=== PATIENT | female | born 1995 | race Caucasian/White ===

== ENCOUNTER → 2018-05-08 09:56 | Outpatient (CLI) | payer BC, SELFPAY ==
[2018-05-07 22:11] LABS: Chlamydia Trachomatis by PCR Negative (Negative); Neisserai gonorrhoeae by PCR Negative (Negative); Probe Check PASS; Sample Adequacy Control PASS; Specimen Processing Control PASS
[2018-05-08 11:18] LABS: Basophil# 0.01 X10^3/uL; Basophil% 0.1 % (0-1); Eosinophil# 0.06 X10^3/uL; Eosinophils% 0.6 % (0-5); Hematocrit 40.2 % (37-47); Hemoglobin 13.3 g/dl (12.0-15.0); Lymphocyte % 18.3 % (19-41); Mean Corp Hgb Conc 33.1 g/gl (32-36); Mean Corpuscular Hgb 31.1 pg (27.0-32.0); Mean Corpuscular Volume 93.9 fL (81-99); Mean Platelet Vol. 8.6 fl (6.2-12.0); Monocyte% 5.4 % (0-10); Neutrophil % 75.5 % (47-70); POSITIVE COUNT NO; POSITIVE DIFFERENTIAL NO; POSITIVE MORPHOLOGY NO; Platelet Count 303 K/mm3 (150-450); RBC Distribution Width CV 12.7 % (11.6-14.6); RBC Distribution Width SD 43.5 fl (35.1-43.9); Red Blood Count 4.28 M/mm3 (4.2-5.4); White Blood Count 9.3 K/mm3 (4.4-11.0)
[2018-05-08 12:07] LABS: Glucose Challenge Gest 1H 50g 128 mg/dL (70-140)
[2018-05-09 10:27] LABS: HIV - WCH Non-Reactive (Nonreactive); Rubella IgG 43.3 IU/mL
[2018-05-10 17:20] LABS: HEPATITIS B SURFACE AG Negative (Negative)
[2018-05-11 05:01] LABS: Rapid Plasmin Reagin (RPR) NONREACTIVE (NONREACTIVE)
== END ==
PROVIDERS: Family Provider Student in an Organized Health Care Education/Training Program; PCP Student in an Organized Health Care Education/Training Program; Visit Provider Obstetrics & Gynecology
DX: O09.90 Supervision of high risk pregnancy, unspecified, unspecified trimester (principal)
CPT/HCPCS: 36415; 82950; 85025; 86592; 86703; 86762; 86850; 86900; 87086; 87088; 87340; 87491; 87591

== ENCOUNTER → 2018-07-17 12:48 | Outpatient (CLI) | payer BC, SELFPAY ==
--- NOTE | 2018-07-17 12:49 | US_ITS ---
STUDY: SECOND AND THIRD TRIMESTER OBSTETRICAL ULTRASOUND REASON FOR EXAM: Female, 23 years old. Routine survey. LMP: March 05, 2018. TECHNIQUE: Transabdominal PRIOR ULTRASOUND: None. FINDINGS: There is a single intrauterine fetus. The fetus is in a variable presentation. There is demonstrated cardiac activity with a heart rate of 146 bpm. There is a normal amniotic fluid volume. The largest amniotic fluid pocket measures 6.0 cm x 4.5 cm. The amniotic fluid index (ALTAF) is normal. The placenta is anterior with a complete previa. A short segment of the placenta covers the os There are Grade 0 placental changes. The cervix measures 3.4 cm in length. The bilateral adnexal regions are normal. BIOMETRY: BPD: 4.48 cm: 19 weeks, 4 days HC: 16.52 cm: 19 weeks, 2 days AC: 14.28 cm: 19 weeks, 5 days FL: 3.18 cm: 20 weeks, 0 days CI: 80% FL/BPD: 71% FL/HC: FL/AC: 22% HC/AC: 1.16 age by current US: 19 weeks, 5 days. SAI by current US: December 06, 2018. Estimated weight: 308 grams, +/- 45 grams, 78 %. Age by LMP: 19 weeks, 1 days. SAI by LMP: December 10, 2018. ANATOMY: Gender: Male Cranium: Normal lateral ventricles. Normal choroid plexus. Normal cerebellum. Normal cisterna magna. Normal face, nose and lips. Chest: Normal 4-chamber heart. Abdomen/Pelvis: Normal diaphragm. Normal stomach. Normal abdominal wall. Normal cord insertion. Normal 3 vessel cord. Normal kidneys. Normal bladder. Spine: Normal cervical spine. Normal thoracic spine. Normal lumbar spine. Normal sacrum. Extremities: Normal bilateral upper extremities. Normal bilateral lower extremities. US/OB Anatomy Scan IMPRESSION: Single live intrauterine gestation with a mean gestational age of 19 weeks and 5 days. Anterior complete placenta previa. A short segment of the placenta covers the cervical os. A follow-up sonogram is recommended. Electronically Signed: Karthikeyan Kruse MD at 8:29 EDT Tel [phone], Service support ,
== END ==
LOC: OPUS 12:49
PROVIDERS: Family Provider Student in an Organized Health Care Education/Training Program; PCP Student in an Organized Health Care Education/Training Program; Visit Provider Nurse Practitioner Women's Health
DX: Z34.92 Encounter for supervision of normal pregnancy, unspecified, second trimester (principal)
CPT/HCPCS: 76805

== ENCOUNTER 2018-08-20 17:15 | Outpatient (CLI) | payer BC, SELFPAY ==
[2018-08-20 18:03] VITALS: BMI 33.1
[2018-08-20 18:37] LABS: Mucous, Urine 0 SEEN /hpf (<or=2+); Red Blood Cells-Urine 0 SEEN /hpf (0-5)
[2018-08-20 18:40] LABS: Color, Urine Yellow (Yellow); Glucose, Dipstick Normal (Normal); Ketone-Dipstick Negative (Negative); Leukocyte Esterase-Dipstick 25 /ul (Negative); Nitrite-Dipstick Negative (Negative); Occult Blood-Urine Negative /ul (Negative); Protein-Dipstick 15 mg/dl (Negative); Specific Gravity, Urine 1.025 (1.002-1.030); Urine Bilirubin Dipstick Negative (Negative); Urine Clarity Clear (Clear); Urine Urobilinogen 1 mg/dl (Normal)
[2018-08-20 18:49] LABS: Bacteria 1+ /hpf (None Seen); Squamous Epithelial Cells - UA 0-5 SEEN /hpf (5-10); White Blood Cells 0-5 SEEN /hpf (0-5)
--- NOTE | 2018-08-20 21:02 | OB.TRI.HP_ITS ---
- Problem List (1) Pelvic pressure in female Status: Acute History of Present Illness Date of Service: 08/20/18 Was patient seen by the physician?: Yes Reason For Visit: R/O LABOR Date of Service: 08/20/18 Final SAI: 12/10/18 Gestational age: 24 Weeks and 0 Days History of Present Illness: 23-year-old at 24 weeks presents with pelvic pressure. She denied any vaginal bleeding or loss of fluid she has a history of cervical shortening and a placenta previa. Patient denies any vaginal bleeding. She has a history of a previous term delivery via . Recent ultrasound showed a placenta previa that was anterior without any signs of accreta. She denies any dysuria or urinary urgency or frequency Allergies No Known Allergies Allergy (Verified 08/20/18 18:05) - Pertinent Past Medical History Medical History: Past Medical History (Last Reviewed 08/06/18 @ 16:04 by Lorelei Grant) Acid reflux Anxiety Going to counseling Bicornate uterus Surgical History: Past Surgical History (Last Reviewed 08/06/18 @ 16:04 by Lorelei Grant) H/O section Onset Date: ~2009 Laboratory Studies: Laboratory Tests 08/20/18 Range/Units 18:25 Urine Color Yellow (Yellow) Urine Clarity Clear (Clear) Urine pH 6.0 (5.0 - 8.0) Ur Specific [place] 1.025 (1.002-1.030) Urine Protein 15 H (Negative) mg/dl Urine Glucose (UA) Normal (Normal) mg/dl Urine Ketones Negative (Negative) mg/dl Urine Occult Blood Negative (Negative) /ul Urine Nitrite Negative (Negative) Urine Bilirubin Negative (Negative) mg/dL Urine Urobilinogen 1 H (Normal) mg/dl Ur Leukocyte Esterase 25 H (Negative) /ul Urine RBC 0 SEEN (0-5) /hpf Urine WBC 0-5 SEEN (0-5) /hpf Ur Squamous Epith Cells 0-5 SEEN (5-10) /hpf Urine Bacteria 1+ (None Seen) /hpf Urine Mucus 0 SEEN (<or=2+) /hpf Review of Systems Constitutional: Denies: Fever, Malaise Eyes: Denies: Blurred vision, Vision Change HEENT: Denies: Head Aches, Visual Changes Cardiovascular: Denies: Chest Pain, Palpitations Respiratory: Denies: Cough, Shortness of Breath, Wheezing Gastrointestinal: Denies: Abdominal Pain, Diarrhea, Nausea, Vomiting Genitourinary: Denies: Dysuria, Hematuria Musculoskeletal: Denies: Joint Pain, Muscle pain Skin: Denies: Lesions, Rash Neurological: Denies: Blurred vision, Focal weakness, Headaches Psychiatric: Denies: Anxiety, Depression Endocrine: Denies: Heat/ Cold Intolerance Hematologic/ Lymphatic: Denies: Easy Bruising, Easy Bleeding Physical Exam General: Alert, Cooperative, No apparent distress HEENT: Atraumatic, Normocephalic. Negative for: Thyromegaly, Lymphadenopathy Cardiovascular: Regular rate Lungs: Normal air movement Abdomen: Soft, Non Tender, Gravid Neurological: Deep Tendon Reflexes 2+/4 and Symmetrical, Neuro grossly intact. 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 Negative for: Vulvar lesions Estimated gestational size: Appropriate for gestational size Presentation: Cephalic Cervix Dilation (cm): 0 - Cervix checked visually with a speculum NST - FHR Rate Baby A Baseline: 140 Uterine Activity:: No contractions present Impression/Plan 23-year-old at 24 weeks presents with pelvic pressure History of cervical shortening on vaginal progesterone. On visual inspection cervix is closed and does not appear to be visually effaced. No contractions on the monitor. Plan discharged home
== END 2018-08-20 19:36 | disposition home or self-care (01) ==
LOC: WPOUT 17:34 → WP 17:35
PROVIDERS: Family Provider Student in an Organized Health Care Education/Training Program; PCP Student in an Organized Health Care Education/Training Program; Referring Provider Obstetrics & Gynecology; Visit Provider Obstetrics & Gynecology
DX: O26.892 Other specified pregnancy related conditions, second trimester (principal); R10.2 Pelvic and perineal pain; Z3A.24 24 weeks gestation of pregnancy
CPT/HCPCS: 59025; 59050; 76815; 81001; 87086; 87088; 99218; G0378

== ENCOUNTER → 2018-09-03 16:18 | Outpatient (CLI) | payer BC, SELFPAY ==
[2018-09-03 17:11] LABS: Absolute Lymphocyte Count 1.78 X10^3/ul (0.83-4.51); Absolute Neutrophil Count 10.6 X10^3/uL (2.0-7.7); Basophil# 0.01 X10^3/uL; Basophil% 0.1 % (0-1); Eosinophils% 0.7 % (0-5); Hematocrit 34.7 % (37-47); Hemoglobin 11.3 g/dl (12.0-15.0); Lymphocyte # 1.78 X10^3/ul (4.0); Lymphocyte % 13.3 % (19-41); Mean Corp Hgb Conc 32.6 g/gl (32-36); Mean Corpuscular Hgb 31.8 pg (27.0-32.0); Mean Corpuscular Volume 97.7 fL (81-99); Mean Platelet Vol. 8.5 fl (6.2-12.0); Monocyte# 0.83 X10^3/uL; Monocyte% 6.2 % (0-10); Neutrophil # 10.58 X10^3/uL (2.7-7.7); Neutrophil % 79.4 % (47-70); Platelet Count 325 K/mm3 (150-450); RBC Distribution Width CV 12.8 % (11.6-14.6); RBC Distribution Width SD 43.9 fl (35.1-43.9); Red Blood Count 3.55 M/mm3 (4.2-5.4); White Blood Count 13.3 K/mm3 (4.4-11.0)
[2018-09-03 17:14] LABS: Glucose Challenge Gest 1H 50g 133 mg/dL (70-140)
[2018-09-03 17:16] LABS: POSITIVE COUNT NO; POSITIVE DIFFERENTIAL NO; POSITIVE MORPHOLOGY NO
[2018-09-03 17:17] LABS: Protein, Urine (Random) 21.1 mg/dL (<11.9); Protein:Creat Ratio 142 mg/g CRE (0-200)
== END ==
LOC: LAB 16:20
PROVIDERS: Family Provider Student in an Organized Health Care Education/Training Program; PCP Student in an Organized Health Care Education/Training Program; Referring Provider Obstetrics & Gynecology; Visit Provider Obstetrics & Gynecology
DX: O12.10 Gestational proteinuria, unspecified trimester (principal); Z3A.00 Weeks of gestation of pregnancy not specified
CPT/HCPCS: 36415; 82570; 82950; 84156; 85025

== ENCOUNTER → 2018-09-03 19:49 | Outpatient (CLI) | payer BC, SELFPAY ==
[2018-09-03 20:27] LABS: Protein, Urine (Random) 16.7 mg/dL (<11.9); Protein:Creat Ratio 218 mg/g CRE (0-200)
== END ==
PROVIDERS: Family Provider Student in an Organized Health Care Education/Training Program; PCP Student in an Organized Health Care Education/Training Program; Referring Provider Obstetrics & Gynecology; Visit Provider Obstetrics & Gynecology
DX: O12.10 Gestational proteinuria, unspecified trimester (principal); Z3A.00 Weeks of gestation of pregnancy not specified
CPT/HCPCS: 82570; 84156

== ENCOUNTER 2018-09-08 20:45 | Outpatient (CLI) | payer BC, MEDICAID, SELFPAY ==
[2018-09-08 20:59] VITALS: BMI 33.5
[2018-09-08 21:23] LABS: Hematocrit 34.4 % (37-47); Hemoglobin 11.4 g/dl (12.0-15.0); Mean Corp Hgb Conc 33.1 g/gl (32-36); Mean Corpuscular Hgb 31.8 pg (27.0-32.0); Mean Corpuscular Volume 96.1 fL (81-99); Mean Platelet Vol. 8.2 fl (6.2-12.0); Platelet Count 258 K/mm3 (150-450); RBC Distribution Width CV 12.7 % (11.6-14.6); RBC Distribution Width SD 44.5 fl (35.1-43.9); Red Blood Count 3.58 M/mm3 (4.2-5.4); White Blood Count 11.1 K/mm3 (4.4-11.0)
[2018-09-08 21:28] LABS: Scan Indicated on CBC? Y/N NO
[2018-09-08 21:43] LABS: Fibrinogen 410 mg/dl (203-444)
--- NOTE | 2018-09-17 21:13 | OB.TRI.NOTE ---
- Problem List (1) Vaginal bleeding during Status: Acute (2) Antepartum cervical shortening Status: Acute Comment: given vaginal progesterone (3) Marginal insertion of umbilical cord Status: Acute Comment: growth US every 4 weeks (4) Placenta previa antepartum Status: Acute Comment: Resolved/Anterior previa, no accreata, previous C/S. MFM Consult US History of Present Illness Date of Service: 09/08/18 Was patient seen by the physician?: Yes Reason For Visit: BLEEDING History of Present Illness: patient presented with a small amount of vaginal bleeding- no clots, denied any regular ctx. cervix closed visibly. good fm Allergies No Known Allergies Allergy (Verified 09/17/18 15:05) - Pertinent Past Medical History Medical History: Past Medical History (Last Reviewed 09/17/18 @ 15:05 by Joyce Castro) Acid reflux Anxiety Going to counseling Bicornate uterus Surgical History: Past Surgical History (Last Reviewed 09/17/18 @ 15:05 by Joyce Castro) H/O section Onset Date: ~2009 Laboratory Studies: Laboratory Tests 09/08/18 09/08/18 Range/Units 21:10 21:10 WBC 11.1 H (4.4-11.0) K/mm3 RBC 3.58 L (4.2-5.4) M/mm3 Hgb 11.4 L (12.0-15.0) g/dl Hct 34.4 L (37-47) % MCV 96.1 (81-99) fL MCH 31.8 (27.0-32.0) pg MCHC 33.1 (32-36) g/gl RDW 12.7 (11.6-14.6) % RDW Differential 44.5 H (35.1-43.9) fl Plt Count 258 (150-450) K/mm3 MPV 8.2 (6.2-12.0) fl Fibrinogen 410 (203-444) mg/dl NST - FHR Rate Baby A Baseline: 145 Variability:: Moderate Accelerations:: 15 x 15 Decelerations:: None NST Reactive:: Yes FHR Category:: Category I Uterine Activity:: no regular Impression/Plan vaginal bleeding in . patient monitored and stable, dc home bleeding precautions reviewed
== END 2018-09-08 22:00 | disposition home or self-care (01) ==
LOC: WPOUT 20:50 → WP 20:51
PROVIDERS: Family Provider Student in an Organized Health Care Education/Training Program; PCP Student in an Organized Health Care Education/Training Program; Visit Provider Obstetrics & Gynecology
DX: O46.90 Antepartum hemorrhage, unspecified, unspecified trimester (principal); Z3A.00 Weeks of gestation of pregnancy not specified
CPT/HCPCS: 36415; 59025; 59050; 85027; 85384; 99218; G0378

== ENCOUNTER 2018-09-11 09:00 | Outpatient (CLI) | payer BC, MEDICAID, SELFPAY ==
[2018-09-11 09:08] VITALS: BMI 33.5
--- NOTE | 2018-09-11 09:08 | US_ITS ---
STUDY: SECOND AND THIRD TRIMESTER OBSTETRICAL ULTRASOUND - LIMITED REASON FOR EXAM: Female, 23 years old. Bleeding. History of placenta previa. LMP: March 05, 2018. PRIOR ULTRASOUND: Comparison is made with prior examination dated July 17, 2018. TECHNIQUE: Transabdominal and Transvaginal TECHNICAL QUALITY: Adequate. FINDINGS: There is a single intrauterine fetus. The fetus is in a cephalic presentation. There is demonstrated cardiac activity with a heart rate of 149 bpm. There is a normal amniotic fluid volume. The largest amniotic fluid pocket measures 5.8 cm. The amniotic fluid index (ALTAF) is 18.0 cm. The placenta is anterior with a complete previa. There are Grade 1 placental changes. There is a 2.9 cm x 2.6 cm x 0.9 cm hypoechoic finding deep to the placenta adjacent to the fundus. A similar appearing finding measuring 5.3 cm x 4.7 cm x 1.1 cm along the lower uterine segment near the cervix. These may represent focal areas of a retroplacental hematomas. The cervix measures 4.0 cm in length. US/OB Limited (No Biometrics) IMPRESSION: Anterior complete previa. Findings suggestive of a 2 retroplacental hematomas and possible separation as described. Electronically Signed: Karthikeyan Kruse MD at 11:10 EST Tel [phone], Service support ,
[2018-09-11 09:52] LABS: Hematocrit 34.9 % (37-47); Hemoglobin 11.4 g/dl (12.0-15.0); Mean Corp Hgb Conc 32.7 g/gl (32-36); Mean Corpuscular Hgb 31.5 pg (27.0-32.0); Mean Corpuscular Volume 96.4 fL (81-99); Mean Platelet Vol. 8.3 fl (6.2-12.0); Platelet Count 251 K/mm3 (150-450); RBC Distribution Width CV 12.8 % (11.6-14.6); RBC Distribution Width SD 44.9 fl (35.1-43.9); Red Blood Count 3.62 M/mm3 (4.2-5.4); Scan Indicated on CBC? Y/N NO
[2018-09-11 10:05] LABS: Fibrinogen 385 mg/dl (203-444)
[2018-09-11] MEDS: Betamethasone/Betamethasone 30 MG/5 ML Vial 12 MG IM (11:05)
--- NOTE | 2018-09-17 21:26 | OB.TRI.HP_ITS ---
- Problem List (1) Vaginal bleeding during Status: Acute (2) Antepartum cervical shortening Status: Acute Comment: given vaginal progesterone (3) Marginal insertion of umbilical cord Status: Acute Comment: growth US every 4 weeks (4) Placenta previa antepartum Status: Acute Comment: Resolved/Anterior previa, no accreata, previous C/S. MFM Consult US (5) History of delivery, antepartum Status: Acute Comment: considering , education given History of Present Illness Date of Service: 09/11/18 Was patient seen by the physician?: Yes Reason For Visit: BLEEDING History of Present Illness: patient evaluated and given steroid dose secondary to bleeding in for the second time in several days. ordered ultrasound and showed abruption in lower uterine segment over the previa, but fibrinogens and Hg are stable. Allergies No Known Allergies Allergy (Verified 09/17/18 15:05) - Pertinent Past Medical History Medical History: Past Medical History (Last Reviewed 09/17/18 @ 15:05 by Joyce Castro) Acid reflux Anxiety Going to counseling Bicornate uterus Surgical History: Past Surgical History (Last Reviewed 09/17/18 @ 15:05 by Joyce Castro) H/O section Onset Date: ~2009 Laboratory Studies: Laboratory Tests 09/11/18 09/11/18 Range/Units 09:40 09:40 WBC 11.0 (4.4-11.0) K/mm3 RBC 3.62 L (4.2-5.4) M/mm3 Hgb 11.4 L (12.0-15.0) g/dl Hct 34.9 L (37-47) % MCV 96.4 (81-99) fL MCH 31.5 (27.0-32.0) pg MCHC 32.7 (32-36) g/gl RDW 12.8 (11.6-14.6) % RDW Differential 44.9 H (35.1-43.9) fl Plt Count 251 (150-450) K/mm3 MPV 8.3 (6.2-12.0) fl Fibrinogen 385 (203-444) mg/dl Review of Systems Constitutional: Denies: Fever, Malaise Eyes: Denies: Blurred vision, Vision Change HEENT: Denies: Head Aches, Visual Changes Cardiovascular: Denies: Chest Pain, Palpitations Respiratory: Denies: Cough, Shortness of Breath, Wheezing Gastrointestinal: Denies: Abdominal Pain, Diarrhea, Nausea, Vomiting Genitourinary: Denies: Dysuria, Hematuria Gynecological: Reports: Vaginal bleeding Musculoskeletal: Denies: Joint Pain, Muscle pain Skin: Denies: Lesions, Rash Neurological: Denies: Blurred vision, Focal weakness, Headaches Psychiatric: Denies: Anxiety, Depression Endocrine: Denies: Heat/ Cold Intolerance Hematologic/ Lymphatic: Denies: Easy Bruising, Easy Bleeding Physical Exam General: Alert, Cooperative, No apparent distress HEENT: Atraumatic, Normocephalic. Negative for: Thyromegaly, Lymphadenopathy Cardiovascular: Regular rate Lungs: Normal air movement Abdomen: Soft, Non Tender, Gravid Neurological: Deep Tendon Reflexes 2+/4 and Symmetrical, Neuro grossly intact. 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 Negative for: Vulvar lesions Estimated gestational size: Appropriate for gestational size Presentation: Cephalic NST - FHR Rate Baby A Baseline: 140 Variability:: Moderate Accelerations:: 15 x 15 Decelerations:: None NST Reactive:: Yes FHR Category:: Category I Uterine Activity:: no regular Impression/Plan 23 yo 28 week with abruption, vaginal bleeding and previa prematurity- celestone given and discussed with mfm- recommend transport for extended stay and observation.
== END 2018-09-11 15:20 | disposition short-term general hospital (02) ==
LOC: WPOUT 09:07 → WP 09:07
PROVIDERS: Family Provider Student in an Organized Health Care Education/Training Program; PCP Student in an Organized Health Care Education/Training Program; Referring Provider Obstetrics & Gynecology; Visit Provider Obstetrics & Gynecology
DX: O45.92 Premature separation of placenta, unspecified, second trimester (principal); O44.12 Complete placenta previa with hemorrhage, second trimester; Z3A.28 28 weeks gestation of pregnancy
CPT/HCPCS: 36415; 59025; 59050; 76815; 85027; 85384; 96372; 99218; A4216; G0378; J0702

== ENCOUNTER → 2018-10-01 17:14 | Outpatient (CLI) | payer BC, SELFPAY ==
[2018-10-01 15:56] VITALS: BMI 33.5
--- OUTSIDE RECORDS SUMMARY | 2018-11-13 16:27 | XMS RPT_ITS ---
:1995 Author Organization [place] Support Name Relationship Address Phone RENZO TRIMBLE Unavailable [address] + [place] [address] JUAN R MOURA Unavailable [address] + [place] [address] WAYSA Unavailable [address] + [place] [address] RENZO TRIMBLE Unavailable [address] + [place] [address] SANDRA MOURAI Unavailable [address] + [place] [address] WAYSA Unavailable [address] + [place] [address] RENZO TRIMBLE Unavailable [address] + [place] [address] JUAN R MOURA Unavailable [address] + [place] [address] WAYSA Unavailable [address] + [place] [address] RENZO TRIMBLE Unavailable [address] + [place] [address] JUAN R MOURA Unavailable [address] + [place] [address] WAYSA Unavailable [address] + [place] [address] RENZO TRIMBLE Unavailable [address] + [place] [address] SANDRA MOURAI Unavailable [address] + [place] [address] WAYSA Unavailable [address] + [place] [address] RENZO TRIMBLE Unavailable [address] + [place] [address] ZENY, JUAN R Unavailable [address] + [place] [address] WAYSA Unavailable [address] + [place] [address] RENZO TRIMBLE Unavailable [address] + [place] [address] MOURA, JUAN R Unavailable [address] + [place] [address] WAYSA Unavailable [address] + [place] [address] RENZO TRIMBLE Unavailable [address] + [place] [address] MOURA, JUAN R Unavailable [address] + [place] [address] WAYSA Unavailable [address] + [place] [address] RENZO TRIMBLE Unavailable [address] + [place] [address] MOURA, JUAN R Unavailable [address] + [place] [address] WAYSA Unavailable [address] + [place] [address] MOURA, JUAN R Unavailable Unavailable + MOURA, JUAN R Unavailable Unavailable + MOURA, JUAN R Unavailable Unavailable + MOURA, JUAN R Unavailable Unavailable + MOURA, JUAN R Unavailable Unavailable + RENZO TRIMBLE Unavailable [address] + [place] [address] MOURA, JUAN R Unavailable [address] + [place] [address] WAYSA Unavailable [address] + [place] [address] RENZO TRIMBLE Unavailable [address] + [place] [address] MOURA, JUAN R Unavailable [address] + [place] [address] WAYSA Unavailable [address] + [place] [address] RENZO TRIMBLE Unavailable [address] + [place] [address] SANDRA MOURAI Unavailable [address] + [place] [address] WAYSA Unavailable [address] + [place] [address] RENZO TRIMBLE Unavailable [address] + [place] [address] ZENY JUAN R Unavailable [address] + [place] [address] WAYSA Unavailable [address] + [place] [address] ZENY, JUAN R Unavailable Unavailable + RENZO TRIMBLE Unavailable [address] + [place] [address] SANDRA MOURAI Unavailable [address] + [place] [address] WAYSA Unavailable [address] + [place] [address] RENZO TRIMBLE Unavailable [address] + [place] [address] JUAN R MOURA Unavailable [address] + [place] [address] WAYSA Unavailable [address] + [place] [address] RENZO TRIMBLE Unavailable [address] + [place] [address] JUAN R MOURA Unavailable [address] + [place] [address] WAYSA Unavailable [address] + [place] [address] RENZO TRIMBLE Unavailable [address] + [place] [address] ZENY JUAN R Unavailable [address] + [place] [address] WAYSA Unavailable [address] + [place] [address] RENZO TRIMBLE Unavailable [address] + [place] [address] ZENY JUAN R Unavailable [address] + [place] [address] WAYSA Unavailable [address] + [place] [address] ZENY JUAN R Unavailable Unavailable + RENZO TRIMBLE Unavailable [address] + [place] [address] WAYSA Unavailable [address] + [place] [address] RENZO TRIMBLE Unavailable [address] + [place] [address] ZENY JUAN R Unavailable Unavailable + [place] [address] WAYSA Unavailable [address] + [place] [address] RENZO TRIMBLE Unavailable [address] + [place] [address] WAYSA Unavailable [address] + [place] [address] RENZO TRIMLBE Unavailable [address] + [place] [address] WAYSA Unavailable [address] + [place] [address] RENZO TRIMBLE Unavailable [address] + [place] [address] WAYSA Unavailable [address] + [place] [address] RENZO TRIMBLE Unavailable [address] + [place] [address] WAYSA Unavailable [address] + [place] [address] RENZO TRIMBLE Unavailable [address] + [place] [address] WAYSA Unavailable [address] + [place] [address] RENZO TRIMBLE Unavailable [address] + [place] [address] WAYSA Unavailable [address] + [place] [address] RENZO TRIMBLE Unavailable [address] + [place] [address] WAYSA Unavailable [address] + [place] [address] Care Team Providers Name Role Phone Savana Solis Admitting Unavailable Marcanthony, Savana Attending Unavailable Marcanthony, Savana Referring Unavailable Healy, Meño Primary Care Unavailable Marcanthony, Savana Consulting Unavailable Marcanthony, Savana Admitting Unavailable Marcanthony, Savana Attending Unavailable Marcanthony, Savana Referring Unavailable Healy, Meño Primary Care Unavailable Marcanthony, Savana Consulting Unavailable Marcanthony, Savana Admitting Unavailable Marcanthony, Savana Attending Unavailable Marcanthony, Savana Referring Unavailable Healy, Meño Primary Care Unavailable Marcanthony, Savana Consulting Unavailable Marcanthony, Savana Attending Unavailable Healy, Meño Referring Unavailable Healy, Meño Primary Care Unavailable Marcanthony, Savana Attending Unavailable Marcanthony, Savana Referring Unavailable Healy, Meño Primary Care Unavailable Nita, Farrah Attending Unavailable Healy, Meño Referring Unavailable Healy, Meño Primary Care Unavailable Healy, Meño Attending Unavailable Marcanthony, Savana Attending Unavailable Healy, Meño Referring Unavailable Healy, Meño Primary Care Unavailable Nita, Farrah Attending Unavailable Healy, Meño Primary Care Unavailable Marcanthony, Savana Attending Unavailable Healy, Meño Referring Unavailable Marcanthony, Savana Attending Unavailable Marcanthony, Savana Referring Unavailable Healy, Meño Primary Care Unavailable Marcanthony, Savana Attending Unavailable Marcanthony, Savana Referring Unavailable Healy, Meño Primary Care Unavailable Marcanthony, Savana Consulting Unavailable Marcanthony, Savana Attending Unavailable Healy, Meño Referring Unavailable Marcanthony, Savana Attending Unavailable Marcanthony, Savana Referring Unavailable Healy, Meño Primary Care Unavailable Marcanthony, Savana Attending Unavailable Healy, Meño Primary Care Unavailable Marcanthony, Savana Referring Unavailable Marcanthony, Savana Admitting Unavailable Marcanthony, Savana Attending Unavailable Marcanthony, Savana Referring Unavailable Healy, Meño Primary Care Unavailable Marcanthony, Savana Consulting Unavailable Marcanthony, Savana Admitting Unavailable Nita, Farrah Attending Unavailable Marcanthony, Savana Referring Unavailable Healy, Meño Primary Care Unavailable Marcanthony, Savana Consulting Unavailable Marcanthony, Savana Admitting Unavailable Baker, Farrah Attending Unavailable Marcanthony, Savana Referring Unavailable Healy, Meño Primary Care Unavailable Marcanthony, Savana Consulting Unavailable Marcanthony, Savana Admitting Unavailable Marcanthony, Savana Attending Unavailable Marcanthony, Savana Referring Unavailable Healy, Meño Primary Care Unavailable Marcanthony, Savana Consulting Unavailable Marcanthony, Savana Attending Unavailable Healy, Meño Primary Care Unavailable Marcanthony, Savana Attending Unavailable Marcanthony, Savana Referring Unavailable Healy, Meño Primary Care Unavailable Nita, Farrah Attending Unavailable Healy, Meño Referring Unavailable Marcanthony, Savana Attending Unavailable Healy, Meño Primary Care Unavailable Marcanthony, Savana Consulting Unavailable Baker, Farrah Attending Unavailable Healy, Meño Referring Unavailable Nita, Farrah Attending Unavailable Nita, Farrah Referring Unavailable Healy, Meño Primary Care Unavailable Marcanthony, Savana Admitting Unavailable Marcanthony, Savana Attending Unavailable Marcanthony, Savana Referring Unavailable Healy, Meño Primary Care Unavailable Joyce Castro Attending Unavailable HEALY, MEÑO L Attending Unavailable JAYA NELSON, EDUARDO Admitting Unavailable BACSTANISLAW BENTON Attending Unavailable JAYA BUCHFARZANA, EDUARDO Admitting Unavailable BACCHETAN STANISLAW Attending Unavailable EDUARDO RICCI Attending Unavailable MALCOLMANTHONY, SAVANA E Referring Unavailable NO PRIMARY CARE, Primary Care Unavailable EDUARDO RICCI Attending Unavailable MALCOLMANTHONY, SAVANA E Referring Unavailable NO PRIMARY CARE, Primary Care Unavailable ANA GILMAN Attending Unavailable MALCOLMANTHONY, SAVANA E Referring Unavailable NO PRIMARY CARE, Primary Care Unavailable EDUARDO RICCI Attending Unavailable EDUARDO RICCI Referring Unavailable NO PRIMARY CARE, Primary Care Unavailable THERESA CHAVARRIA Attending Unavailable MARCANTHONY, SAVANA E Referring Unavailable NO PRIMARY CARE, Primary Care Unavailable THERESA CHAVARRIA Attending Unavailable MARCANTHONY, SAVANA E Referring Unavailable NO PRIMARY CARE, Primary Care Unavailable THERESA CHAVARRIA Attending Unavailable MARCANTHONY, SAVANA E Referring Unavailable NO PRIMARY CARE, Primary Care Unavailable EDUARDO RICCI Attending Unavailable MARCANTHONY, SAVANA E Referring Unavailable NO PRIMARY CARE, Primary Care Unavailable EDUARDO RICCI Attending Unavailable MARCANTHONY, SAVANA E Referring Unavailable NO PRIMARY CARE, MD Primary Care Unavailable EDUARDO MENJIVAR Admitting Unavailable HEALY, MEÑO L Primary Care Unavailable ZULEYKA D.ODario PRUETT Attending Unavailable EDUARDO MENJIVAR Referring Unavailable MEÑO HEALY Primary Care Unavailable EDUARDO MENJIVAR Admitting Unavailable ZULEYKA, D.ODario PRUETT Attending Unavailable MEÑO HEALY Primary Care Unavailable PROBLEMS PROBLEMS DATE TYPE CONDITION / CODE ATTENDING STATUS SOURCE 10/08/2018 Active Unknown / STANISLAW GARDINER Active [facility]K(Unknown[facility] Other [place] Repository 10/01/2018 Unknown N39.0 - Urinary Nita, Molly Active [place] tract infection, Community site not specified Hospital / N39.0(ICD-10) Repository 09/17/2018 Unknown Z23 - Encounter BakerFarrah Active [facility] for immunization / Community Z23(ICD-10) Hospital Repository 09/11/2018 Active Other malformation STANISLAW GARDINER Active [facility] of placenta, Clinic Other unspecified [place] trimester / Repository O43.199(ICD-10) 09/11/2018 Active Complete placenta STANISLAW GARDINER Active [facility] previa nos or Clinic Other without [place] hemorrhage, second Repository trimester / O44.02(ICD-10) 09/11/2018 Admitting Unknown / BACAK, D.O. Active [facility] diagnosis UNK(Unknown) [facility] Repository 09/04/2018 Unknown O12.10 - Marcanthony, Active [facility] Gestational [facility] proteinuria, Hospital unspecified Repository trimester / O12.10(ICD-10) 09/03/2018 Unknown Z68.30 - Body mass Marcanthony, Active [facility] index (BMI) [facility] 30.0-30.9, adult / Hospital Z68.30(ICD-10) Repository 09/03/2018 Unknown O34.219 - Maternal Marcanthony, Active [facility] care for [facility] unspecified type Hospital scar from previous Repository delivery / O34.219(ICD-10) 09/03/2018 Unknown Z34.82 - Encounter Marcanthony, Active [place] for supervision of [facility] other normal Hospital , second Repository trimester / Z34.82(ICD-10) 09/03/2018 Unknown O44.00 - Complete Marcanthony, Active [facility] placenta previa [facility] NOS or without Hospital hemorrhage, Repository unspecified trimester / O44.00(ICD-10) 09/03/2018 Unknown Z34.90 - Encounter Will, Active [facility] for supervision of [facility] normal , Hospital unspecified, Repository unspecified trimester / Z34.90(ICD-10) 09/03/2018 Unknown Z3A.26 - 26 weeks Marcanthony, Active [facility] gestation of [facility] / Hospital Z3A.26(ICD-10) Repository 09/03/2018 Unknown O26.879 - Cervical Marcanthony, Active [facility] shortening, [facility] unspecified Hospital trimester / Repository O26.879(ICD-10) 08/06/2018 Unknown Z3A.22 - 22 weeks Malcolmanthony, Active [place] gestation of [facility] / Hospital Z3A.22(ICD-10) Repository 07/02/2018 Unknown Z3A.17 - 17 weeks Marcanthony, Active [facility] gestation of [facility] / Hospital Z3A.17(ICD-10) Repository 06/04/2018 Unknown Z34.81 - Encounter Farrah Moya Active [place] for supervision of [facility] other normal Hospital , first Repository trimester / Z34.81(ICD-10) 06/04/2018 Unknown Z3A.13 - 13 weeks Farrah Moya Active [place] gestation of [facility] / Hospital Z3A.13(ICD-10) Repository 05/08/2018 Unknown O09.90 - Will, Active [facility] Supervision of [facility] high risk Hospital , Repository unspecified, unspecified trimester / O09.90(ICD-10) PROCEDURES PROCEDURES No Procedure Records FoundRESULTS RESULTS BIOPHYSICAL PROFILE Observed: 10/22/2018 Status: F Source: [place] 8:53 AM [facility] RE[facility]IT[facility] Imaging Services [address] [place] [address] Biophysical Profile MR#: [id number] Acct: [id number] Name: DIANA RIVAS Kirk Rep #: [id number] : 1995 F 23 From: Karthikeyan Kruse MD PCP: Meño Davis DO Status: ADM IN Study: Biophysical Profile Date of Exam: 10/22/18 Exam# [id number] Ordering Dr: Savana Solis MD STUDY: OBSTETRICAL ULTRASOUND - BIOPHYSICAL PROFILE REASON FOR EXAM: Female, 23 years old. well-being. LMP: March 05, 2018. PRIOR ULTRASOUND: Comparison is made with prior study dated October 18, 2018. TECHNIQUE: Transabdominal TECHNICAL QUALITY: Adequate. FINDINGS: There is a single intrauterine fetus. The fetus is in a cephalic presentation. There is demonstrated cardiac activity with a heart rate of 158 bpm. There is a normal amniotic fluid volume. The largest amniotic fluid pocket measures 6.4 cm x 10.3 cm. The amniotic fluid index (ALTAF) is 17.4 cm. The placenta is There are Grade 0 placental changes. Age by LMP: 33 weeks, 0 days. SAI by LMP: December 10, 2017. Gender: Male BIOPHYSICAL PROFILE: Breathing Movements (FBM): 2 Gross Body Movements (GBM): 2 Tone (FT): 2 Amniotic Fluid Volume (AFV): 2 TOTAL SCORE: 8 / 8 US/Biophysical Profile IMPRESSION: Normal biophysical profile of 06/13. Electronically Signed: Karthikeyan Kruse MD at 14:30 EST Tel [phone], Service support , CC: Meño Davis DO; Savana Solis MD Field Crop Grower: Signed CBC W/DIFF, AUTOMATED Collected: 10/21/2018 Status: F Source: [place] 9:40 AM [facility]POS[facility] TYPE CODE TESTS RESULT OUT OF RANGE REFERENCE UNITS LAB L100.1000 4.4-11.0 K/mm3 High WBC 14.3 LAB L100.1200 4.2-5.4 M/mm3 Low RBC 4.02 LAB L100.1300 12.0-15.0 g/dl Normal HGB 12.6 LAB L100.1400 37-47 % Normal HCT 37.8 LAB L100.1500 81-99 fL Normal MCV 94.0 LAB L100.1600 27.0-32.0 pg Normal MCH 31.3 LAB L100.1700 32-36 g/gl Normal MCHC 33.3 LAB L100.1810 11.6-14.6 % Normal RDW CV 13.1 LAB L100.1820 35.1-43.9 fl High RDW SD 44.9 LAB L100.1900 150-450 K/mm3 Normal PLT 312 LAB L100.2000 6.2-12.0 fl Normal MPV 8.3 LAB L100.2100 47-70 % High NEUT% 78.1 LAB L100.2200 19-41 % Low LY% 15.6 LAB L100.2300 0-10 % Normal MONO% 5.5 LAB L100.2400 0-5 % Normal EO% 0.4 LAB L100.2500 0-1 % Normal BASO% 0.1 LAB L100.2550 0.0-0.9 % Normal IM GRAN % 0.300 Result Comment: IG% - Immature Granulocytes (promyelocytes, myelocytes and metamyelocytes) > 1% indicates that a LEFT SHIFT is Present. LAB L100.2620 2.0-7.7 X10 3/uL High Absolute Neut 11.2 LAB L100.2720 0.83-4.51 X10 3/ul Normal Absolute Lymph 2.23 Performed By: #### L100.0100 #### [facility] [address] [place], [place], [address] TYPE AND SCREEN Collected: 10/21/2018 Status: F Source: [place] 9:40 AM [facility] RE[facility] Order Comment: Reason for Type AND Screen/Red Cells: ROUTINE TYPE CODE TESTS RESULT OUT OF RANGE REFERENCE UNITS LAB B10.0800 A Normal BLOOD TYPE GEL POSITIVE LAB B100.4000 Normal Antibody NEGATIVE Screen Performed By: #### B101.7450 #### [facility] [address] [place], [address] TYPE AND SCREEN Collected: 10/18/2018 Status: F Source: [place] 9:00 AM [facility] Order Comment: Reason for Type AND Screen/Red Cells: ROUTINE TYPE CODE TESTS RESULT OUT OF RANGE REFERENCE UNITS LAB B10.0800 A Normal BLOOD TYPE GEL POSITIVE LAB B100.4000 Normal Antibody NEGATIVE Screen Performed By: #### B101.7450 #### [facility] [address] [place], [address] BIOPHYSICAL PROFILE Observed: 10/18/2018 Status: F Source: [place] 7:26 AM [facility] Imaging Services [address] [place] [address] Biophysical Profile MR#: [id number] Acct: [id number] Name: DIANA RIVAS Rep #: [id number] : 1995 F 23 From: Karthikeyan Kruse MD PCP: Meño Davis DO Status: ADM IN Study: Biophysical Profile Date of Exam: 10/18/18 Exam# [id number] Ordering Dr: Savana Solis MD STUDY: OBSTETRICAL ULTRASOUND - BIOPHYSICAL PROFILE REASON FOR EXAM: Female, 23 years old. well-being. LMP: March 05, 2018. PRIOR ULTRASOUND: Comparison is made with prior study dated October 15, 2018. TECHNIQUE: Transabdominal TECHNICAL QUALITY: Adequate. FINDINGS: There is a single intrauterine fetus. The fetus is in a cephalic presentation. There is demonstrated cardiac activity with a heart rate of 156 bpm. There is a normal amniotic fluid volume. The largest amniotic fluid pocket measures 8 cm x 10 cm. The amniotic fluid index (ALTAF) is 29.9 cm. The placenta is anterior in location and is not low lying. There are Grade 0 placental changes. Gender: Male BIOPHYSICAL PROFILE: Breathing Movements (FBM): 2 Gross Body Movements (GBM): 2 Tone (FT): 2 Amniotic Fluid Volume (AFV): 2 TOTAL SCORE: US/Biophysical Profile IMPRESSION: Normal biophysical profile of 06/13. Electronically Signed: Karthikeyan Kruse MD at 13:35 EST Tel [phone], Service support , CC: Meño Davis DO; Savana Solis MD Field Crop Grower: Signed HISTORY AND PHYSICAL Observed: 10/16/2018 Status: F Source: [place] EXAM 9:31 PM [facility] Medical Records Department [address] [place] [address] History and Physical 10/15/18 1608 MR#: [id number] Acct: [id number] Name: DIANA RIVAS Rep #: [id number] : 1995 23 From: Savana Solis MD PCP: Meño Davis DO Status: ADM IN Y Location: [id number] ADDENDUM by Savana Solis MD on 10/16/18 at 2131 Code Visit correction- SAI is 12/10/18 and patient is 32 weeks 10/16/182130 <Electronically signed by Savana Solis MD> Date Savana Solis MD cc: Meño Davis DO; Savana Solis MD * Signed - Problem List (1) Vasa previa Status: Acute (2) Contraception management Status: Acute Qualifiers: Comment: Nexplanon at 6 wk pp visit-do insurance auth after 11/06/18 (3) Vaginal bleeding during Status: Acute (4) Antepartum cervical shortening Status: Acute Comment: given vaginal progesterone (5) Marginal insertion of umbilical cord Status: Acute Comment: growth US every 4 weeks (6) Placenta previa antepartum Status: Acute Comment: Resolved/Anterior previa, no accreata, previous C/S. MFM Consult US (7) Status: Acute Qualifiers: Comment: declines genetic and NTD screening. anatomy scan reviewed (8) History of delivery, antepartum Status: Acute Comment: considering , education given (9) BMI 30.0-30.9,adult Status: Acute Comment: ordered 1 tm glucola (10) Supervision of normal Status: Acute Qualifiers: Comment: PRR SAI 12/10/18 boy Adolfo PC Steph Renzo History Date of Admission: 10/15/18 Final SAI: 11/26/18 Gestational age: 34 Weeks and 0 Days History of this : This is a 23 year-old, at 32 weeks gestational age presents for admission secondary to vasa previa. she has had a complicated by shortened cervical length and intially a placenta previa, and now she has a vasa previa. she denies any bleeding, contractions, or discharge. 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.3 Surgical History: Surgical History (Last Reviewed 10/01/18 @ 15:57 by Lorelei Grant) H/O section Onset Date: 2009 Z98.891 Allergies No Known Allergies Allergy (Verified 10/15/18 08:23) Home Medications: Home Medications vit 123-iron 28 mg-folic acid 800 ylb-capsj-8a 235 mg capsule 1 cap PO QDAY 05/07/18 Famotidine 40 mg PO DAILY 09/08/18 Progesterone, Micronized [Prometrium] 200 mg VAGINAL DAILY 09/11/18 Sertraline HCl [Zoloft] 50 mg PO QDAY 10/15/18 Smoking Status: Never smoker Alcohol: None Number of Fetus(es): 1 History Past Pregnancies: Past Pregnancies Delivery Name GA/Weeks Outcome Route WeiInfant GeLabor LenAnesthesiDelivery Provider FOB Date [facility]ht [facility] Location Labs: Medications Generic Name Dose Route Start Last Admin Labor AND Delivery Reason for Admission Other (Please document other reason below) Other Reason for Admission: Vasa previa Mom's Microbiology 10/15/18 Unknown Genital vaginal Group B Streptococcus Culture - Pending Mom's Labs AND Results WBC RBC Hgb Hct MCV MCH MCHC RDW WBC 10.5 RBC 3.64 L Hgb 11.3 L Course Did the patient receive Yes care? Labs Blood Type: A RH: POSITIVE RPR/VDRL/Syphilis Nonreactive Rubella status Immune HbSAg Negative Current Obstetrical History Gestational Diabetes No Incompetent Cervix No Infertility No IUGR No Macrosomia No Hypertension/Pre-eclampsia No Placenta Previa/Abruption Yes: placenta previa at 28 wks. Resolved. PTL/PROM No Uterine anomaly Yes: bicornate uterus Oligohydramnios No Polyhydramnios No Multiple gestation No Past Medical History Asthma No Diabetes No Hypertension No Heart disease No Mitral valve prolapse No Neurologic/Seizure disorder/ No Migraines Kidney disease No Liver disease No Varicosities No Clotting disorders/Hx of DVT No Thyroid Dysfunction No Other medical diseases No Psychiatric disorders No Major trauma No Abnormal PAP smear No Sleep apnea No Mammogram in the last 2 years No Social History Marital Status: SINGLE Alleged father Renzo Gomes Hx Smoking No Smoking Status Never smoker Expected Delivery Method: Scheduled Section Review of Systems Constitutional: Denies: Fever, Malaise Eyes: Denies: Blurred vision, Vision Change HEENT: Denies: Head Aches, Visual Changes Cardiovascular: Denies: Chest Pain, Palpitations Respiratory: Denies: Cough, Shortness of Breath, Wheezing Gastrointestinal: Denies: Abdominal Pain, Diarrhea, Nausea, Vomiting Genitourinary: Denies: Dysuria, Hematuria Musculoskeletal: Denies: Joint Pain, Muscle pain Skin: Denies: Lesions, Rash Neurological: Denies: Blurred vision, Focal weakness, Headaches Psychiatric: Denies: Anxiety, Depression Endocrine: Denies: Heat/ Cold Intolerance Hematologic/ Lymphatic: Denies: Easy Bruising, Easy Bleeding Physical Exam General: Alert, Cooperative, No apparent distress HEENT: Atraumatic, Normocephalic. Negative for: Thyromegaly, Lymphadenopathy Cardiovascular: Regular rate Lungs: Normal air movement Abdomen: Soft, Non Tender, Gravid Neurological: Deep Tendon Reflexes 2+/4 and Symmetrical, Neuro grossly intact. Negative for: Clonus CLAIM REP: Normal external genitalia. Negative for: Vulvar lesions Estimated gestational size: Appropriate for gestational size Presentation: Cephalic Assessment/Plan All Active Problems (Last Reviewed 10/01/18 @ 15:57 by Lorelei Grant) Vasa previa (Acute) Contraception management (Acute) Vaginal bleeding during (Acute) Antepartum cervical shortening (Acute) Marginal insertion of umbilical cord (Acute) Placenta previa antepartum (Acute) (Acute) History of delivery, antepartum (Acute) BMI 30.0-30.9,adult (Acute) Supervision of normal (Acute) This is a 23 year-old, at 32 weeks gestational age with vasa previa discussed with MFM- recommend RLTCS at 34-35 weeks due to vasa previa, recommend delivery earlier if develops bleeding or labor or SROM. will admit for monitoring for 1 hour twice daily, twice weekly BPP, and plan RLTCS at 34 weeks. give celestone now. 10/15/18 1612 <Electronically signed by Savana Solis MD> Date Savana Solis MD Cosigner Signature: Date (if applicable) CC: Meño Davis DO; Savana Solis MD Signed CBC-COMPLETE BLOOD CNT Collected: 10/15/2018 Status: F Source: [place] NO DIFF 1:45 PM [facility] REPOSITORY TYPE CODE TESTS RESULT OUT OF RANGE REFERENCE UNITS LAB L100.1000 4.4-11.0 K/mm3 Normal WBC 10.5 LAB L100.1200 4.2-5.4 M/mm3 Low RBC 3.64 LAB L100.1300 12.0-15.0 g/dl Low HGB 11.3 LAB L100.1400 37-47 % Low HCT 34.4 LAB L100.1500 81-99 fL Normal MCV 94.5 LAB L100.1600 27.0-32.0 pg Normal MCH 31.0 LAB L100.1700 32-36 g/gl Normal MCHC 32.8 LAB L100.1810 11.6-14.6 % Normal RDW CV 12.8 LAB L100.1820 35.1-43.9 fl High RDW SD 44.3 LAB L100.1900 150-450 K/mm3 Normal PLT 281 LAB L100.2000 6.2-12.0 fl Normal MPV 8.4 Performed By: #### L100.0500 #### [facility] [address] [place], [address] GROUP B STREP DNA Collected: 10/15/2018 Status: F Source: [place] BY PCR 9:55 AM [facility] REPOSITORY Order Comment: Source: Vaginal-Rectal TYPE CODE TESTS RESULT OUT OF RANGE REFERENCE UNITS LAB L8200.0100 Negative Normal GBS TEST Negative RESULT Performed By: #### L8200.0000 #### [facility] [address] [place], [address] TYPE AND SCREEN Collected: 10/15/2018 Status: F Source: [place] 9:40 AM [facility] REPOSITORY Order Comment: Reason for Type AND Screen/Red Cells: TYPE CODE TESTS RESULT OUT OF RANGE REFERENCE UNITS LAB B10.0800 A Normal BLOOD TYPE GEL POSITIVE LAB B100.4000 Normal Antibody NEGATIVE Screen Performed By: #### B101.7450 #### [facility] [address] [place], [address] BIOPHYSICAL PROFILE Observed: 10/15/2018 Status: F Source: [place] 8:53 AM [facility] REPOSITORY [facility] Imaging Services [address] [place] [address] Biophysical Profile MR#: [id number] Acct: [id number] Name: DIANA RIVAS Kirk Rep #: [id number] : 1995 F 23 From: Karthikeyan Kruse MD PCP: Meño Davis DO Status: ADM IN Study: Biophysical Profile Date of Exam: 10/15/18 Exam# [id number] Ordering Dr: Savana Solis MD STUDY: OBSTETRICAL ULTRASOUND - BIOPHYSICAL PROFILE REASON FOR EXAM: Female, 23 years old. well-being. LMP: March 05, 2018. PRIOR ULTRASOUND: Comparison is made with prior study dated September 11, 2018. TECHNIQUE: Transabdominal TECHNICAL QUALITY: Adequate. FINDINGS: There is a single intrauterine fetus. The fetus is in a cephalic presentation. There is demonstrated cardiac activity with a heart rate of 147 bpm. There is a normal amniotic fluid volume. The largest amniotic fluid pocket measures 7.2 cm x 9.7 cm. The amniotic fluid index (ALTAF) is 14 cm. The placenta is anterior in location and is not low lying. There are Grade 2 placental changes. Gender: Male BIOPHYSICAL PROFILE: Breathing Movements (FBM): 2 Gross Body Movements (GBM): 2 Tone (FT): 2 Amniotic Fluid Volume (AFV): 2 TOTAL SCORE: US/Biophysical Profile IMPRESSION: Normal biophysical profile of 06/13. Electronically Signed: Karthikeyan Kruse MD at 11:22 EST Tel [phone], Service support , CC: Meño Davis DO; Savana Solis MD Field Crop Grower: Signed Observed: 10/15/2018 Status: F Source: [place] CULTURE, GROUP B 12:00 AM [facility] STREPTOCOCCUS REPOSITORY MAHENDRA Culture Group B Beta Streptococcus is not isolated. Performed By: #### M100.1800 #### [facility] [address] [place], [address] PROGRESS NOTE Observed: 10/12/2018 Status: COMPLETED Source: [facility] 11:15 AM [facility] DOS: 10/12/2018 COMANAGEMENT PROGRESS NOTE CHIEF COMPLAINT: vasa previa HISTORY OF PRESENT ILLNESS: Diana is a 23 y.o. female at 31w4d who [facility]. She has a vasa previa and short cervix. She has been compliant with her vaginal prometrium. On ultrasound today, her cervical length is 3.5 cm without evidence of funneling or dynamic changes. She had cramping over the weekend and was ruled out for labor. No issues since that time. Denies vaginal bleeding or leaking fluid. She reports regular movement. She declined admission to the hospital in [place], but agrees to hospitalization in [place]. Dr. Solis is aware and is comfortable. REVIEW OF SYSTEMS: Review of Systems Constitutional: Negative for chills and fever. Eyes: Negative for blurred vision. Respiratory: Negative for shortness of breath. Cardiovascular: Negative for chest pain. Gastrointestinal: Negative for abdominal pain, constipation, diarrhea, nausea and vomiting. Genitourinary: Negative for dysuria. Neurological: Negative for dizziness, tingling, weakness and headaches. Psychiatric/Behavioral: Negative for depression. PHYSICAL EXAM: VITAL SIGNS: BP 122/68 Ht 175.3 cm Wt (!) 103.7 kg (228 lb 9.6 oz) LMP 03/05/2018 BMI 33.74 kg/m Physical Exam Constitutional: She is oriented to person, place, and time and well-developed, well-nourished, and in no distress. No distress. Pulmonary/Chest: Effort normal. No respiratory distress. Abdominal: Soft. She exhibits no distension. There is no tenderness. There is no rebound and no guarding. Musculoskeletal: She exhibits no edema or tenderness. Neurological: She is alert and oriented to person, place, and time. Skin: Skin is warm and dry. She is not diaphoretic. Psychiatric: Mood, memory, affect and judgment normal. Nursing note and vitals reviewed. IMAGING: LABS: Office Visit on 10/12/2018 Component Date Value Ref Range Status POCT Protein, Urine 10/12/2018 Negative Negative - Trace mg/dl Final POCT Blood, Urine 10/12/2018 Negative Negative Final POCT Ketones, Urine 10/12/2018 Negative Negative mg/dl Final POCT Glucose, Urine 10/12/2018 Negative Negative mg/dl Final IMPRESSION/PLAN: 23 y.o. at 31w4d with Active Non-Hospital Problems Diagnosis Date Noted Vasa previa, not applicable or unspecified fetus 10/03/2018 Patient elects for admission at 32 weeks with NICU consult (had consult with prior admission 09/11/18). Recommend rescue BMZ course on admission. Planned delivery between 34 - 37 weeks (likely closer to 34 weeks given short cervix, history of bleeding). While hospitalized, recommend twice weekly BPPs and one hour of external monitoring twice a day and with symptoms to evaluate for decelerations. If recurrent decelerations exists, recommend delivery at that time. Bicornuate uterus affecting , antepartum 08/27/2018 Discussed increased risk for delivery, PPROM, delivery due to malpresentation. Short cervix affecting 08/27/2018 On vaginal progesterone 200mcg qHS. H/O section complicating 08/27/2018 Repeat delivery recommended due to concern for vasa previa. Placenta previa without hemorrhage, antepartum 08/27/2018 Placenta previa resolved. Concern for vasa previa. No evidence of an accreta at this time. Supervision of other high risk , antepartum 08/27/2018 Co-management PLAN OF CARE MD/OB APPOINTMENTS Genetic screening: How often should patient be evaluated? weekly until delivery Work restrictions: pelvic rest, no exercise, no heavy lifting EVALUATION surveillance: twice weekly testing Ultrasound: EFW and placenta evaluation every 4 weeks DELIVERY PLAN Hospital: [place] C/S at 34 weeks GBS culture: Contraception: : Follow up as clinically indicated as she will be hospitalized starting in three days. Eduardo Menjivar MD PROCEDURE Observed: 10/08/2018 Status: COMPLETED Source: [place] 1:54 PM CLINIC OTHER CAMPUS REPOSITORY HNO ID: [id number] Author: Dulce Mcmanus Service: Nursing Author Type: Physician Type: Procedures Filed: 10/08/2018 3:13 PM Note Text: OBSTETRICS NST SUMMARY SERVICE DATE: October 08, 2018 The patient is a 23 year old female, , who is at 31w0d with an SAI of 12/10/2018, by Patient Reported dating method. NST OBJECTIVE FINDINGS PER NURSE: Start Time: 1315 (10/08/18 1345 : Mary Foster RN) Complete Time: Indications: (ordered) (10/08/18 1345 : Mary Foster RN) Patient Reason For: NST Explanation: Acoustic Stimulator: Interventions: MONITORING/ASSESSMENT: Baseline: 140 bpm (10/08/18 1345 : Mary Foster RN) Variability: Moderate (6-25 bpm) (10/08/18 1345 : Mary Foster RN) Accelerations: Present (10/08/18 1345 : Mary Foster RN) Decelerations: Decelerations: None (10/08/18 1345 : Mary Foster RN) Contractions: Not present (10/08/18 1345 : Mary Foster RN) Frequency: Above information forwarded to dr. mcmanus (10/08/18 1345 : Mary Foster RN) for final review and interpretation. SIGNATURE: Mary Foster RN PATIENT NAME: Diana Rivas DATE: October 08, 2018 TIME: 1:54 PM OBSTETRICS MONITORING ASSESSMENT NST Interpretation: reactive FHR Category: 1 (10/08/18 1345 : Mary (Rn) DIPTI Foster) Disposition: home PROVIDER INTERPRETATION: Reactive by criteria SIGNATURE: Dulce Mcmanus MD PATIENT NAME: Diana Rivas DATE: October 08, 2018 TIME: 3:13 PM PROGRESS Observed: 10/08/2018 Status: COMPLETED Source: [place] 1:44 PM [facility]IN[facility] OTHER CAMPUS REPOSITORY HNO ID: [id number] Author: Rina Schmidt DO Service: Obstetrics Author Type: Resident Type: Progress Notes Filed: 10/08/2018 2:45 PM Note Text: Attestation signed by Dulce Mcmanus at 10/08/2018 3:33 PM Attending Note I evaluated the patient and personally participated in the mckeon components. I agree with the resident's findings and plan as documented and have discussed the case and management of the patient's care with the resident. Signature: Dulce Mcmanus MD Date: 10/08/2018 Time: 3:33 PM OBSTETRICS OB ED PROGRESS NOTE SERVICE DATE: October 08, 2018 SERVICE TIME: 1:44 PM Subjective Patient's stated reason for arrival: leaking fluid CHIEF COMPLAINT: Leakage of fluid HISTORY OF THE PRESENT ILLNESS: The patient is a 23 year old female, , who is at 31w0d with an SAI of 12/10/2018, by Patient Reported dating method. Patient reports leakage of fluids. She reports scant amount of fluid in her underwear. She reports fluid was clear. She denies vaginal bleeding. Reports rare contractions. Reports contractions were more like cramping. Endorses movement. PAST MEDICAL HISTORY Diagnosis Date - Bicornate uterus - Depression anxiety - GERD (gastroesophageal reflux disease) - Menarche age 9 - PMH - PAST MEDICAL HISTORY OF 09/07/2010 Normal Color Vision - Vitamin D deficiency PAST SURGICAL HISTORY Procedure Laterality Date - DELIVERY ONLY 01/14/2010 , low transverse, daughter Steph - TOOTH EXTRACTION FAMILY HISTORY Problem Relation Age of Onset - Hypertension Maternal Grandmother - Diabetes Maternal Grandmother diet controlled - Cancer Maternal Grandmother Pancreatic/Liver/Uterine - Thyroid Maternal Grandmother - Heart Other Acute GA at age 35 - Thyroid Maternal Aunt Obstetric History T1 L1 SAB0 TAB0 Ectopic0 Multiple0 Live Births0 REVIEW OF SYSTEMS: The remainder of the review of systems is negative. Objective LAST VITALS: Pulse BP Resp O2 Sat Temp 101 128/76 18 36.8 ?C (98.2 ?F) Pain Score Trend (last 4 values) 10/08/18 1245 10/08/18 1345 Pain Score: 0/10 0/10 HT/WT/BMI: Height Weight BMI 175.3 cm (5' 9) 103 kg (227 lb) 33.52 PHYSICAL EXAM: General: WD, WN, comfortable Abdomen: soft, nontender, no masses Uterus: soft, NT Extremities: no edema SSE: copious, white homogenous discharge, no leakage with valsalva, no ferning, nitrizine negative CERVICAL EXAM: Dilation: Closed (10/08/18 1251 : Rina (Nancy Schmidt DO) cm Station: Effacement: % Presentation: MONITORING/ASSESSMENT: testing reassuring - see additional documentation FHR 140/mod/+accels/-decels [place] quiet Category I FHR- reactive LABS Diagnostic tests reviewed for today's visit: Most recent labs Assessment/Plan 23 year old EGA:31w0d. With leakage of fluid Active Hospital Problems Diagnosis Date Noted - Vasa previa, not applicable or unspecified fetus 10/08/2018 Overview: ? Patient elects for admission at 32 weeks with NICU consult (had consult with prior admission 09/11/18). ? Recommend rescue BMZ course on admission. ? Planned delivery between 34 - 37 weeks (likely closer to 34 weeks given short cervix, history of bleeding). - Vaginal discharge during 10/08/2018 -Rule out for PROM at [facility] OB ED on 10/08/18 -BV/Trich negative -SSE negative for pooling, nitrizine, ferning -Udip negative - Uterine contractions during 10/08/2018 -Rare contraction -Visually closed -[place] quiet Category I FHR- reactive Patient given labor precautions and CK reminders Patient will follow up with [facility] for an Ultrasound and consult on or Monday MILTON Mcmanus SIGNATURE: Rina Schmidt DO PATIENT NAME: Diana Rivas DATE: October 08, 2018 TIME: 1:45 PM PAGER/CONTACT #: [id number] RAPID TRICHOMONAS AG Collected: 10/08/2018 Status: F Source: [facility] 12:45 PM [facility] REPOSITORY TYPE CODE TESTS RESULT OUT OF REFERENCE UNITS RANGE LAB RAPTR(LOIN C) Rapid Trichomonas Ag see below Result Comment: No Trichomonas antigen present or the antigen level is below detection limit of the assay (2500 organisms/mL). Performed By: #### RAPTR #### [place] [id number] RAPID BACT.VAGINOSIS Collected: 10/08/2018 Status: F Source: [facility] 12:45 [facility] REPOSITORY TYPE CODE TESTS RESULT OUT OF RANGE REFERENCE UNITS LAB RAPBV(LOINC ) Rapid see below Bact.Vaginos is Result Comment: Negative for the presence of bacterial vaginosis. Performed By: #### RAPBV #### [place] [id number] PROGRESS NOTE Observed: 10/03/2018 Status: COMPLETED Source: [place] 11:00 AM [facility] REPOSITORY DOS: 10/03/2018 [facility]- MEDICINE FOLLOW-UP CONSULT following recent admission 09/11/18. Referring/Requesting Provider: Savana Solis MD PCP: [facility], MD Queenie CHIEF COMPLAINT: placenta previa, history of bleeding, now resolved. HISTORY OF PRESENT ILLNESS: Diana is a 23 y.o. female at 30w2d who reports no bleeding since discharge from [facility] on 09/14/18. During that admission she had an MRI to evaluate for placenta accreta. MRI was not suggestive of an accreta. Placenta previa was present. She was previously diagnosed with a short cervix and was started on vaginal progesterone. She does report 1-2 CTXs per hour since gi. She notices them more with increased activity. 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 She had a eight year-old daughter at home. OB History Para Term AB Living 2 1 1 1 SAB TAB Ectopic Multiple Live Births 1 # Outcome Date GA Lbr Noé/2nd Weight Sex Delivery Anes PTL Lv 2 Current 1 Term 01/14/10 39w0d 3.544 kg F CS-Unspec Spinal N MICHELLE Comments: Breech Past Medical History: Diagnosis Date Acid reflux Anxiety Depression Gastrointestinal complaints, nonspecific IBS Past Surgical History: Procedure Laterality Date SECTION WISDOM TOOTH EXTRACTION PERTINENT FAMILY HISTORY: Family History Problem Relation Age of Onset No known problems Mother No known problems Father No known problems Brother Cancer Maternal Grandmother Liver Diabetes Mellitus II Maternal Grandmother Cirrhosis Maternal Grandmother High Blood Pressure Paternal Grandfather High Blood Pressure Maternal Aunt Thyroid Disease Maternal Aunt MEDS: Outpatient Medications Marked as Taking for the 10/03/18 encounter (Office Visit) with Theresa Chavarria, Medication Sig Dispense Refill sertraline (ZOLOFT) 50 MG tablet Take by mouth daily Famotidine (PEPCID) 40 MG tablet Take 40 mg by mouth daily Vit w/Om-Aejvueyee-UD (PNV PO) Take 1 Tab by mouth daily progesterone (PROMETRIUM) 200 MG 200mg per vagina qHS 30 Each 5 ALLERGY: No Known Allergies REVIEW OF SYSTEMS: Pertinent items are noted in HPI. PHYSICAL EXAM: VITAL SIGNS: BP 122/74 Ht 175.3 cm Wt (!) 102.4 kg (225 lb 11.2 oz) LMP 03/05/2018 BMI 33.31 kg/m General Appearance: Alert, appropriate appearance for age. No acute distress and HEENT Exam: Grossly normal. IMAGING: Vasa previa - see report. SUMMARY OF CONSULT:Vasa previa occurs when unprotected umbilical vessels cover the cervix. Pregnancies with resolved placenta previa are at increased risk of developing vasa previa. This occurs in about 11/2499 deliveries and the mortality rate is estimated to be < 10%. The most significant complication includes hemorrhage and . Goals of management include prolonging to reduce the risk of prematurity while avoiding labor or rupture of membranes that can cause . Recommended management per The Society of Maternal Medicine includes considering corticosteroids 28-32 weeks; consider prophylactic hospitalization based on presence or absence of symptoms ( contractions, vaginal bleeding), history of spontaneous , logistics (distance from hospital), balancing of the risks that are associated with bedrest and activity restriction; delivery should occur at a center capable of immediate transfusion. delivery is recommended between 34-37 weeks. She declines inpatient admission at this time. IMPRESSION: Diana is a 23 y.o. at 30w2d with Active Non-Hospital Problems Diagnosis Date Noted Vasa previa, not applicable or unspecified fetus 10/03/2018 Patient elects for admission at 32 weeks with NICU consult (had consult with prior admission 09/11/18). Recommend rescue BMZ course on admission. Planned delivery between 34 - 37 weeks (likely closer to 34 weeks given short cervix, history of bleeding). Bicornuate uterus affecting , antepartum 08/27/2018 Discussed increased risk for delivery, PPROM, delivery due to malpresentation. Short cervix affecting 08/27/2018 On vaginal progesterone 200mcg qHS. H/O section complicating 08/27/2018 Repeat delivery recommended due to concern for vasa previa. Placenta previa without hemorrhage, antepartum 08/27/2018 Placenta previa resolved. Concern for vasa previa. No evidence of an accreta at this time. Supervision of other high risk , antepartum 08/27/2018 Co-management PLAN OF CARE MD/OB APPOINTMENTS Genetic screening: How often should patient be evaluated? weekly until delivery Work restrictions: pelvic rest, no exercise, no heavy lifting EVALUATION surveillance: twice weekly testing Ultrasound: EFW and placenta evaluation every 4 weeks DELIVERY PLAN Hospital: [facility] C/S at 34 weeks GBS culture: Contraception: : Follow up Monday to evaluate cervical length and suspected vasa previa. If she has any contractions or vaginal bleeding, she needs to present to the closest hospital immediately. The total patient time of the visit was 25 minutes, of which was greater than 50% of the time was spent counseling and coordinating care. BIOINFORMATICS COMPUTER SCIENTIST OFFICE VISIT Observed: 10/01/2018 Status: F Source: [place] RE[place] 4:24 PM [facility] REPOSITORY [facility] [place] [address] [place] [address] OFFICE VISIT Date of Service: 10/01/18 MR#: [id number] Acct: [id number] Name: DIANA RIVAS Rep #: [id number] : 1995 Provider: LILLIE Moya Age/Sex: 23/F [place] [facility] [place]: Signed Intake Vital Signs10/01/18 Height 5 ft 9 in 10/01/18 Weight: 227 lb 2 oz 10/01/18 Body Mass Index (BMI) 33.5 10/01/18 Blood Pressure 122/78 H Intake Visit Reasons: est ob 30 weeks River Expedition Guide Required: No Is patient in pain?: No Allergies No Known Allergies Allergy (Verified 10/01/18 15:57) Medications vit 123-iron 28 mg-folic acid 800 zot-ooczy-3t 235 mg capsule 1 cap PO QDAY 05/07/18 [History Confirmed 10/01/18] sertraline 50 mg tablet 50 mg PO QDAY #30 tab 05/25/18 [Rx Confirmed 10/01/18] Famotidine 40 mg PO DAILY 09/08/18 [History Confirmed 10/01/18] Progesterone,Micronized [Prometrium] 200 mg VAGINAL DAILY 09/11/18 [History Confirmed 10/01/18] Last Menstral Period: 03/05/18 Zika: Zika virus screening: Negative : No PFSH PFSH Medical History Acid reflux (Acute) Anxiety (Acute) Bicornate uterus (Acute) Surgical History H/O section (Acute 2009) Social History adopted: No household members: children housing: apartment number of children: 1 current occupational status: employed current occupation: [employer] pets and animals: Yes pets and animals: cat(s) Smoking Status: Never smoker second hand exposure: No alcohol intake: current alcohol intake frequency: other substance use type: does not use what type of physical activity do you participate in: none seatbelt use: always do you feel safe at home: Yes additional social history: Boyfriend- [facility] Pregancy History 2 Elective abortions Hx Para 1 Spontaneous abortions Past Pregnancies Del. DateName GA/Weeks Outcome Route Bth WeighInfant GeLabor LgtAnesthesiDel LocatProvider FOB t n h a n Delivery Date: 03/16/10 On 05/07/18 @ 14:55 Rina cShuster Bi-cornate uterus HPI est ob 30 weeks: Details: DIANA RIVAS is a 23 year old who presents for routine OB visit. OB Visit SAI Calculator Estimated Delivery Date 12/10/18 Based on LMP (certain) 03/05/18 Current WG 30w 0d Number 1 Expected Delivery Route/Plan considering , depends on previa Specific Issue/Plans flu vaccine: given minichart given: given tdap vaccine: given rhogam: NA LARC form signed: declines labor support person: Renzo pain management: epidural cut cord/dad catch: cord : yes PP control planned: nexplanon special requests: Initial Weight: 227 lb Date Weight BP Urine PFHR FuHt Pres MCTX DilatioFetal SVisit NProvideComment rot ov n t ote r s EGA Ef Gluco faced se 05/07/1227 lb 126/81 8 (+0 oz) 9w 0d Visit Notes Visit Date: 10/01/18 No VB. Some dysuria. Good FM Farrah Moya NP-C on 10/01/18 Visit Date: 09/17/18 No VB since at [place] last week. No longer previa or acreta. Good FM Farrah Moya NP-C on 09/17/18 Visit Date: 09/03/18 no vb occasional cramping. repeat us ordered. good fm cbc gct. flu and tdap next visit Savana Solis MD on 09/03/18 Visit Date: 08/06/18 saw MFM. shortened cervical length and still a previa, no acreata. started on progesterone cream Savana Solis MD on 08/06/18 Visit Date: 07/02/18 no vb cramping scheduled anatomy scan, declines afp screening. Savana Solis MD on 07/02/18 Visit Date: 06/04/18 Nausea better with phenergan. Seldom vomits. Doesn't feel like eating much. No VB, LOF. Confirm FHT with brief US NAOMY Bhatia on 06/04/18 Visit Date: 05/07/18 No visit notes to display ACOG First Trimester First Trimester: Desire for , Alcohol, Tobacco Cessation, Illicit/Recreational Drug/Substance Use, Intimate Partner Violence, Barriers to care, Unstable Housing, Communication Barriers, Environmental/Work Hazards, Anticipated Course of Care, Toxoplasmosis Precations, Use of Any medications, Sexual activity, Exercise, Dental Care, Sauna/Hot tub use, Seat Belt use, Childbirth classes/Hospital facilities, , Travel, Indications for US and Screening for Aneuploidy Diagnostics Diagnostics Labs Blood Type A POSITIVE 05/08/18 Antibody Screen NEGATIVE 05/08/18 Hct 34.9 % (37-47) L 09/11/18 Hgb 11.4 g/dl (12.0-15.0) L 09/11/18 Obstetrics Ultrasound 09/11/18 Rubella IgG Antibody 43.3 IU/mL 05/08/18 RPR NONREACTIVE (NONREACTIVE) 05/08/18 Hep Bs Antigen Negative (Negative) 05/08/18 Chlam trachomat DNA PCR Negative (Negative) 05/07/18 N.gonorrhoeae DNA (PCR) Negative (Negative) 05/07/18 Glucose 1 Hr 50 gm 133 mg/dL (70-140) 09/03/18 Rhogam given: No 09/08/18 Details: HIV: Urine Culture: Sequential Screen: NIPT Screen: Results [id number] Office Urine Glucose Negative Last Edit by Lorelei Grant on 10/01/18 15:56 Office Urine Protein Negative Last Edit by Lorelei Grant on 10/01/18 15:56 BMSUA Office Urine Color STRAW Last Edit by Lorelei Grant on 10/01/18 16:20 Office Urine Clarity Clear Last Edit by Lorelei Grant on 10/01/18 16:20 Assessment AND Plan Problems 1. Encounter for supervision of other normal in second trimester Z34.82 PRR SAI 12/10/18 boy Adolfoaubree Choi Renzo 2. BMI 30.0-30.9,adult Z68.30 ordered 1 tm glucola 3. History of delivery, antepartum O34.219 considering , education given 4. 30 weeks gestation of Z3A.30 declines genetic and NTD screening. anatomy scan reviewed 5. Placenta previa antepartum O44.00 Resolved/Anterior previa, no accreata, previous C/S. MFM Consult US 6. Marginal insertion of umbilical cord growth US every 4 weeks 7. Antepartum cervical shortening O26.879 given vaginal progesterone 8. Vaginal bleeding during O46.90 9. Encounter for other contraceptive management Z30.8 Nexplanon at 6 wk pp visit-do insurance auth after 11/06/18 Plan Orders placed: UA dip X 10 neg. Will send culture Plans nexplanon at 6 week visit Sees MFM q4 wk and has appt in 3 days Reviewed of labor precautions, movement/kick counts ACOG trimester education reviewed and updated See problem list details for updated plan of care Gestational age appropriate handout given RTO: 2 weeks Orders Orders: Coding Level of Care Code OB Routine Diagnoses Encounter for supervision of other normal in second trimester Z34.82 Normal : other normal Trimester: second trimester BMI 30.0-30.9,adult Z68.30 History of delivery, antepartum O34.219 30 weeks gestation of Z3A.30 Weeks of gestation: 30 weeks Placenta previa antepartum O44.00 Marginal insertion of umbilical cord Antepartum cervical shortening O26.879 Vaginal bleeding during O46.90 Encounter for other contraceptive management Z30.8 Contraceptive encounter type: other encounter for contraceptive management 10/01/18 1624 <Electronically signed by Farrah MORALEZ> Date Farrah MORALEZ Cosigner Signature: Date (if applicable) CC: Observed: 10/01/2018 Status: F Source: [place] CULTURE, URINE 12:00 AM [facility] REPOSIT[facility] Urine Culture Below infection level. ORGANISM 1: Mixed Gram Positive Organisms [place] Count 1000-10,000 Performed By: #### M100.0650 #### [place] [facility] [address] [place], [address] BIOINFORMATICS COMPUTER SCIENTIST OFFICE VISIT Observed: 09/17/2018 Status: F Source: [place] REPORT 4:38 PM [facility]IT[facility] [address] [place] [place] [address] OFFICE VISIT Date of Service: 09/17/18 MR#: [id number] Acct: [id number] Name: DIANA RIVAS Rep #: [id number] : 1995 Provider: LILLIE Moya Age/Sex: 23/F [place] [facility] [place]: Signed Intake Vital Signs09/17/18 Height 5 ft 9 in 09/17/18 Weight: 225 lb 6 oz 09/17/18 Body Mass Index (BMI) 33.3 09/17/18 Blood Pressure 132/80 H Intake Visit Reasons: est ob 28 weeks Chief Complaint: est ob [place] Expedition Guide Required: No Is patient in pain?: No Allergies No Known Allergies Allergy (Verified 09/17/18 15:05) Medications vit 123-iron 28 mg-folic acid 800 [id number] 235 mg capsule 1 cap PO QDAY 05/07/18 [History Confirmed 09/11/18] sertraline 50 mg tablet 50 mg PO QDAY #30 tab 05/25/18 [Rx Confirmed 09/17/18] Famotidine 40 mg PO DAILY 09/08/18 [History Confirmed 09/17/18] Progesterone,Micronized [Prometrium] 200 mg VAGINAL DAILY 09/11/18 [History Confirmed 09/17/18] Last Menstral Period: 03/05/18 Zika: Zika virus screening: Negative : No PFSH PFSH Medical History Acid reflux (Acute) Anxiety (Acute) Bicornate uterus (Acute) Surgical History H/O section (Acute 2009) Social History adopted: No household members: children housing: apartment number of children: 1 current occupational status: employed current occupation: [employer] pets and animals: Yes pets and animals: cat(s) Smoking Status: Never smoker second hand exposure: No alcohol intake: current alcohol intake frequency: other substance use type: does not use what type of physical activity do you participate in: none seatbelt use: always do you feel safe at home: Yes additional social history: Boyfriend- Renzo- Functional Tester [facility] Pregancy History 2 Elective abortions Hx Para 1 Spontaneous abortions Past Pregnancies Del. DateName GA/Weeks Outcome Route Bth WeighInfant GeLabor LgtAnesthesiDel LocatProvider FOB t n h a n Delivery Date: 03/16/10 On 05/07/18 @ 14:55 Rina Schuster Bi-cornate uterus HPI est ob 28 weeks: Details: DIANA RIVAS is a 23 year old who presents for routine OB visit. OB Visit SAI Calculator Estimated Delivery Date 12/10/18 Based on LMP (certain) 03/05/18 Current WG 28w 0d Number 1 Expected Delivery Route/Plan considering , depends on previa Specific Issue/Plans flu vaccine: given minichart given: given tdap vaccine: given rhogam: NA LARC form signed: labor support person: Renzo pain management: cut cord/dad catch: : PP control planned: special requests: Initial Weight: 227 lb Date Weight BP Urine PrFHR FuHt Pres MoCTX DilationFetal StVisit NoProviderComments E ot v te GA G Effac lucose ed Visit Notes Visit Date: 09/17/18 No VB since at [facility] last week. No longer previa or acreta. Good FM NAOMY Bhatia on 09/17/18 Visit Date: 09/03/18 no vb occasional cramping. repeat us ordered. good fm cbc gct. flu and tdap next visit Savana Solis MD on 09/03/18 Visit Date: 08/06/18 saw MFM. shortened cervical length and still a previa, no acreata. started on progesterone cream Savana Solis MD on 08/06/18 Visit Date: 07/02/18 no vb cramping scheduled anatomy scan, declines afp screening. Savana Solis MD on 07/02/18 Visit Date: 06/04/18 Nausea better with phenergan. Seldom vomits. Doesn't feel like eating much. No VB, LOF. Confirm FHT with brief US NAOMY Bhatia on 06/04/18 Visit Date: 05/07/18 No visit notes to display ACOG First Trimester First Trimester: Desire for , Alcohol, Tobacco Cessation, Illicit/Recreational Drug/Substance Use, Intimate Partner Violence, Barriers to care, Unstable Housing, Communication Barriers, Environmental/Work Hazards, Anticipated Course of Care, Toxoplasmosis Precations, Use of Any medications, Sexual activity, Exercise, Dental Care, Sauna/Hot tub use, Seat Belt use, Childbirth classes/Hospital facilities, , Travel, Indications for US and Screening for Aneuploidy Diagnostics Diagnostics Labs Blood Type A POSITIVE 05/08/18 Antibody Screen NEGATIVE 05/08/18 Hct 34.9 % (37-47) L 09/11/18 Hgb 11.4 g/dl (12.0-15.0) L 09/11/18 Pap Smear Negative 02/07/18 Obstetrics Ultrasound 09/11/18 Rubella IgG Antibody 43.3 IU/mL 05/08/18 RPR NONREACTIVE (NONREACTIVE) 05/08/18 Hep Bs Antigen Negative (Negative) 05/08/18 Chlam trachomat DNA PCR Negative (Negative) 05/07/18 N.gonorrhoeae DNA (PCR) Negative (Negative) 05/07/18 Glucose 1 Hr 50 gm 133 mg/dL (70-140) 09/03/18 Rhogam given: No 09/08/18 Details: HIV: Urine Culture: Sequential Screen: NIPT Screen: Results [id number] Office Urine Glucose Negative Last Edit by Joyce Castro on 09/17/18 15:29 Office Urine Protein Negative Last Edit by Joyce Castro on 09/17/18 15:29 Immunizations Boostrix Tdap Performing Provider: NAOMY Bhatia Administered by: Joyce Castro on 09/17/18 15:11 Dose Route Admin Location Lot Number Expiration Date [facility] Instructor Industrial Design 0.5 mL IM Left Arm (SQ) [id number] 09/24/24 00693-098-75 [employer] VIS Given Date VIS Publication Date 09/17/18 12/30/14 Eligibility Eligibility Date Assessment AND Plan Problems 1. Encounter for supervision of other normal in second trimester Z34.82 PRR SAI 2/4/19 boy Adolfo Choi Renzo 2. BMI 30.0-30.9,adult Z68.30 ordered 1 tm glucola 3. History of delivery, antepartum O34.219 considering , education given 4. 28 weeks gestation of Z3A.28 declines genetic and NTD screening. anatomy scan reviewed 5. Marginal insertion of umbilical cord growth US every 4 weeks 6. Antepartum cervical shortening O26.879 given vaginal progesterone Plan Orders placed: tdap Reviewed of labor precautions, movement/kick counts ACOG trimester education reviewed and updated See problem list details for updated plan of care Gestational age appropriate handout given RTO: 2 weeks Orders Orders: Medications Discontinued: Boostrix Tdap (diphth,pertus(acell),tetanus) Discontinue0.5 mL IM ONCE 1 mL 0RF NS Z23 d Reason: Office Medication has been Documented as given Coding Level of Care Code OB Routine Diagnoses Encounter for supervision of other normal in second trimester Z34.82 Normal : other normal Trimester: second trimester BMI 30.0-30.9,adult Z68.30 History of delivery, antepartum O34.219 28 weeks gestation of Z3A.28 Weeks of gestation: 28 weeks Marginal insertion of umbilical cord Antepartum cervical shortening O26.879 09/17/18 1638 <Electronically signed by Farrah MORALEZ> Date Farrah MORALEZ Cosigner Signature: Date (if applicable) CC: ANNELIESE Observed: 09/14/2018 Status: COMPLETED Source: [place] 2:14 PM [facility] OTHER [facility] REPOSITORY HNO ID: [id number] Author: Ana Still Service: Obstetrics Author Type: Resident Type: Discharge Summaries Filed: 09/14/2018 5:19 PM Note Text: Attestation signed by Stanislaw Gardiner at 09/16/2018 1:49 PM MFM Attending Note I saw and evaluated the patient. I agree with the resident's findings and plan of care as documented below. Stanislaw Gardiner DO, MPH, FACOG 09/16/2018 1:49 PM DISCHARGE SUMMARY OBSTETRICS PATIENT NAME: Diana Rivas ADMISSION DATE: 09/11/2018 DISCHARGE DATE: 09/14/2018 Attending Physician: No att. providers found Code Status: Not on file Reason for Hospitalization: Intrauterine . Active Problems: Anxiety Marginal insertion of umbilical cord affecting management of mother Vaginal bleeding during Resolved Problems: Placenta previa COMPLICATIONS: None PROCEDURES/SURGERY DURING HOSPITALIZATION: None Hospital Course: 23 year old presented at 27 weeks 1 day with vaginal bleeding in the setting of placenta previa. This was complicated by an anterior previa, prior section, shortened cervical length on vaginal progesterone, and anxiety. She was given betamethasone on 09/11 and 09/12. An ultrasound was repeated which showed that the placenta previa had resolved, but there was a thin blurred area of the uterus next to the bladder that was concerning for a potential accreta. She went for an MRI to better characterize this interface and those results are pending at the time of discharge. She had no bleeding at discharge. Transitions of Care Critical Issues: IMAGING FOLLOW-UP: MRI LABS AND PROCEDURES PENDING AT DISCHARGE: No pending results. Consulting Teams During Hospitalization: None Patient Condition @ Discharge: Stable Discharge Disposition: Home/Self Care PERTINENT FINDINGS: Final hemoglobin: Recent Labs 09/11/181914 HB 12.2 Final hematocrit: Recent Labs 11/06/18 1915 HCT 36.1 DIET: Resume pre-hospital diet ACTIVITY: Resume pre-hospital activity WOUND/SURGICAL SITE CARE: None Discharge Medications: Discharge Medication List as of 09/14/2018 2:26 PM CONTINUE these medications which have NOT CHANGED vit/iron fum/folic ac ( 1 + 1 ORAL) Take by mouth. Historical Med, Long-term famotidine (PEPCID) 40 mg tablet Take 40 mg by mouth once daily. Historical Med progesterone micronized (PROMETRIUM) 200 mg capsule 200 mg daily at bedtime. Historical Med, Long-term sertraline (ZOLOFT) 50 mg tablet Take 50 mg by mouth once daily. Historical Med STOP taking these medications buPROPion XL (WELLBUTRIN XL) 150 mg 24 hr tablet Comments: Reason for Stopping: Levonorgestrel-Ethinyl Estrad (AVIANE) 0.1mg - 20mcg per tablet Comments: Reason for Stopping: ALLERGIES No Known Allergies Future Appointments: Follow Up Appointments Follow-Up Appointment With: Provider When: In 3 days Patient/Parents to call for appointment?: Scheduled SIGNATURE: Ana Still MD PAGER: [phone] DATE: September 14, 2018 TIME: 5:14 PM MRI PELVIS WITHOUT Observed: 09/14/2018 Status: F Source: [place] CONTRAST 7:47 AM [facility] REPOSITORY Clinical history: Concern for placenta accreta. TECHNIQUE: Multiplanar, multisequence images of the maternal pelvis are obtained without gadolinium enhancement. Results: Uterus: The placenta is anterior and inferior in location. The tip of the placenta is 1.4 cm from the internal cervical os on sagittal images. No significant dark placental bands are seen within the placenta. There is no area of significant disorganized vascularity within the placenta. There is no focal bulging of the uterine contour adjacent to the placenta. There is no tenting of the bladder adjacent to the uterus. Fetus: A single intrauterine fetus is present in vertex presentation. There is no nuchal cord. imaging is limited as the study was performed for placenta accreta. The lungs demonstrate no evidence of mass or cyst. The cardiac aex is left-sided. The liver is right-sided. The gallbladder is present. The stomach is left-sided. The kidneys demonstrate no hydronephrosis. The urinary bladder was distended. The brain ventricles are normal in size. There is a cavum septum pellucidum. The cerebellar vermis is not uplifted are rotated. mecnium outlines the course of the colon. Maternal: Limited spine: There is a mild L5-S1 broadbase disc bulge that does not extend into the inferior recesses of the neural foramina. There is no significant loss of disc space height. There is loss of the L5-S1 high T2 signal nucleus pulposus consistent with disc desiccation. Limited abdomen: The limited views of the maternal kidneys demonstrate no hydronephrosis. IMPRESSION: 1. Placenta previa. 2. No MRI findings concerning for placenta accreta. This does not exclude the diagnosis. 3. The limited images of the fetus demonstrate no abnormalities. 4. Maternal L5-S1 mild broad-based disc bulge. This report has been created using voice recognition software Signed by: Dr. Bishnu Burks at 09/14/2018 13:20 PROGRESS Observed: 09/14/2018 Status: COMPLETED Source: [place] 5:33 AM [facility] REPOSITORY O ID: [id number] Author: Libby Hodge Service: Obstetrics Author Type: Resident Type: Progress Notes Filed: 09/14/2018 6:49 AM Note Text: Attestation signed by Stanislaw Gardiner at 09/14/2018 11:51 AM [facility] Attending Note I saw and evaluated the patient. I agree with the resident's findings and plan of care as documented below. No acute events overnight. Denies VB since . [facility] report pending. Bleeding and activity precautions reviewed. Ok for discharge today. F/U with Dr. Solis Monday and with [facility] as scheduled. All patient questions answered. Stanislaw Gardiner DO, MPH, FACOG 09/14/2018 11:48 AM OBSTETRICS ANTEPARTUM PROGRESS NOTE SERVICE DATE: 09/14/2018 SERVICE TIME: 5:33 AM ASSESSMENT AND PLAN: 23 year old EGA:27w4d admitted for Vaginal bleeding. 1. Vaginal bleeding and resolved placenta previa -Rh positive -First episode of bleeding was 09/11 and her last red bleeding was 2 nights ago -On ultrasound 09/12, the previa was no longer present but there was a subchorionic hemorrhage -Marginal cord insertion and funic presentation also noted -Monitor with pad counts -Discharge with 24-48 hours without red bleeding ? 2. Concern for placenta accreta -U/s 09/12 showed a thin, blurred area next to the bladder -Plan for MRI this AM at 0700 ? 3. Shortened CL -Continue vaginal progesterone ? 4. History of LTCS -Previa was anterior but has resolved ? 5. Anxiety -Continue Zoloft ? 6. Prematurity -S/p BMZ 09/11 and 09/12 -PMG consult -Magnesium if moving towards delivery when <32 weeks ? 7. Monitoring -30 minutes of monitoring daily ? 8. Diet -Regular ? 9. Position -Cephalic ? 10. DVT ppx -SCDs ? Disposition: First episode of bleeding has ceased. Will discharge after 24-48 hours without any red bleeding, likely today. Plan for outpatient MRI to characterize uterus/bladder interface. SUBJECTIVE: No current vaginal bleeding, No current leaking of fluid, No contractions, Good movement, No shortness of breath or chest pain and No calf tenderness OBJECTIVE: LAST VITALS: Pulse BP Resp O2 Sat Temp Pain 87 115/63 18 98 % 36.4 ?C (97.5 ?F) 0/10 PHYSICAL EXAM: General: WD, WN, NAD, comfortable Heart: RR, S1, S2 Lungs: clear to auscultation Abdomen: soft, nontender, gravid Extremities: no edema MONITORING/ASSESSMENT: 150/mod/+accels/neg decels [place]: not haven Cat I FHT, reactive LABS Diagnostic tests reviewed for today's visit: No new labs SIGNATURE: Libby Hodge DO PATIENT NAME: Diana Rivas DATE: September 14, 2018 TIME: 5:33 AM CASE MANAGEM Observed: 09/13/2018 Status: COMPLETED Source: [place] 3:24 PM [facility] REPOSITORY HNO ID: [id number] Author: Melissa Pompa) DIPTI [place] Service: Care Management Author Type: Registered Nurse Type: Care Mgt Progress Note Filed: 09/13/2018 3:26 PM Note Text: CARE MANAGEMENT PROGRESS NOTE SERVICE DATE: 09/13/2018 SERVICE TIME: 3:24 PM LOS: 2 days Transportation: Arranged wheelchair, 09/14/18 6:30 am 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 [facility] Received phone call from RN stating pt is scheduled for MRI placenta at [facility] 09/14/18 7:00 am. No equipment, able to travel by wheelchair. SIGNATURE: Melissa Washington RN PATIENT NAME: Diana Rivas DATE: September 13, 2018 TIME: 3:24 PM PAGER/CONTACT #: [phone] PROGRESS Observed: 09/13/2018 Status: COMPLETED Source: [place] 6:00 AM [facility] REPOSITORY HNO ID: [id number] Author: Ana Still Service: Obstetrics Author Type: Resident Type: Progress Notes Filed: 09/13/2018 6:37 AM Note Text: Attestation signed by Eduardo Nelson at 09/13/2018 9:37 AM Patient seen and examined by me and I agree with the residents assessment and plan with the following additions: If patient stable throughout the day today, likely discharge to home tomorrow. Patient is scheduled for a MRI tomorrow morning at 7 AM at [facility]. Eduardo Menjivar MD OBSTETRICS ANTEPARTUM PROGRESS NOTE SERVICE DATE: 09/13/2018 SERVICE TIME: 0600 ASSESSMENT AND PLAN: 23 year old EGA:27w3d admitted for vaginal bleeding. 1. Vaginal bleeding and resolved placenta previa -Rh positive -First episode of bleeding was 09/11 and her last red bleeding was 2 nights ago -On ultrasound 09/12, the previa was no longer present but there was a subchorionic hemorrhage -Marginal cord insertion and funic presentation also noted -Monitor with pad counts -Discharge with 24-48 hours without red bleeding ? 2. Concern for placenta accreta -U/s 09/12 showed a thin, blurred area next to the bladder -Plan for outpatient MRI 3. Shortened CL -Continue vaginal progesterone ? 4. History of LTCS -Previa was anterior but has resolved ? 5. Anxiety -Continue Zoloft ? 6. Prematurity -S/p BMZ 09/11 and 09/12 -PMG consult -Magnesium if moving towards delivery when <32 weeks ? 7. Monitoring -30 minutes of monitoring daily ? 8. Diet -Regular ? 9. Position -Cephalic ? 10. DVT ppx -SCDs ? Disposition: First episode of bleeding has ceased. Will discharge after 24-48 hours without any red bleeding, likely today. Plan for outpatient MRI to characterize uterus/bladder interface. SUBJECTIVE: No current vaginal bleeding, No current leaking of fluid, No contractions, Good movement, No shortness of breath or chest pain and No calf tenderness Glad that her previa has resolved. She had some brown spotting around noon yesterday but has had nothing since then. Her last red bleeding was 2 nights ago. OBJECTIVE: LAST VITALS: BP 126/67 Pulse (P) 88 Temp (P) 36.4 ?C (97.5 ?F) Resp (P) 18 Ht 175.3 cm (5' 9) Wt 102.5 kg (226 lb) LMP 01/14/2018 SpO2 96% BMI 33.37 kg/m? PHYSICAL EXAM: General: WD, WN, NAD, comfortable Abdomen: soft, nontender, no masses Uterus: soft, NT Extremities: tr edema MONITORING/ASSESSMENT: FHT 135/moderate/+accels/no decels [place] no contractions Cat 1 LABS Diagnostic tests reviewed for today's visit: Most recent labs and imaging results. SIGNATURE: Ana Still MD PATIENT NAME: Diana Rivas DATE: September 13, 2018 PROCEDURE Observed: 09/12/2018 Status: COMPLETED Source: [place] 9:48 PM [facility] OTHER CAMPUS REPOSITORY O ID: [id number] Author: Patrica Pompa) DIPTI Martin Service: Maternal Medicine Author Type: Registered Nurse Type: Procedures Filed: 09/12/2018 9:51 PM Note Text: Attestation signed by Eduardo Nelson at 09/13/2018 8:17 AM heart rate tracing reviewed by me and I agree with the above assessment, Eduardo Menjivar MD OBSTETRICS NST SUMMARY SERVICE DATE: September 12, 2018 The patient is a 23 year old female, , who is at 27w2d with an SAI of 12/10/2018, by Patient Reported dating method. NST OBJECTIVE FINDINGS PER NURSE: Start Time: 2041 (09/12/181999 : Patrica Martin RN) Complete Time: 2128 (09/12/182128 : Patrica Martin RN) Indications: Other: Comment (vaginal bleeding at 27 weeks) (09/12/181999 : Patrica Martin RN) Patient Reason For: NST Explanation: Procedure Explained;Monitor Explained;Verbalizes Understanding (09/12/181999 : Patrica Martin RN) Acoustic Stimulator: Interventions: MONITORING/ASSESSMENT: Baseline: 130 bpm (09/12/182128 : Patrica Martin RN) Variability: Moderate (6-25 bpm) (09/12/182128 : Patrica Martin RN) Accelerations: Present (09/12/182128 : Patrica Martin RN) Decelerations: Decelerations: None (09/12/182128 : Patrica Martin RN) Contractions: Not present (09/12/182128 : Patrica Martin RN) Frequency: Above information forwarded to for final review and interpretation. SIGNATURE: Patrica Martin RN PATIENT NAME: Diana Rivas DATE: September 12, 2018 TIME: 9:49 PM CONSULT Observed: 09/12/2018 Status: COMPLETED Source: [place] 2:30 PM [facility] OTHER [facility] REPOSITORY O ID: [id number] Author: Amber Smith Service: Neonatology Author Type: Physician Type: Consults Filed: 09/13/2018 1:11 PM Note Text: NEONATOLOGY CONSULT SERVICE DATE: 09/12/2018 Admission Date: 09/11/2018 SERVICE TIME: 1399 Date of : 1995 Age: [age] year old Sex: female Primary Care Physician: Meño Healy DO Consulting Posting Specialist: Andreea Rivero APRN.BUTTON TUFTING MACHINE OPERATOR Subjective Consultation for this evaluation was requested by Dr. Menjivar. Reason for consultation: Maternal history of placenta previa--no longer present, vaginal bleeding, shortened cervical length, and marginal cord insertion at 27 weeks gestation. is a male to be named Luis. Recommendations will be communicated back to the requesting physician by way of shared medical record or letter. Objective MATERNAL HISTORY: Mother is a 25 year old female, , who is at 27w2d with an SAI of 12/10/2018, by Patient Reported dating method. LMP: Patient's last menstrual period was 01/14/2018. Maternal Hospital Problems: ACTIVE PROBLEM LIST Depression Fatigue Weight Gain Obesity (Bmi 30.0-34.9) Vitamin D Deficiency Low Hdl (Under 40) Chronic Tension-Type Headache, Not Intractable Placenta Previa Anxiety Marginal Insertion of Umbilical Cord Affecting Management of Mother Maternal Meds: No current facility-administered medications on file prior to encounter. Current Outpatient Prescriptions on File Prior to Encounter: buPROPion XL (WELLBUTRIN XL) 150 mg 24 hr tablet Take 1 tablet by mouth once daily. (Patient not taking: Reported on 09/11/2018 ) Levonorgestrel-Ethinyl Estrad (AVIANE) 0.1mg - 20mcg per tablet Take 1 tablet by mouth once daily. (Patient not taking: Reported on 09/11/2018 ) Current hospital medications: famotidine 20 mg tab(s) (PEPCID) 20 mg ORAL DAILY sertraline 50 mg tab(s) (ZOLOFT) 50 mg ORAL DAILY vitamin with folic acid 1 mg 1 tablet 1 tablet ORAL DAILY progesterone micronized 200 mg cap(s) (PROMETRIUM) 200 mg OTHER AT BEDTIME complications: placenta previa--no longer present, vaginal bleeding, shortened cervical length, and marginal cord insertion at 27 weeks gestation. The following was discussed with mother and boyfriend's father GENERAL: Neonatology presence and role at delivery: Yes Possible need for resuscitation: Yes DNR status: N/A Need for admission to NICU: Yes Offered tour of NICU: No Discharge criteria: Yes Survival odds/morbidity AND mortality: No RESPIRATORY Risk of RDS/breathing problems: Yes Possible need for respiratory support: Yes CARDIOVASCULAR Discussed Hypotension, potential medical treatment: No Other (e.g. congenital heart disease): No NEUROLOGIC Risk of IVH/Neuro developmental delays: Yes Discussed need for evaluation by Desk Reporter for ROP: Yes Discussed risk for hearing deficit: No FEN Mother?s Preference: Breast: Yes. Benefits of breast milk: Yes Bottle: No Need for supplemental nutrition and/or IVFs: Yes INFECTION Risk factors for infection- congenital and nosocomial: Yes Need to start antibiotics: Yes [place] Possible need for blood transfusion: Yes. Verbal consent obtained: No ACCESS Possible need for UAC/UVC/PICC: Yes. Verbal consent obtained: No MISC. Name if Compliance Attorney, if known: Unknown Possible need for transfer to outside hospital: Yes Possible need for subspecialty evaluation: No Additional discussion: N/A Impression/Recommendations Assessment: placenta previa--no longer present, vaginal bleeding, shortened cervical length, and marginal cord insertion at 27 weeks gestation. Plan: Neonatology to be present at delivery Physician [id number] total time, including discussion: 60 minutes, more than 50 % of time devoted to coordination of care and/or counseling. SIGNATURE: Andreea Rivero APRN.CNP PATIENT NAME: Diana Rivas DATE: September 12, 2018 TIME: 2:30 PM PAGER/CONTACT #: [phone] I spoke to Diana this am. She has no further questions. We talked about the benefits of steroids. We also discussed fewer problems as gestation increases. Time of consult 30 mins with >50% face to face. Amber Smith MD PROGRESS NOTE Observed: 09/12/2018 Status: COMPLETED Source: [employer] 2:23 PM [facility] REPOSITORY This encounter was created in error - please disregard. This encounter was created in error - please disregard. URINALYSIS ROUTINE Collected: 09/12/2018 Status: F Source: Network Game Interaction [facility] 12:48 PM HEALTH SYSTEM REPOSITORY TYPE CODE TESTS RESULT OUT OF REFERENCE UNITS RANGE LAB COLOR(LOIN C) Urine Color YELLOW LAB APPUR(LOIN C) Urine Appearance CLEAR LAB GLUUR(LOIN Negative mg/dL C) Glucose Urine NEGATIVE LAB KETON(LOIN Negative mg/dL C) Ketone Urine NEGATIVE LAB HGBUR(LOIN Negative C) Hemoglobin,Urine NEGATIVE LAB PROTU(LOIN Negative mg/dL C) Protein Urine NEGATIVE LAB NITRI(LOIN Negative C) Nitrites Urine NEGATIVE LAB BILIU(LOIN Negative C) Bilirubin Urine NEGATIVE LAB SPG(LOINC) 1.005-1.030 Specific [place], Ur 1.009 LAB PHUR(LOINC 5.0-8.0 ) pH,Urine 7.0 LAB UROBI(LOIN 0.0-1.0 EU/dL C) Urobilinogen,Ur 0.2 LAB LEUKO(LOIN Negative C) Leukocytes NEGATIVE Esterase LAB RBCU1(LOIN 0.0-5.0 /hpf C) RBC,Urine 3.7 LAB WBCU1(LOIN 0.0-5.0 /hpf C) WBC, Urine 2.2 LAB EPIT1(LOIN 0.0-5.0 /hpf C) Ep Cells Urine 1.4 LAB BACT1(LOIN None C) Bacteria Urine NONE LAB HYCA1(LOIN 0.0-1.0 /lpf C) Hyaline High Cast 1.2 Performed By: #### URIN2 #### [facility] [address] [place] [address] PROGRESS Observed: 09/12/2018 Status: COMPLETED Source: [place] 10:06 AM [facility] REPOSITORY HNO ID: [id number] Author: Allison Harrell (Rt) Service: (none) Author Type: Automation/Controls Manager Type: Progress Notes Filed: 09/12/2018 10:11 AM Note Text: Growth and TV ultrasound completed. Gestational age 27w2d with ultrasound measuring 28w0d EFW 2lb 11oz 75%. DVP 4.90cm Placenta previa no longer present measured 3.07cm away from internal os. Placental cord insert is marginal with funic presentation. Thin appearing area of the uterine wall near bladder. Dr. Menjivar present for TV ultrasound and discussed findings with patient. Ira Hawthorne RDMS, RVT PROGRESS Observed: 09/12/2018 Status: COMPLETED Source: [place] 6:00 AM [facility] REPOSITORY HNO ID: [id number] Author: Ana Still Service: Obstetrics Author Type: Resident Type: Progress Notes Filed: 09/12/2018 6:56 AM Note Text: Attestation signed by Eduardo Nelson at 09/12/2018 1:19 PM Patient seen and examined by me and I agree with the residents assessment and plan with the following additions: I was present for her ultrasound today. Transvaginal ultrasound done. The anterior placenta is now greater than Cm from the internal os. Therefore, she no longer has a placenta previa. The cord insertion is marginal and at the inferior edge of the placenta. A funic presentation is noted. Normal amniotic fluid. While the placental interface appears normal over the prior uterine incision, there is an area next to the bladder that appears blurred and thin. We discussed that this could be a sign of an accreta. We will get a MRI to further evaluate this area. There is a subchorionic hemorrhage noted. The patient denies cramping. Her vaginal bleeding is now minimal spotting. She denies leaking of fluid and reports good movement. We discussed with the patient that she will remain hospitalized until 24-48 hours without any bright red bleeding. The patient has completed her first course of betamethasone and the neonatology team will see her today. She will need magnesium for neuroprotection if delivery is imminent. She understands that we would recommend delivery if there is non- reassuring status, significant vaginal bleeding, or labor. Otherwise, we will recommend delivery at 34-35 weeks if bleeding continues intermittently throughout the or at 37 weeks if she remains stable. Eduardo Menjivar MD OBSTETRICS ANTEPARTUM PROGRESS NOTE SERVICE DATE: 09/12/2018 SERVICE TIME: 0600 ASSESSMENT AND PLAN: 23 year old EGA:27w2d admitted for Placenta Previa. 1. Placenta Previa and rule out abruption -Rh positive -First episode of bleeding yesterday morning and she has had some spotting overnight -Monitor with pad counts -OSH ultrasound showed concern for placental abruption -CBC, coags and fibrinogen wnl -Placental eval ordered for this morning ? 2. Shortened CL -Continue vaginal progesterone ? 3. History of LTCS -Previa is anterior but there have been no ultrasound findings of accreta ? 4. Anxiety -Continue Zoloft ? 5. Prematurity -S/p BMZ at 1100 yesterday, repeat scheduled for today -PMG consult in AM -Magnesium if moving towards delivery when <32 weeks ? 6. Monitoring -cEFM, consider decreasing today ? 7. Diet -Regular ? 8. Position -Cephalic ? 9. DVT ppx -SCDs ? Disposition: First episode of bleeding has ceased. Low suspicion for abruption at this time, but formal placental evaluation ordered for this morning. SUBJECTIVE: No current vaginal bleeding, No current leaking of fluid, No contractions, Good movement, No shortness of breath or chest pain and No calf tenderness Overnight, she had some spotting with wiping. Nothing has been collected on the pads. OBJECTIVE: LAST VITALS: BP 126/72 Pulse 76 Temp 36.8 ?C (98.2 ?F) (Oral) Resp 18 Ht 175.3 cm (5' 9) Wt 102.5 kg (226 lb) LMP 01/14/2018 SpO2 99% BMI 33.37 kg/m? PHYSICAL EXAM: General: WD, WN, NAD, comfortable Abdomen: soft, nontender, no masses Uterus: soft, NT Extremities: tr edema MONITORING/ASSESSMENT: FHT 135/moderate/+accels/no decels [place] no contractions Cat 1 LABS Diagnostic tests reviewed for today's visit: Most recent labs SIGNATURE: Ana Still MD PATIENT NAME: Diana Rivas DATE: September 12, 2018 NURSING PROG Observed: 09/11/2018 Status: COMPLETED Source: [place] 7:21 PM [facility] REPOSITORY HNO ID: [id number] Author: Lauren (Rn) DIPTI Irizarry Service: Nursing Author Type: Registered Nurse Type: Nursing Progress Note Filed: 09/11/2018 7:21 PM Note Text: {called and left mess in eval for u/s in am pt verbunderstanding HEMOGRAM Collected: 09/11/2018 Status: F Source: [facility] 7:15 PM HEALTH SYSTEM REPOSITORY TYPE CODE TESTS RESULT OUT OF REFERENCE UNITS RANGE LAB WBC(LOINC) 3.98-10.04 thou/cmm High WBC 14.97 LAB RBC(LOINC) 3.93-5.22 mil/cmm Low RBC 3.77 LAB HGB(LOINC) 11.2-15.7 g/dL Hgb 12.2 LAB HCT(LOINC) 34.1-44.9 % Hct 36.1 LAB MCV(LOINC) 79.4-94.8 fl High MCV 95.8 LAB MCH(LOINC) 25.6-32.2 pg High MCH 32.4 LAB MCHC(LOINC) 31.6-34.8 % MCHC 33.8 LAB RDW(LOINC) 11.7-14.4 % RDW 12.5 LAB RDWSD(LOINC 36.4-46.3 fl ) RDW SD 43.3 LAB PLT(LOINC) 182-369 thou/cmm Platelet 318 LAB MPV(LOINC) 9.4-12.3 fl Low MPV 8.4 Performed By: #### CBC1 #### [facility] [address] [place], [place] [address] FIBRINOGEN Collected: 09/11/2018 Status: F Source: [facility] 7:[facility] REPOSITORY TYPE CODE TESTS RESULT OUT OF REFERENCE UNITS RANGE LAB FIB(LOINC) 200-400 mg/dL High Fibrinogen 439 Performed By: #### FIB #### [facility] [address] [place] [id number] PROTIME Collected: 09/11/2018 Status: F Source: [facility] 7:[facility] REPOSITORY TYPE CODE TESTS RESULT OUT OF REFERENCE UNITS RANGE LAB PTI(LOINC) 9.7-13.0 sec Prothrombin Time 9.8 LAB INR(LOINC) 0.90-1.30 INR 0.94 Result Comment: Note: Reference Range Change Vitamin K Antagonist (VKA) Therapeutic Range: INR 2 to 3 (Target INR of 2.5) Note: For patients treated with VKA drugs, such as warfarin, the [place] [employer] 2012 Guideline recommends a therapeutic INR range of 2 to 3 (target INR of 2.5). This recommendation includes high-risk patients with antiphospholipid syndrome with previous arterial or venous thromboembolism, current-generation mechanical or bioprosthetic aortic heart valve replacement. VKA Therapeutic Range for some Mechanical Valve Replacement: INR 2.5 to 3.5 (Target INR of 3) Note: Patients with mechanical aortic valve replacement and additional risk factors for thromboembolic events (atrial fibrillation, previous thromboembolism, LV dysfunction, hypercoagulable conditions) or an older generation mechanical AVR (i.e., ball in-Cage) or any mechanical MVR should have a INR therapeutic range of 2.5 to 3.5 target INR of 3). Sonia GH, et al. Chest 2012; 141:7S-47S Cass RA et al. [facility] 2017; 70: 252-289 Performed By: #### PT #### [facility] [address] [place] [id number] ACTIVATED PTT Collected: 09/11/2018 Status: F Source: [facility] 7:15 PM HEALTH SYSTEM REPOSITORY TYPE CODE TESTS RESULT OUT OF REFERENCE UNITS RANGE LAB APTT(LOINC 23.0-32.4 sec ) Activated PTT 23.4 Result Comment: Note: New Reference Range Unfractionated Heparin Therapeutic Ranges: Standard Heparin Nomogram: 53 to 78 seconds (anti-Xa level of 0.3 to 0.7 U/mL) Low Dose/ACS Nomogram: 49 to 67 seconds (anti-Xa level of 0.2 to 0.5 U/mL) Stroke Treatment Nomogram: 49 to 67 seconds (anti-Xa level of 0.2 to 0.5 U/mL) Note: The APTT therapeutic range has been determined for the current lot of laboratory APTT reagent in use throughout the [facility]. Performed By: #### APTT #### [place] [address] TYPE AND SCREEN Collected: 09/11/2018 Status: F Source: [facility] 7:15 [facility] REPOSITORY TYPE CODE TESTS RESULT OUT OF REFERENCE UNITS RANGE LAB ABO(LOINC) A ABO Group LAB TERRITORY MANAGER(LOINC ) RH Type Positive LAB ABSCR(LOIN C) Antibody NEGATIVE Screen LAB BBCMT(LOIN C) Comment See Below Result Comment: Screen &/or Xmatch expires in 3 days at 12 midnight. Redraw patient at that time. Performed By: #### T&S #### [place] [address] HISTORY PHYSICAL Observed: 09/11/2018 Status: COMPLETED Source: [place] 6:41 PM [facility] REPOSITORY HNO ID: [id number] Author: Ana Still Service: Obstetrics Author Type: Resident Type: HANDP Filed: 09/11/2018 7:01 PM Note Text: Attestation signed by Eduardo Nelson at 09/12/2018 1:19 PM Patient seen and examined by me and I agree with the residents assessment and plan. Eduardo Menjivar MD OBSTETRICS HISTORY AND PHYSICAL SERVICE DATE: September 11, 2018 SERVICE TIME: 183 Subjective Patient's stated reason for arrival: previa CHIEF COMPLAINT: vaginal bleeding HISTORY OF THE PRESENT ILLNESS: The patient is a 23 year old female, , who is at 27w1d with an SAI of 12/10/2018, by Patient Reported dating method. Patient is here complaining of vaginal bleeding. She has had spotting since Monday but had a dark clot this morning. She has a known anterior placenta previa without any ultrasound findings of accreta. This is her first episode of bleeding. She presented to [facility] where she was given a dose of steroids at 1100. She had an ultrasound performed and there was apparently concern for an abruption based on the ultrasound findings. She is without contractions or abdominal pain. Her bleeding has since stopped. Active movement. This is otherwise complicated by a marginal cord insertion, shortened cervical length and anxiety. She had 1 hour glucose challenge last week and it was normal per patient. POST DELIVERY CONTRACEPTION: Discussed post-delivery contraception options. Patient received written information about post-delivery contraception options. Patient does not desire post-delivery contraception. HISTORY REVIEW PAST MEDICAL HISTORY Diagnosis Date - Bicornate uterus - Depression anxiety - GERD (gastroesophageal reflux disease) - Menarche age 9 - PMH - PAST MEDICAL HISTORY OF 09/07/2010 Normal Color Vision - Vitamin D deficiency PAST SURGICAL HISTORY Procedure Laterality Date - DELIVERY ONLY 01/14/2010 , low transverse, daughter Steph - TOOTH EXTRACTION FAMILY HISTORY Problem Relation Age of Onset - Hypertension Maternal Grandmother - Diabetes Maternal Grandmother diet controlled - Cancer Maternal Grandmother Pancreatic/Liver/Uterine - Thyroid Maternal Grandmother - Heart Other Acute GA at age 35 - Thyroid Maternal Aunt Social History Marital status: Single Spouse name: Years of education: Number of children: 1 Occupational History Occupation Employer Comment [employer]ICE [employer] Social History Main Topics Smoking status: Never Smoker Smokeless tobacco: Never Used Alcohol use: No Drug use: No Sexual activity: Yes Partners with: Male control/protection: Pill Social History Narrative Daughter Steph ( 01/2010), engaged 10/2013 Obstetric History T1 L1 SAB0 TAB0 Ectopic0 Multiple0 Live Births0 Name of Baby 1: Not recorded Date: Not recorded GA: Not recorded Delivery: Not recorded Apgar1: Not recorded Apgar5: Not recorded Living: Not recorded Name of Baby 2: Not recorded Date: Not recorded GA: Not recorded Delivery: Not recorded Apgar1: Not recorded Apgar5: Not recorded Living: Not recorded Active Non-Hospital Problems Diagnosis Date Noted - Chronic tension-type headache, not intractable 07/24/2015 - Vitamin D deficiency 11/08/2013 - Low HDL (under 40) 11/08/2013 - Depression 10/17/2013 - Fatigue 10/17/2013 - Weight gain 10/17/2013 - Obesity (BMI 30.0-34.9) 10/17/2013 ALLERGIES No Known Allergies Prior to Admission Medications Prescriptions Last Dose Informant Patient Reported? Taking? Levonorgestrel-Ethinyl Estrad (AVIANE) 0.1mg - 20mcg per tablet Not Taking at Unknown time No No Sig: Take 1 tablet by mouth once daily. Patient not taking: Reported on 09/11/2018 buPROPion XL (WELLBUTRIN XL) 150 mg 24 hr tablet Not Taking at Unknown time No No Sig: Take 1 tablet by mouth once daily. Patient not taking: Reported on 09/11/2018 famotidine (PEPCID) 40 mg tablet 09/11/2018 at 0800 Yes Yes Sig: Take 40 mg by mouth once daily. vit/iron fum/folic ac ( 1 + 1 ORAL) 09/11/2018 at 0800 Yes Yes Sig: Take by mouth. progesterone micronized (PROMETRIUM) 200 mg capsule 09/10/2018 at 2130 Yes Yes Si mg daily at bedtime. sertraline (ZOLOFT) 50 mg tablet 09/10/2018 at 2130 Yes Yes Sig: Take 50 mg by mouth once daily. Facility-Administered Medications: None REVIEW OF SYSTEMS: The remainder of the review of systems is negative. Objective LAST VITALS: Pulse BP Resp O2 Sat Temp Pain 93 137/77 16 99 % 36.8 ?C (98.2 ?F) 0/10 HT/WT/BMI: Height Weight BMI 175.3 cm (5' 9) 102.5 kg (226 lb) 33.37 PHYSICAL EXAM: General: WD, WN, NAD, comfortable HEENT: NC/AT, sclera white, pupils equal Lungs: clear Heart: RR, S1, S2 Abdomen: soft, nontender, no masses Uterus: soft, NT Extremities: tr edema FHT: 150 bpm (09/11/18 1800 : Lauren Irizarry RN) bpm St Spec Exam: No blood in vaginal vault, moderate amount of light brown discharge likely related to vaginal progesterone use CERVICAL EXAM: Dilation: Closed (09/11/18 1853 : Ana (Kelley) Cheko) cm Station: Effacement: % Position: cephalic, +FHT, DVP 6cm, anterior previa MONITORING/ASSESSMENT: Baseline: 150 bpm (09/11/18 1800 : Lauren Irizarry RN) Variability: Moderate (6-25 bpm) (09/11/18 1800 : Lauren Irizarry RN) Accelerations: Present (09/11/18 1800 : Lauren Irizarry RN) Decelerations: Decelerations: None (09/11/18 1800 : Lauren Irizarry RN) Contractions: Not present (09/11/18 1800 : Lauren Irizarry RN) Frequency: NST Interpretation: Reactive FHR Category: 1 (09/11/18 1800 : Lauren Irizarry RN) NST Comments: LABS Diagnostic tests reviewed for today's visit: Most recent labs Assessment/Plan 23 year old EGA:27w1d with: 1. Placenta Previa and rule out abruption -Rh positive -First episode of bleeding this morning, none on admission exam -Monitor with pad counts -OSH ultrasound showed concern for placental abruption -CBC, coags, type and screen ordered -Placental eval ordered for the AM 2. Shortened CL -Continue vaginal progesterone 3. History of LTCS -Previa is anterior but there have been no ultrasound findings of accreta 4. Anxiety -Continue Zoloft 5. Prematurity -S/p BMZ at 1100 today, repeat scheduled for tomorrow -PMG consult in AM -Magnesium if moving towards delivery when <32 weeks 6. Monitoring -cEFM 7. Diet -Regular 8. Position -Cephalic 9. DVT ppx -SCDs D/w Dr. Gilman SIGNATURE: Ana Still MD PATIENT NAME: Diana Rivas DATE: September 11, 2018 TIME: 6:41 PM PAGER/CONTACT #: [phone] CBC-COMPLETE BLOOD CNT Collected: 09/11/2018 Status: F Source: [place] NO DIFF 9:40 AM [facility] REPOSITORY TYPE CODE TESTS RESULT OUT OF RANGE REFERENCE UNITS LAB L100.1000 4.4-11.0 K/mm3 Normal WBC 11.0 LAB L100.1200 4.2-5.4 M/mm3 Low RBC 3.62 LAB L100.1300 12.0-15.0 g/dl Low HGB 11.4 LAB L100.1400 37-47 % Low HCT 34.9 LAB L100.1500 81-99 fL Normal MCV 96.4 LAB L100.1600 27.0-32.0 pg Normal MCH 31.5 LAB L100.1700 32-36 g/gl Normal MCHC 32.7 LAB L100.1810 11.6-14.6 % Normal RDW CV 12.8 LAB L100.1820 35.1-43.9 fl High RDW SD 44.9 LAB L100.1900 150-450 K/mm3 Normal PLT 251 LAB L100.2000 6.2-12.0 fl Normal MPV 8.3 Performed By: #### L100.0500 #### [facility] [address] [place], [address] FIBRINOGEN Collected: 09/11/2018 Status: F Source: [place] 9:40 AM [facility] REPOSITORY TYPE CODE TESTS RESULT OUT OF RANGE REFERENCE UNITS LAB L300.4700 203-444 mg/dl Normal FIB 385 Performed By: #### L300.4700 #### [facility] [address] [place], [address] OB LIMITED (NO Observed: 09/11/2018 Status: F Source: [facility] [employer]) 9:09 AM [facility] REPOSITORY [facility] Imaging Services [address] [place] [address] OB Limited (No Biometrics) MR#: [id number] Acct: [id number] Name: DIANA RIVAS Rep #: [id number] : 1995 F 23 From: Karthikeyan Kruse MD PCP: Meño Davis DO Status: REG CLI Study: OB Limited (No Biometrics) Date of Exam: 09/11/18 Exam# [id number] Ordering Dr: Savana Solis MD STUDY: SECOND AND THIRD TRIMESTER OBSTETRICAL ULTRASOUND - LIMITED REASON FOR EXAM: Female, 23 years old. Bleeding. History of placenta previa. LMP: March 05, 2018. PRIOR ULTRASOUND: Comparison is made with prior examination dated July 17, 2018. TECHNIQUE: Transabdominal and Transvaginal TECHNICAL QUALITY: Adequate. FINDINGS: There is a single intrauterine fetus. The fetus is in a cephalic presentation. There is demonstrated cardiac activity with a heart rate of 149 bpm. There is a normal amniotic fluid volume. The largest amniotic fluid pocket measures 5.8 cm. The amniotic fluid index (ALTAF) is 18.0 cm. The placenta is anterior with a complete previa. There are Grade 1 placental changes. There is a 2.9 cm x 2.6 cm x 0.9 cm hypoechoic finding deep to the placenta adjacent to the fundus. A similar appearing finding measuring 5.3 cm x 4.7 cm x 1.1 cm along the lower uterine segment near the cervix. These may represent focal areas of a retroplacental hematomas. The cervix measures 4.0 cm in length. /OB Limited (No Biometrics) IMPRESSION: Anterior complete previa. Findings suggestive of a 2 retroplacental hematomas and possible separation as described. Electronically Signed: Karthikeyan Kruse MD at 11:10 EST Tel [phone], Service support , CC: Meño Davis DO; Savana Solis MD Field Crop Grower: Signed CBC-COMPLETE BLOOD CNT Collected: 09/08/2018 Status: F Source: [place] NO DIFF 9:10 PM [facility] REPOSITORY TYPE CODE TESTS RESULT OUT OF RANGE REFERENCE UNITS LAB L100.1000 4.4-11.0 K/mm3 High WBC 11.1 LAB L100.1200 4.2-5.4 M/mm3 Low RBC 3.58 LAB L100.1300 12.0-15.0 g/dl Low HGB 11.4 LAB L100.1400 37-47 % Low HCT 34.4 LAB L100.1500 81-99 fL Normal MCV 96.1 LAB L100.1600 27.0-32.0 pg Normal MCH 31.8 LAB L100.1700 32-36 g/gl Normal MCHC 33.1 LAB L100.1810 11.6-14.6 % Normal RDW CV 12.7 LAB L100.1820 35.1-43.9 fl High RDW SD 44.5 LAB L100.1900 150-450 K/mm3 Normal PLT 258 LAB L100.2000 6.2-12.0 fl Normal MPV 8.2 Performed By: #### L100.0500 #### [facility] [address] [place], [address] FIBRINOGEN Collected: 09/08/2018 Status: F Source: [place] 9:10 PM [facility] REPOSITORY TYPE CODE TESTS RESULT OUT OF RANGE REFERENCE UNITS LAB L300.4700 203-444 mg/dl Normal FIB 410 Performed By: #### L300.4700 #### [facility] [address] [place], [address] PROTEIN+CREATININE Collected: Status: F Source: [place] RATIO,URINE 09/03/2018 7:50 PM [facility] REPOSITORY TYPE CODE TESTS RESULT OUT OF RANGE REFERENCE UNITS LAB L501.1200 NO RANGE EST. mg/dL Normal UR CREAT 76.70 LAB L501.1930 <11.9 mg/dL High 16.7 PROTEIN,UR.R AN. LAB L501.1940 0-200 mg/g CRE High PROT:CRE 218 RATIO Performed By: #### L501.0900 #### [facility] [address] [place], [address] GLUCOSE CHALLENGE GEST Collected: 09/03/2018 Status: F Source: [place] 1H 50G 4:47 PM [facility] REPOSITORY TYPE CODE TESTS RESULT OUT OF RANGE REFERENCE UNITS LAB L501.0250 70-140 mg/dL Normal GLU GEST 133 50g 1H Performed By: #### L501.0250 #### [facility] [address] [place], [address] CBC W/DIFF, AUTOMATED Collected: 09/03/2018 Status: F Source: [place] 4:47 PM [facility] REPOSITORY TYPE CODE TESTS RESULT OUT OF RANGE REFERENCE UNITS LAB L100.1000 4.4-11.0 K/mm3 High WBC 13.3 LAB L100.1200 4.2-5.4 M/mm3 Low RBC 3.55 LAB L100.1300 12.0-15.0 g/dl Low HGB 11.3 LAB L100.1400 37-47 % Low HCT 34.7 LAB L100.1500 81-99 fL Normal MCV 97.7 LAB L100.1600 27.0-32.0 pg Normal MCH 31.8 LAB L100.1700 32-36 g/gl Normal MCHC 32.6 LAB L100.1810 11.6-14.6 % Normal RDW CV 12.8 LAB L100.1820 35.1-43.9 fl Normal RDW SD 43.9 LAB L100.1900 150-450 K/mm3 Normal PLT 325 LAB L100.2000 6.2-12.0 fl Normal MPV 8.5 LAB L100.2100 47-70 % High NEUT% 79.4 LAB L100.2200 19-41 % Low LY% 13.3 LAB L100.2300 0-10 % Normal MONO% 6.2 LAB L100.2400 0-5 % Normal EO% 0.7 LAB L100.2500 0-1 % Normal BASO% 0.1 LAB L100.2550 0.0-0.9 % Normal IM GRAN % 0.300 Result Comment: IG% - Immature Granulocytes (promyelocytes, myelocytes and metamyelocytes) > 1% indicates that a LEFT SHIFT is Present. LAB L100.2620 2.0-7.7 X10 3/uL High Absolute Neut 10.6 LAB L100.2720 0.83-4.51 X10 3/ul Normal Absolute Lymph 1.78 Performed By: #### L100.0100 #### [facility] [address] [place], [address] PROTEIN+CREATININE Collected: Status: F Source: [facility] RATIO,URINE 09/03/2018 4:47 PM [facility] REPOSITORY TYPE CODE TESTS RESULT OUT OF RANGE REFERENCE UNITS LAB L501.1200 NO RANGE EST. mg/dL Normal UR CREAT 149.00 LAB L501.1930 <11.9 mg/dL High 21.1 PROTEIN,UR.R AN. LAB L501.1940 0-200 mg/g CRE Normal PROT:CRE 142 RATIO Performed By: #### L501.0900 #### [facility] [address] [place], [address] BIOINFORMATICS COMPUTER SCIENTIST OFFICE VISIT Observed: 09/03/2018 Status: F Source: [facility] REPORT 4:12 PM [facility] REPOSITORY [facility] [address] [place] [address] OFFICE VISIT Date of Service: 09/03/18 MR#: [id number] Acct: [id number] Name: DIANA RIVAS Kirk Rep #: [id number] : 1995 Provider: Savana Solis MD Age/Sex: 23/F [place] [facility] [place]: Signed Intake Vital Signs09/03/18 Height 5 ft 9 in 09/03/18 Weight: 227 lb 09/03/18 Body Mass Index (BMI) 33.5 09/03/18 Blood Pressure 138/80 H Intake Visit Reasons: est ob 26 weeks Chief Complaint: est ob River Expedition Guide Required: No Is patient in pain?: No Allergies No Known Allergies Allergy (Verified 09/03/18 15:40) Medications doxylamine succinate 25 mg tablet 25 mg PO QHS PRN 05/07/18 [History Confirmed 09/03/18] vit 123-iron 28 mg-folic acid 800 fpz-lrijk-2u 235 mg capsule 1 cap PO QDAY 05/07/18 [History Confirmed 09/03/18] pyridoxine (vitamin B6) 50 mg tablet 50 mg PO ONCE 05/07/18 [History Confirmed 09/03/18] ranitidine 150 mg tablet 150 mg PO QDAY 05/07/18 [History Confirmed 09/03/18] sertraline 50 mg tablet 50 mg PO QDAY #30 tab 05/25/18 [Rx Confirmed 09/03/18] promethazine 12.5 mg tablet 12.5 mg PO Q6H PRN #60 tab 05/30/18 [Rx Confirmed 09/03/18] famotidine 40 mg tablet 40 mg PO DAILY #30 tab 07/20/18 [Rx Confirmed 09/03/18] Last Menstral Period: 03/05/18 Zika: Zika virus screening: Negative : No PFSH PFSH Medical History Acid reflux (Acute) Anxiety (Acute) Bicornate uterus (Acute) Surgical History H/O section (Acute 2009) Social History adopted: No household members: children housing: apartment number of children: 1 current occupational status: employed current occupation: [employer] pets and animals: Yes pets and animals: cat(s) Smoking Status: Never smoker second hand exposure: No alcohol intake: current alcohol intake frequency: other substance use type: does not use what type of physical activity do you participate in: none seatbelt use: always do you feel safe at home: Yes additional social history: [facility]- [facility] Pregancy History 2 Elective abortions Hx Para 1 Spontaneous abortions Past Pregnancies Del. DateName GA/Weeks Outcome Route Bth WeighInfant GeLabor LgtAnesthesiDel LocatProvider FOB t n h a n Delivery Date: 03/16/10 On 05/07/18 @ 14:55 Rina Schuster Bi-cornate uterus HPI est ob 26 weeks: Details: DIANA RIVAS is a 23 year old who presents for routine OB visit. OB Visit SAI Calculator Estimated Delivery Date 12/10/18 Based on LMP (certain) 03/05/18 Current WG 26w 0d Number 1 Expected Delivery Route/Plan considering , depends on previa Specific Issue/Plans flu vaccine: get next time minichart given: given tdap vaccine: rhogam: LARC form signed: labor support person: Renzo pain management: cut cord/dad catch: : PP control planned: special requests: Initial Weight: 227 lb Date Weight BP Urine PrFHR FuHt Pres MoCTX DilationFetal StVisit NoProviderComments E ot v te GA G Effac lucose ed Visit Notes Visit Date: 09/03/18 no vb occasional cramping. repeat us ordered. good fm cbc gct. flu and tdap next visit Savana Solis MD on 09/03/18 Visit Date: 08/06/18 saw MFM. shortened cervical length and still a previa, no acreata. started on progesterone cream Savana Solis MD on 08/06/18 Visit Date: 07/02/18 no vb cramping scheduled anatomy scan, declines afp screening. Savana Solis MD on 07/02/18 Visit Date: 06/04/18 Nausea better with phenergan. Seldom vomits. Doesn't feel like eating much. No VB, LOF. Confirm FHT with brief US NAOMY Bhatia on 06/04/18 Visit Date: 05/07/18 No visit notes to display ACOG First Trimester First Trimester: Desire for , Alcohol, Tobacco Cessation, Illicit/Recreational Drug/Substance Use, Intimate Partner Violence, Barriers to care, Unstable Housing, Communication Barriers, Environmental/Work Hazards, Anticipated Course of Care, Toxoplasmosis Precations, Use of Any medications, Sexual activity, Exercise, Dental Care, Sauna/Hot tub use, Seat Belt use, Childbirth classes/Hospital facilities, , Travel, Indications for US and Screening for Aneuploidy Diagnostics Diagnostics Labs Blood Type A POSITIVE 05/08/18 Antibody Screen NEGATIVE 05/08/18 Hct 40.2 % (37-47) 05/08/18 Hgb 13.3 g/dl (12.0-15.0) 05/08/18 Pap Smear Negative 02/07/18 Obstetrics Ultrasound 07/17/18 Rubella IgG Antibody 43.3 IU/mL 05/08/18 RPR NONREACTIVE (NONREACTIVE) 05/08/18 Hep Bs Antigen Negative (Negative) 05/08/18 Chlam trachomat DNA PCR Negative (Negative) 05/07/18 N.gonorrhoeae DNA (PCR) Negative (Negative) 05/07/18 Glucose 1 Hr 50 gm 128 mg/dL (70-140) 05/08/18 Details: HIV: Urine Culture: Sequential Screen: NIPT Screen: Assessment AND Plan Problems 1. BMI 30.0-30.9,adult Z68.30 ordered 1 tm glucola 2. History of delivery, antepartum O34.219 considering , education given 3. 26 weeks gestation of Z3A.26 declines genetic and NTD screening. anatomy scan reviewed 4. Placenta previa antepartum O44.00 Anterior previa, no accreata, previous C/S. MFM Consult 5. Encounter for supervision of other normal in second trimester Z34.82 PRR SAI 12/10/18 boy Adolfo YUSUF Steph Renzo 6. Marginal insertion of umbilical cord growth US every 4 weeks 7. Antepartum cervical shortening O26.879 given vaginal progesterone Plan ACOG trimester education reviewed and updated. see problem list details for updated plan management information and see below for orders placed at this visit. GA appropriate handout given. Orders Orders: Coding Level of Care Code OB Routine Diagnoses BMI 30.0-30.9,adult Z68.30 History of delivery, antepartum O34.219 26 weeks gestation of Z3A.26 Weeks of gestation: 26 weeks Placenta previa antepartum O44.00 Encounter for supervision of other normal in second trimester Z34.82 Normal : other normal Trimester: second trimester Marginal insertion of umbilical cord Antepartum cervical shortening O26.879 09/03/18 1612 <Electronically signed by Savana Solis MD> Date Savana Solis MD Cosigner Signature: Date (if applicable) CC: URINALYSIS, COMPLETE Collected: 08/20/2018 Status: F Source: JAMEY 6:25 PM [facility] RE[facility] Order Comment: How was Urine Obtained? CLEAN CATCH TYPE CODE TESTS RESULT OUT OF RANGE REFERENCE UNITS LAB L400.3000 Yellow COLOR Normal Yellow LAB L400.3050 Clear Normal CLARITY Clear LAB L400.3200 Normal mg/dl Normal GLUCOSE, UR Normal LAB L400.3300 Negative mg/dL Normal BILIRUBIN URINE Negative LAB L400.3400 Negative mg/dl Normal KETONE UR Negative LAB L400.3465 1.002-1.030 Normal SP.GR. DIPSTX 1.025 LAB L400.3550 5.0 - 8.0 pH UR Normal 6.0 LAB L400.3600 Negative mg/dl High PROT 15 DIPSTX LAB L400.3700 Normal mg/dl High 1 UROBILI LAB L400.3750 Negative Normal NITRITE UR Negative LAB L400.3780 Negative /ul Normal OCCULT BLOOD-UR Negative LAB L400.3800 Negative /ul High LEUK 25 ESTERASE LAB L400.4050 0-5 /hpf WBC Normal 0-5 SEEN LAB L400.4100 0-5 /hpf 0 Normal RBC-UA SEEN LAB L400.4150 5-10 /hpf SQUAM Normal EPI 0-5 SEEN LAB L400.4300 None Seen /hpf 1+ Normal BACTERIA LAB L400.4350 <or=2+ /hpf 0 Normal MUCUS, URINE SEEN Performed By: #### L400.0001 #### [facility] [address] [place], [place], [address] Observed: 08/20/2018 Status: F Source: JAMEY CULTURE, URINE 6:25 PM [facility] Urine Culture ORGANISM 1: Mixed Gram Positive Organisms [place] Count 25,000-50,000 MIX CULTURE Mixed contaminants. Submit a new specimen if indicated. Performed By: #### M100.0650 #### [facility] [address] [place], [address] BIOINFORMATICS COMPUTER SCIENTIST OFFICE VISIT Observed: 08/06/2018 Status: F Source: JAMEY REPORT 4:23 PM [facility] [address] [place] [address] OFFICE VISIT Date of Service: 08/06/18 MR#: [id number] Acct: [id number] Name: DIANA RIVAS Rep #: [id number] : 1995 Provider: Savana Solis MD Age/Sex: 23/F [place] [facility]: Signed Intake Vital Signs08/06/18 Height 5 ft 9 in 08/06/18 Weight: 222 lb 6 oz 08/06/18 Body Mass Index (BMI) 32.8 08/06/18 Blood Pressure 118/78 Intake Visit Reasons: est ob 22 weeks Accompanied by: Is patient in pain?: No Allergies No Known Allergies Allergy (Verified 08/06/18 16:03) Medications doxylamine succinate 25 mg tablet 25 mg PO QHS PRN 05/07/18 [History Confirmed 08/06/18] vit 123-iron 28 mg-folic acid 800 [id number]-btzin-1u 235 mg capsule 1 cap PO QDAY 05/07/18 [History Confirmed 08/06/18] pyridoxine (vitamin B6) 50 mg tablet 50 mg PO ONCE 05/07/18 [History Confirmed 08/06/18] ranitidine 150 mg tablet 150 mg PO QDAY 05/07/18 [History Confirmed 08/06/18] sertraline 50 mg tablet 50 mg PO QDAY #30 tab 05/25/18 [Rx Confirmed 08/06/18] promethazine 12.5 mg tablet 12.5 mg PO Q6H PRN #60 tab 05/30/18 [Rx Confirmed 08/06/18] famotidine 40 mg tablet 40 mg PO DAILY #30 tab 07/20/18 [Rx Confirmed 08/06/18] Last Menstral Period: 03/05/18 Zika: Zika virus screening: Negative : No PFSH PFSH Medical History Acid reflux (Acute) Anxiety (Acute) Bicornate uterus (Acute) Surgical History H/O section (Acute 2009) Social History adopted: No household members: children housing: apartment number of children: 1 current occupational status: employed current occupation: [employer] pets and animals: Yes pets and animals: cat(s) Smoking Status: Never smoker second hand exposure: No alcohol intake: current alcohol intake frequency: other substance use type: does not use what type of physical activity do you participate in: none seatbelt use: always do you feel safe at home: Yes additional social history: [facility] Pregancy History 2 Elective abortions Hx Para 1 Spontaneous abortions Past Pregnancies Del. DateName GA/Weeks Outcome Route Bth WeighInfant GeLabor LgtAnesthesiDel LocatProvider FOB t n h a n Delivery Date: 03/16/10 On 05/07/18 @ 14:55 Rina Schuster Bi-cornate uterus HPI est ob 22 weeks: Details: DIANA RIVAS is a 23 year old who presents for routine OB visit. OB Visit SAI Calculator Estimated Delivery Date 12/10/18 Based on LMP (certain) 03/05/18 Current WG 22w 0d Number 1 Expected Delivery Route/Plan considering , depends on previa Specific Issue/Plans flu vaccine: [] minichart given: given tdap vaccine: [] rhogam: [] LARC form signed: [] labor support person: Renzo pain management: [] cut cord/dad catch: [] : [] PP control planned: [] special requests: [] Initial Weight: 227 lb Date Weight BP Urine PrFHR FuHt Pres MoCTX DilationFetal StVisit NoProviderComments E ot v te GA G Effac lucose ed Visit Notes Visit Date: 08/06/18 saw MFM. shortened cervical length and still a previa, no acreata. started on progesterone cream Savana Solis MD on 08/06/18 Visit Date: 07/02/18 no vb cramping scheduled anatomy scan, declines afp screening. Savana Solis MD on 07/02/18 Visit Date: 06/04/18 Nausea better with phenergan. Seldom vomits. Doesn't feel like eating much. No VB, LOF. Confirm FHT with brief US NAOMY Bhatia on 06/04/18 Visit Date: 05/07/18 No visit notes to display ACOG First Trimester First Trimester: Desire for , Alcohol, Tobacco Cessation, Illicit/Recreational Drug/Substance Use, Intimate Partner Violence, Barriers to care, Unstable Housing, Communication Barriers, Environmental/Work Hazards, Anticipated Course of Care, Toxoplasmosis Precations, Use of Any medications, Sexual activity, Exercise, Dental Care, Sauna/Hot tub use, Seat Belt use, Childbirth classes/Hospital facilities, , Travel, Indications for US and Screening for Aneuploidy Diagnostics Diagnostics Labs Blood Type A POSITIVE 05/08/18 Antibody Screen NEGATIVE 05/08/18 Hct 40.2 % (37-47) 05/08/18 Hgb 13.3 g/dl (12.0-15.0) 05/08/18 Pap Smear Negative 02/07/18 Obstetrics Ultrasound 07/17/18 Rubella IgG Antibody 43.3 IU/mL 05/08/18 RPR NONREACTIVE (NONREACTIVE) 05/08/18 Hep Bs Antigen Negative (Negative) 05/08/18 Chlam trachomat DNA PCR Negative (Negative) 05/07/18 N.gonorrhoeae DNA (PCR) Negative (Negative) 05/07/18 Glucose 1 Hr 50 gm 128 mg/dL (70-140) 05/08/18 Details: HIV: Urine Culture: Sequential Screen: NIPT Screen: Results [id number] Office Urine Glucose Negative Last Edit by Lorelei Grant on 08/06/18 16:00 Office Urine Protein Negative Last Edit by Lorelei Grant on 08/06/18 16:00 Assessment AND Plan Problems 1. BMI 30.0-30.9,adult Z68.30 ordered 1 tm glucola 2. History of delivery, antepartum O34.219 considering , education given 3. 22 weeks gestation of Z3A.22 declines genetic and NTD screening. anatomy scan reviewed 4. Encounter for supervision of other normal in second trimester Z34.82 PRR SAI 12/10/18 PC January Renzo 5. Placenta previa antepartum O44.00 Anterior previa, previous C/S. MFM Consult Plan ACOG trimester education reviewed and updated. see problem list details for updated plan management information and see below for orders placed at this visit. GA appropriate handout given. Orders Orders: Coding Level of Care Code OB Routine Diagnoses BMI 30.0-30.9,adult Z68.30 History of delivery, antepartum O34.219 22 weeks gestation of Z3A.22 Weeks of gestation: 22 weeks Encounter for supervision of other normal in second trimester Z34.82 Normal : other normal Trimester: second trimester Placenta previa antepartum O44.00 08/06/18 1623 <Electronically signed by Savana Solis MD> Date Savana Solis MD Cosigner Signature: Date (if applicable) CC: PROGRESS NOTE Observed: 08/06/2018 Status: COMPLETED Source: LISA 12:30 PM [facility] REPOSITORY Maternal Medicine Consult Date of Service: 08/06/2018 Referring Provider: Savana Solis Primary Care Provider: Naomy [facility], MD Queenie Reason for Consult: Dr. Savana Solis requests that Diana be evaluated due to placenta previa with a prior delivery. Matt is a 23 y.o. at 22 weeks 0 days. She has a known anterior placenta previa with a prior delivery. She denies any bleeding, leaking or cramping. Her is also complicated by a bicornuate uterus. Her last was on her right side and she had labor that she states was stopped with medications. She had a full term delivery due to the bicornuate uterus (per the patient). On ultrasound today, a short cervix was noted at 22 mm. No evidence of funneling or dynamic changes. Obstetric History T1 L1 SAB0 TAB0 Ectopic0 Multiple0 Live Births1 # Outcome Date GA Lbr Noé/2nd Weight Sex Delivery Anes PTL Lv 2 Current 1 Term 01/14/10 39w0d 3.544 kg F CS-Unspec Spinal N MICHELLE Name: January Past Medical History: Diagnosis Date Acid reflux Anxiety bicornate uterus Depression Gastrointestinal complaints, nonspecific IBS Past Surgical History: Procedure Laterality Date SECTION WISDOM TOOTH EXTRACTION No Known Allergies Social History Social History Marital status: Single Spouse name: N/A Number of children: N/A Years of education: N/A Social History Main Topics Smoking status: Never Smoker Smokeless tobacco: Never Used Alcohol use No Drug use: Unknown Sexual activity: Yes Partners: Male Other Topics Concern None Social History Narrative None Infections Live with someone with or exposed to TB No Partner has hx of genital herpes No Rash or viral illness since last menstruation No History of STI's None 2nd STI 3rd STI Is there anything else we should know? No Other infections Genetics Age is > than 35y as of estimated date No Thalassemia No Neural Tube Defect No Congenital Heart Defect No Down Syndrome No Ra-Sachs No Jewels Disease No Sickle Cell Disease or Trait No Hemophilia, Thrombophilia No Muscular Dystrophy No Cystic Fibrosis No Calloway's Chorea No Mental Retardation/Autism No Maternal Metabolic Disorder No Recurrent Loss, or a Stillbirth No Illicit; Rec.drugs; Alcohol since last menses No Family History Problem Relation Age of Onset No known problems Mother No known problems Father No known problems Brother Cancer Maternal Grandmother Liver Diabetes Mellitus II Maternal Grandmother Cirrhosis Maternal Grandmother High Blood Pressure Paternal Grandfather High Blood Pressure Maternal Aunt Thyroid Disease Maternal Aunt Outpatient Encounter Prescriptions as of 08/06/2018 Medication Sig Dispense Refill Famotidine (PEPCID) 40 MG tablet Take 40 mg by mouth daily escitalopram (LEXAPRO) 10 MG tablet Take 10 mg by mouth daily Vit w/Kd-Ifneyucil-UG (PNV PO) Take 1 Tab by mouth daily progesterone (PROMETRIUM) 200 MG 200mg per vagina qHS 30 Each 5 No facility-administered encounter medications on file as of 08/06/2018. Review of Systems Physical Exam FHT: 145 Presentation: Breech Uterine Size: S=D Laboratory Test results: No results found for any previous visit. Ultrasound Results: 1. Single living intrauterine with biometry consistent with clinical dates. 2. Anatomic survey was adequately visualized and appeared normal. The profile was not seen due to position. 3. Amniotic fluid appeared normal. 4. Placenta is anterior and a previa. No evidence of an accreta. A marginal cord insertion is noted. 5. Transvaginal cervical length to evaluate for risk for labor was performed. The cervix is short at 23mm without evidence of funneling or dynamic changes. Cerclage and progesterone are the two interventions that have been evaluated in randomized trials for effectiveness in preventing pretermbirth in women with villalobos gestations without a prior . In a randomized placebo-controlled trial, treatment with vaginal progesterone 200 mg daily was associated with a 44% decrease in spontaneous at less than 34 weeks gestation among asymptomatic women with a cervical length of 15mm or less at 20-25 weeks gestation. Another randomized placebo-controlled trial had similar findings. Therefore, vaginal progesterone is recommended in asymptomaticwomen with a villalobos without a history of with an incidentally identified short cervix (<20 mm) before 24 weeks of gestation. Newer data has emerged from Dr. Flowers that starting vaginal progesterone if the cervical length is <25mm at <24 weeks may also decrease the risk of delivery. As the patient has a bicornuate uterus and a cervical length <25 mm, the decision was made with the patient to start vaginal progesterone. In contrast, cerclage placement in women with a cervical length less than 25 mm detected prior to 24 weeks of gestation without a history of a prior , has not been associated with a significant reduction in at less than 35 weeks gestation. If a cervical length of <25mm is seen incidentally on ultrasound prior to 24 weeks gestation in a patient with a prior who has been on progesterone since 16 weeks, a cerclage should be considered. In 2012, a multicenter trial randomly assigned 385 women with a cervical length <25mm at 20-23 weeks to use of a cervical pessary or expectant management (no pessary). The majority of these women (89%) denied a history of and none were treated with progestogens or cerclage. The pessary group had a significant reduction in spontaneous <28 weeks (4/190 [2%] vs 16/190 [8%]) and <34 weeks (12/190 [6%] vs 51/190 [27%]). No adverse effects were noted other than vaginal discharge and mild discomfort upon insertion. Use of a pessary to prolong in women with a short cervix and no history of delivery is easy and inexpensive and can be considered in addition to the use of progesterone. In patients with a placenta previa and one prior section, the incidence of an accreta is 11%. The placental/uterine interface should be followed throughout the as an accreta can develop over time. A bicornuate uterus places the at increased risk. We discussed that spontaneous occurs in 36% of pregnancies with a bicornuate uterus and occurs in up to 23%. growth restriction and malpresentation in labor is also more common leading to an increase in deliveries. Impression/Plan: 23 y.o. at 22w0d with Active Non-Hospital Problems Diagnosis Date Noted Bicornuate uterus affecting , antepartum 08/27/2018 Discussed increased risk for delivery, PPROM, delivery due to malpresentation. Short cervix affecting 08/27/2018 Start vaginal progesterone 200mcg qHS. H/O section complicating 08/27/2018 Considering a repeat delivery Placenta previa without hemorrhage, antepartum 08/27/2018 The patient understands she has an 11% risk of an accreta with an anterior placenta previa and one prior delivery. No evidence of an accreta at this time. Continue to follow the placenta/uterine interface every 4 weeks Serial growth ultrasounds every 4 weeks Recommend a delivery at 36-37 weeks or sooner as clinically indicated. Supervision of other high risk , antepartum 08/27/2018 Co-management PLAN OF CARE MD/OB APPOINTMENTS Genetic screening: How often should patient be evaluated? Monthly to 28 weeks, q 2 weeks from 28 to 36 weeks then weekly until delivery Work restrictions: pelvic rest, no exercise, no heavy lifting EVALUATION surveillance: prn Ultrasound: EFW and placenta evaluation every 4 weeks DELIVERY PLAN Hospital: [facility] C/S at 36-37 weeks GBS culture: Contraception: : Follow up in 3-4 weeks for ultrasound. Eduardo Menjivar MD The total patient time of the visit was 60 minutes, of which greater than 50% of the time was spent counseling and coordinating care. OB ANATOMY SCAN Observed: 07/17/2018 Status: F Source: ROGERS 12:49 PM [facility] Imaging Services [address] [place] [address] OB Anatomy Scan MR#: [id number] Acct: [id number] Name: DIANA RIVAS Rep #: [id number] : 1995 F 23 From: Karthikeyan Kruse MD PCP: Meño Davis DO Status: REG CLI Study: OB Anatomy Scan Date of Exam: 07/17/18 Exam# [id number] Ordering Dr: Farrah Moya STUDY: SECOND AND THIRD TRIMESTER OBSTETRICAL ULTRASOUND REASON FOR EXAM: Female, 23 years old. Routine survey. LMP: March 05, 2018. TECHNIQUE: Transabdominal PRIOR ULTRASOUND: None. FINDINGS: There is a single intrauterine fetus. The fetus is in a variable presentation. There is demonstrated cardiac activity with a heart rate of 146 bpm. There is a normal amniotic fluid volume. The largest amniotic fluid pocket measures 6.0 cm x 4.5 cm. The amniotic fluid index (ALTAF) is normal. The placenta is anterior with a complete previa. A short segment of the placenta covers the os There are Grade 0 placental changes. The cervix measures 3.4 cm in length. The bilateral adnexal regions are normal. BIOMETRY: BPD: 4.48 cm: 19 weeks, 4 days HC: 16.52 cm: 19 weeks, 2 days AC: 14.28 cm: 19 weeks, 5 days FL: 3.18 cm: 20 weeks, 0 days CI: 80% FL/BPD: 71% FL/HC: FL/AC: 22% HC/AC: 1.16 age by current US: 19 weeks, 5 days. SAI by current US: December 06, 2018. Estimated weight: 308 grams, +/- 45 grams, 78 %. Age by LMP: 19 weeks, 1 days. SAI by LMP: December 10, 2018. ANATOMY: Gender: Male Cranium: Normal lateral ventricles. Normal choroid plexus. Normal cerebellum. Normal cisterna magna. Normal face, nose and lips. Chest: Normal 4-chamber heart. Abdomen/Pelvis: Normal diaphragm. Normal stomach. Normal abdominal wall. Normal cord insertion. Normal 3 vessel cord. Normal kidneys. Normal bladder. Spine: Normal cervical spine. Normal thoracic spine. Normal lumbar spine. Normal sacrum. Extremities: Normal bilateral upper extremities. Normal bilateral lower extremities. US/OB Anatomy Scan IMPRESSION: Single live intrauterine gestation with a mean gestational age of 19 weeks and 5 days. Anterior complete placenta previa. A short segment of the placenta covers the cervical os. A follow-up sonogram is recommended. Electronically Signed: Karthikeyan Kruse MD at 8:29 EDT Tel [phone], Service support , CC: LILLIE Moya; Meño Davis DO Field Crop Grower: Signed BIOINFORMATICS COMPUTER SCIENTIST OFFICE VISIT Observed: 07/02/2018 Status: F Source: ROGERS REPORT 4:30 PM [facility] [address] [place] [address]. [address] [place] [address] OFFICE VISIT Date of Service: 07/02/18 MR#: [id number] Acct: [id number] Name: DIANA RIVAS Rep #: [id number] : 1995 Provider: Savana Solis MD Age/Sex: 23/F [place] [facility]: Signed Intake Vital Signs07/02/18 Height 5 ft 9 in 07/02/18 Weight: 221 lb 2 oz 07/02/18 Body Mass Index (BMI) 32.6 07/02/18 Blood Pressure 129/84 Intake Visit Reasons: est ob 17 weeks River Expedition Guide Required: No Is patient in pain?: No Allergies No Known Allergies Allergy (Verified 07/02/18 16:06) Medications doxylamine succinate 25 mg tablet 25 mg PO QHS PRN 05/07/18 [History Confirmed 07/02/18] vit 123-iron 28 mg-folic acid 800 jbl-xhuzo-2w 235 mg capsule 1 cap PO QDAY 05/07/18 [History Confirmed 07/02/18] pyridoxine (vitamin B6) 50 mg tablet 50 mg PO ONCE 05/07/18 [History Confirmed 07/02/18] ranitidine 150 mg tablet 150 mg PO QDAY 05/07/18 [History Confirmed 07/02/18] sertraline 50 mg tablet 50 mg PO QDAY #30 tab 05/25/18 [Rx Confirmed 07/02/18] promethazine 12.5 mg tablet 12.5 mg PO Q6H PRN #60 tab 05/30/18 [Rx Confirmed 07/02/18] Last Menstral Period: 03/05/18 Zika: Zika virus screening: Negative : No PFSH PFSH Medical History Acid reflux (Acute) Anxiety (Acute) Bicornate uterus (Acute) Surgical History H/O section (Acute 2010) Social History adopted: No household members: children housing: apartment number of children: 1 current occupational status: employed current occupation: [employer] pets and animals: Yes pets and animals: cat(s) Smoking Status: Never smoker second hand exposure: No alcohol intake: current alcohol intake frequency: other substance use type: does not use what type of physical activity do you participate in: none seatbelt use: always do you feel safe at home: Yes additional social history: Boyfriend- [facility] Pregancy History 2 Elective abortions Hx Para 1 Spontaneous abortions Past Pregnancies Del. DateName GA/Weeks Outcome Route Bth WeighInfant GeLabor LgtAnesthesiDel LocatProvider FOB t n h a n Delivery Date: 03/16/10 On 05/07/18 @ 14:55 Rina Schuster Bi-cornate uterus HPI est ob 17 weeks: Details: DIANA RIVAS is a 23 year old who presents for routine OB visit. OB Visit SAI Calculator Estimated Delivery Date 12/10/18 Based on LMP (certain) 03/05/18 Current WG 17w 0d Number 1 Expected Delivery Route/Plan considering Specific Issue/Plans flu vaccine: [] minichart given: given tdap vaccine: [] rhogam: [] LARC form signed: [] labor support person: Renzo pain management: [] cut cord/dad catch: [] : [] PP control planned: [] special requests: [] Initial Weight: 227 lb Date Weight BP Urine PrFHR FuHt Pres MoCTX DilationFetal StVisit NoProviderComments E ot v te GA G Effac lucose ed Visit Notes Visit Date: 07/02/18 no vb cramping scheduled anatomy scan, declines afp screening. Savana Solis MD on 07/02/18 Visit Date: 06/04/18 Nausea better with phenergan. Seldom vomits. Doesn't feel like eating much. No VB, LOF. Confirm FHT with brief US NAOMY Bhatia on 06/04/18 Visit Date: 05/07/18 No visit notes to display ACOG First Trimester First Trimester: Desire for , Alcohol, Tobacco Cessation, Illicit/Recreational Drug/Substance Use, Intimate Partner Violence, Barriers to care, Unstable Housing, Communication Barriers, Environmental/Work Hazards, Anticipated Course of Care, Toxoplasmosis Precations, Use of Any medications, Sexual activity, Exercise, Dental Care, Sauna/Hot tub use, Seat Belt use, Childbirth classes/Hospital facilities, , Travel, Indications for US and Screening for Aneuploidy Diagnostics Diagnostics Labs Blood Type A POSITIVE 05/08/18 Antibody Screen NEGATIVE 05/08/18 Hct 40.2 % (37-47) 05/08/18 Hgb 13.3 g/dl (12.0-15.0) 05/08/18 Pap Smear Negative 02/07/18 Rubella IgG Antibody 43.3 IU/mL 05/08/18 RPR NONREACTIVE (NONREACTIVE) 05/08/18 Hep Bs Antigen Negative (Negative) 05/08/18 Chlam trachomat DNA PCR Negative (Negative) 05/07/18 N.gonorrhoeae DNA (PCR) Negative (Negative) 05/07/18 Glucose 1 Hr 50 gm 128 mg/dL (70-140) 05/08/18 Details: HIV: Urine Culture: Sequential Screen: NIPT Screen: Results [id number] Office Urine Glucose Negative Last Edit by Lorelei Grant on 07/02/18 16:04 Office Urine Protein Negative Last Edit by Lorelei Grant on 07/02/18 16:04 Assessment AND Plan Problems 1. 17 weeks gestation of Z3A.17 declines genetic and NTD screening. anatomy scan ordered. 2. History of delivery, antepartum O34.219 considering , education given 3. BMI 30.0-30.9,adult Z68.30 ordered 1 tm glucola 4. Encounter for supervision of other normal in second trimester Z34.82 PRR SAI 12/10/18 PC January Renzo Plan ACOG trimester education reviewed and updated. see problem list details for updated plan management information and see below for orders placed at this visit. GA appropriate handout given. Orders Orders: Coding Level of Care Code OB Routine Diagnoses 17 weeks gestation of Z3A.17 Weeks of gestation: 17 weeks History of delivery, antepartum O34.219 BMI 30.0-30.9,adult Z68.30 Encounter for supervision of other normal in second trimester Z34.82 Normal : other normal Trimester: second trimester 07/02/18 1630 <Electronically signed by Savana Solis MD> Date Savana Solis MD Cosigner Signature: Date (if applicable) CC: BIOINFORMATICS COMPUTER SCIENTIST OFFICE VISIT Observed: 06/04/2018 Status: F Source: [facility] REPORT 3:25 PM [facility] [address] [place] [address] OFFICE VISIT Date of Service: 06/04/18 MR#: [id number] Acct: [id number] Name: DIANA RIVAS Rep #: [id number] : 1995 Provider: LILLIE Moya Age/Sex: 23/F [place] [facility] [place]: Signed Intake Vital Signs06/04/18 Height 5 ft 9 in 06/04/18 Weight: 220 lb 6 oz 06/04/18 Body Mass Index (BMI) 32.5 06/04/18 Blood Pressure 128/82 Intake Visit Reasons: est ob 13 weeks Chief Complaint: est ob River Expedition Guide Required: No Is patient in pain?: No Allergies No Known Allergies Allergy (Verified 06/04/18 15:03) Medications doxylamine succinate 25 mg tablet 25 mg PO QHS PRN 05/07/18 [History Confirmed 06/04/18] vit 123-iron 28 mg-folic acid 800 [id number] 235 mg capsule 1 cap PO QDAY 05/07/18 [History Confirmed 06/04/18] pyridoxine (vitamin B6) 50 mg tablet 50 mg PO ONCE 05/07/18 [History Confirmed 06/04/18] ranitidine 150 mg tablet 150 mg PO QDAY 05/07/18 [History Confirmed 06/04/18] sertraline 50 mg tablet 50 mg PO QDAY #30 tab 05/25/18 [Rx Confirmed 06/04/18] promethazine 12.5 mg tablet 12.5 mg PO Q6H PRN #60 tab 05/30/18 [Rx Confirmed 06/04/18] Last Menstral Period: 03/05/18 Zika: Zika virus screening: Negative : No PFSH PFSH Medical History Acid reflux (Acute) Anxiety (Acute) Bicornate uterus (Acute) Surgical History H/O section (Acute 2009) Social History adopted: No household members: children housing: apartment number of children: 1 current occupational status: employed current occupation: [employer] pets and animals: Yes pets and animals: cat(s) Smoking Status: Never smoker second hand exposure: No alcohol intake: current alcohol intake frequency: other substance use type: does not use what type of physical activity do you participate in: none seatbelt use: always do you feel safe at home: Yes additional social history: Boyfriend- [facility] Pregancy History 2 Elective abortions Hx Para 1 Spontaneous abortions Past Pregnancies Del. DateName GA/Weeks Outcome Route Bth WeighInfant GeLabor LgtAnesthesiDel LocatProvider FOB t n h a n Delivery Date: 03/16/10 On 05/07/18 @ 14:55 Rina Schuster Bi-cornate uterus HPI est ob 13 weeks: Details: DIANA RIVAS is a 23 year old who presents for routine OB visit. OB Visit SAI Calculator Estimated Delivery Date 12/10/18 Based on LMP (certain) 03/05/18 Current WG 13w 0d Number 1 Expected Delivery Route/Plan considering Specific Issue/Plans flu vaccine: [] minichart given: given tdap vaccine: [] rhogam: [] LARC form signed: [] labor support person: Renzo pain management: [] cut cord/dad catch: [] : [] PP control planned: [] special requests: [] Initial Weight: Not Recorded Date Weight BP Urine PrFHR FuHt Pres MoCTX DilationFetal StVisit NoProviderComments E ot v te GA G Effac lucose ed Visit Notes Visit Date: 06/04/18 Nausea better with phenergan. Seldom vomits. Doesn't feel like eating much. No VB, LOF. Confirm FHT with brief US NAOMY Bhatia on 06/04/18 Visit Date: 05/07/18 No visit notes to display ACOG First Trimester First Trimester: Desire for , Alcohol, Tobacco Cessation, Illicit/Recreational Drug/Substance Use, Intimate Partner Violence, Barriers to care, Unstable Housing, Communication Barriers, Environmental/Work Hazards, Anticipated Course of Care, Toxoplasmosis Precations, Use of Any medications, Sexual activity, Exercise, Dental Care, Sauna/Hot tub use, Seat Belt use, Childbirth classes/Hospital facilities, , Travel, Indications for US and Screening for Aneuploidy Diagnostics Diagnostics Labs Blood Type A POSITIVE 05/08/18 Antibody Screen NEGATIVE 05/08/18 Hct 40.2 % (37-47) 05/08/18 Hgb 13.3 g/dl (12.0-15.0) 05/08/18 Pap Smear Negative 03/03/11 Rubella IgG Antibody 43.3 IU/mL 05/08/18 RPR NONREACTIVE (NONREACTIVE) 05/08/18 Hep Bs Antigen Negative (Negative) 05/08/18 Chlam trachomat DNA PCR Negative (Negative) 05/07/18 N.gonorrhoeae DNA (PCR) Negative (Negative) 05/07/18 Glucose 1 Hr 50 gm 128 mg/dL (70-140) 05/08/18 Details: HIV: Urine Culture: Sequential Screen: NIPT Screen: Results [id number] Office Urine Glucose Negative Last Edit by Joyce Castro on 06/04/18 15:04 Office Urine Protein Negative Last Edit by Joyce Castro on 06/04/18 15:04 Assessment AND Plan Problems 1. Encounter for supervision of other normal in first trimester Z34.81 SAI 12/10/18 PC January Renzo 2. BMI 30.0-30.9,adult Z68.30 ordered 1 tm glucola 3. History of delivery, antepartum O34.219 considering , education given 4. 13 weeks gestation of Z3A.13 Plan Orders placed: anatomy US 19-20 week Continue phenergan prn Declines genetic screening Reviewed of labor precautions, movement/kick counts ACOG trimester education reviewed and updated See problem list details for updated plan of care Gestational age appropriate handout given RTO: 4 weeks Orders Orders: Coding Level of Care Code OB Routine Diagnoses Encounter for supervision of other normal in first trimester Z34.81 Normal : other normal Trimester: first trimester BMI 30.0-30.9,adult Z68.30 History of delivery, antepartum O34.219 13 weeks gestation of Z3A.13 06/04/18 1525 <Electronically signed by Farrah MORALEZ> Date Farrah MORALEZ Cosigner Signature: Date (if applicable) CC: CBC W/DIFF, AUTOMATED Collected: 05/08/2018 Status: F Source: [facility] 10:01 AM [facility] [place] REPOSITORY TYPE CODE TESTS RESULT OUT OF RANGE REFERENCE UNITS LAB L100.1000 4.4-11.0 K/mm3 Normal WBC 9.3 LAB L100.1200 4.2-5.4 M/mm3 Normal RBC 4.28 LAB L100.1300 12.0-15.0 g/dl Normal HGB 13.3 LAB L100.1400 37-47 % Normal HCT 40.2 LAB L100.1500 81-99 fL Normal MCV 93.9 LAB L100.1600 27.0-32.0 pg Normal MCH 31.1 LAB L100.1700 32-36 g/gl Normal MCHC 33.1 LAB L100.1810 11.6-14.6 % Normal RDW CV 12.7 LAB L100.1820 35.1-43.9 fl Normal RDW SD 43.5 LAB L100.1900 150-450 K/mm3 Normal PLT 303 LAB L100.2000 6.2-12.0 fl Normal MPV 8.6 LAB L100.2100 47-70 % High NEUT% 75.5 LAB L100.2200 19-41 % Low LY% 18.3 LAB L100.2300 0-10 % Normal MONO% 5.4 LAB L100.2400 0-5 % Normal EO% 0.6 LAB L100.2500 0-1 % Normal BASO% 0.1 LAB L100.2550 0.0-0.9 % Normal IM GRAN % 0.100 Result Comment: IG% - Immature Granulocytes (promyelocytes, myelocytes and metamyelocytes) > 1% indicates that a LEFT SHIFT is Present. LAB L100.2620 2.0-7.7 X10 3/uL Normal Absolute Neut 7.0 LAB L100.2720 0.83-4.51 X10 3/ul Normal Absolute Lymph 1.70 Performed By: #### L100.0100 #### [facility] [address] [place], [place], [id number] GLUCOSE CHALLENGE GEST Collected: 05/08/2018 Status: F Source: JAMEY 1H 50G 10:01 AM [facility] [place] REPOSITORY Order Comment: Comments: Comments: Draw time: 4:00 TYPE CODE TESTS RESULT OUT OF RANGE REFERENCE UNITS LAB L501.0250 70-140 mg/dL Normal GLU GEST 128 50g 1H Performed By: #### L501.0250, L700.5000 #### [facility] [address] [place], [place], [address] RAPID PLASMIN REAGIN Collected: 05/08/2018 Status: F Source: JAMEY (RPR) 10:01 AM [facility] [place] REPOSITORY TYPE CODE TESTS RESULT OUT OF REFERENCE UNITS RANGE LAB L700.5000 NONREACTIVE NONREACTIVE Normal RPR Performed By: #### L501.0250, L700.5000 #### [facility] [address] [place], [place], [id number] TYPE AND SCREEN Collected: 05/08/2018 Status: F Source: [facility] 10:01 [facility] [place] REPOSITORY Order Comment: Reason for Type AND Screen/Red Cells: TYPE CODE TESTS RESULT OUT OF RANGE REFERENCE UNITS LAB B10.0800 A Normal BLOOD TYPE GEL POSITIVE LAB B100.4000 Normal Antibody NEGATIVE Screen Performed By: #### B101.7450, L509.4000, L3890.6005 #### [facility] [place], [address] #### L3100.0390 #### [facility] (refer to report for specific site) refer to report for address and phone number RUBELLA IGG Collected: 05/08/2018 Status: F Source: [place] 10:01 [facility] [place] REPOSITORY TYPE CODE TESTS RESULT OUT OF RANGE REFERENCE UNITS LAB L509.4000 IU/mL Normal Rubella IgG 43.3 Result Comment: Antibody results Interpretation of Immune Status < 5 IU/ml Presumed Non-immune 5 - < 10 IU/ml Equivocal > or = 10 IU/ml Presumed Immune Performed By: #### B101.7450, L509.4000, L3890.6005 #### [facility] [address] [place] [address], [id number] #### L3100.0390 #### [facility] (refer to report for specific site) refer to report for address and phone number HIV - [facility] Collected: 05/08/2018 Status: F Source: [place] 10:01 [facility] [place] REPOSITORY TYPE CODE TESTS RESULT OUT OF RANGE REFERENCE UNITS LAB L3890.6005 Nonreactive Normal HIV - [facility] Non-Reactive Performed By: #### B101.7450, L509.4000, L3890.6005 #### [facility] [place], [place], [id number] #### L3100.0390 #### [facility] (refer to report for specific site) refer to report for address and phone number HEPATITIS B SURFACE Collected: 05/08/2018 Status: F Source: JAMEY AG 10:01 [facility] [place] REPOSITORY TYPE CODE TESTS RESULT OUT OF RANGE REFERENCE UNITS LAB L3100.0400 Negative Normal HB Negative SURF AG Result Comment: Performed at: - [facility] [id number] Life Skills Consultant: Garland Stuart PhD, Phone: [phone] Performed By: #### B101.7450, L509.4000, L3890.6005 #### [facility] [address] [place], [address] #### L3100.0390 #### [facility] (refer to report for specific site) refer to report for address and phone number CT/NG [facility] BY PCR Collected: 05/07/2018 Status: F Source: [place] 6:16 PM [facility] [place] REPOSITORY TYPE CODE TESTS RESULT OUT OF RANGE REFERENCE UNITS LAB L8200.2100 Negative Normal Chlam Negative Trac PCR LAB L8200.2200 Negative Normal NG by Negative PCR Performed By: #### L8200.2000 #### [facility] [address] [place], [place], [address] Observed: 05/07/2018 Status: F Source: [facility] CULTURE, URINE 6:[address] [facility] Urine Culture ORGANISM 1: Mixed Gram Positive Organisms [place] Count 80,000-100,000 MIX CULTURE Mixed contaminants. Submit a new specimen if indicated. Performed By: #### M100.0650 #### [facility] [address] [place], [place] [address]. [place], [place], [address] BIOINFORMATICS COMPUTER SCIENTIST OFFICE VISIT Observed: 05/07/2018 Status: F Source: JAMEY REPORT 3:58 PM [facility] [place] REPOSITORY [facility] [address] [place], [place] [address]. [address] [place] [address] OFFICE VISIT Date of Service: 05/07/18 MR#: [id number] Acct: [id number] Name: DIANA RIVAS Rep #: [id number] : 1995 Provider: Savana Solis MD Age/Sex: 23/F [place] [facility] [place]: Signed Intake Vital Signs05/07/18 Height 5 ft 9 in 05/07/18 Weight: 227 lb 05/07/18 Body Mass Index (BMI) 33.5 05/07/18 Blood Pressure 126/81 Intake Visit Reasons: NOB - LMP 03/05 River Expedition Guide Required: No Accompanied by: boyfriend Is patient in pain?: No Allergies No Known Allergies Allergy (Verified 05/07/18 14:49) Medications doxylamine succinate 25 mg tablet 25 mg PO QHS PRN 05/07/18 [History Confirmed 05/07/18] vit 123-iron 28 mg-folic acid 800 ndo-oudnf-7m 235 mg capsule 1 cap PO QDAY 05/07/18 [History Confirmed 05/07/18] pyridoxine (vitamin B6) 50 mg tablet 50 mg PO ONCE 05/07/18 [History Confirmed 05/07/18] ranitidine 150 mg tablet 150 mg PO QDAY 05/07/18 [History Confirmed 05/07/18] Last Menstral Period: 03/05/18 Zika: Zika virus screening: Negative : No PFSH PFSH Medical History Acid reflux (Acute) Anxiety (Acute) Bicornate uterus (Acute) Surgical History H/O section (Acute 2009) Social History adopted: No household members: children housing: apartment number of children: 1 current occupational status: employed current occupation: [employer] pets and animals: Yes pets and animals: cat(s) Smoking Status: Never smoker second hand exposure: No alcohol intake: current alcohol intake frequency: other substance use type: does not use what type of physical activity do you participate in: none seatbelt use: always do you feel safe at home: Yes additional social history: [facility] Pregancy History 2 Elective abortions Hx Para 1 Spontaneous abortions Past Pregnancies Del. DateName GA/Weeks Outcome Route Bth WeighInfant GeLabor LgtAnesthesiDel LocatProvider FOB t n h a n Delivery Date: 03/16/10 On 05/07/18 @ 14:55 Rina Schuster Bi-cornate uterus HPI NOB - LMP 03/05: Details: DIANA RIVAS is a 23 year old who presents for New OB visit. OB Visit SAI Calculator Estimated Delivery Date 12/10/18 Based on LMP (certain) 03/05/18 Current WG 9w 0d Number 1 Comments: fht 185 crl 9w3d 23.7mm consistent with LMP Expected Delivery Route/Plan considering Specific Issue/Plans flu vaccine: [] minichart given: [] tdap vaccine: [] rhogam: [] LARC form signed: [] labor support person: [] pain management: [] cut cord/dad catch: [] : [] PP control planned: [] special requests: [] Initial Weight: Not Recorded Date Weight BP Urine PrFHR FuHt Pres MoCTX DilationFetal StVisit NoProviderComments E ot v te GA G Effac lucose ed Menstrual History Last Menstral Period: 03/05/18 Reported LMP: definite Normal amount/duration: Yes On hormonal BC at conception: No Antepartum Record Genetic Screening: Congenital Heart Defect: Other, Neural Tube Defect: Other, Hemoglobinopathy Or Carrier: Other, Cystic Fibrosis: Other, Chromosome Abnormality: Other, Ra-Sachs: Other, Hemophilia: Other, Intellectual Disability/Autism: Other, Recurrent Loss/Stillbirth: Other, Other Structural Defect: Other, Other Genetic Disease: Other, Maternal Metabolic Disorder: Other Infection History: Live with someone with TB or Exposed to TB: No, Patient or Partner has history of Genital Herpes: No, Rash or Viral illness since last mentrual period: No, Prior GBS-Infected child: No, History of STD: No, HIV Infection: No, History of Hepatitis: No, Recent travel outside of [place]: No, Concern for Hep exposure: No, Varicella immune: Yes (vaccinated) Medical History Medical History: Positive: Psychiatric (anxiety- took amitryptiline zoloft), 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), Negative: Diabetes, Hypertension, Heart disease, Auto-immune disorder, Kidney disease/UTI, Neurologic/epilepsy, Depression/ depression, Hepatitis/liver disease, Varicosities/phlebitis, Thyroid dysfunction, Trauma/domestic violence, History of blood transfusions, D (Rh) Sensitized, Pulmonary (e.g.,TB,Asthma), Seasonal allergies, Drug/latex allergies/reactions, Breast, Operations/hospitalizations, Anesthetic complications, History of abnormal pap, Uterine anomaly/aspen, Infertility, Anti-retroviral treatment, Relevant family history, Other ACOG First Trimester First Trimester: Desire for , Alcohol, Tobacco Cessation, Illicit/Recreational Drug/Substance Use, Intimate Partner Violence, Barriers to care, Unstable Housing, Communication Barriers, Environmental/Work Hazards, Anticipated Course of Care, Nurtrition and weight gain, Toxoplasmosis Precations, Use of Any medications, Sexual activity, Exercise, Dental Care, Sauna/Hot tub use, Seat Belt use, Childbirth classes/Hospital facilities, (chose initially with first child), Travel, Indications for US and Screening for Aneuploidy ROS Const Denies fever(s), Reports system reviewed and no additional complaints, except as docu, Reports fatigue Eyes Reports system reviewed and no additional complaints, except as docu ENT Reports system reviewed and no additional complaints, except as docu Card Denies chest pain, Denies shortness of breath Resp Reports system reviewed and no additional complaints, except as docu, Denies shortness of breath, Denies cough GI Reports nausea, Denies abdominal pain Reports system reviewed and no additional complaints, except as docu Musc Reports system reviewed and no additional complaints, except as docu Skin/Breast Reports system reviewed and no additional complaints, except as docu Neuro Yes system reviewed and no additional complaints, except as docu Psych Reports system reviewed and no additional complaints, except as docu Endo Reports fatigue, Reports system reviewed and no additional complaints, except as docu Exam Const General: healthy appearing, comfortable, no acute distress Orientation: alert [facility] Head: normal to inspection, atraumatic, normocephalic Ears: external ears normal, hearing grossly normal bilaterally Nose: nares normal, external nose normal Mouth: oral mucosae normal Teeth and gingiva: dentition normal Eyes General: appearance normal, both eyes and all related structures Neck Neck: no lymphadenopathy, supple, normal visual inspection Thyroid: thyroid normal Chest Chest palpation AND inspection: normal inspection of the chest Breast inspection: normal inspection of the breasts, normal inspection of the axillae Breast palpation: normal palpation of the breasts, normal palpation of the axillae Resp Effort AND Inspection: normal respiratory effort GI Inspection: normal to inspection Palpation: soft, no hepatosplenomegaly General: bladder normal to palpation External Female Exam: normal external appearance, normal appearance of the urethra Urethra: normal appearance of the urethra Speculum Exam - Vagina: normal appearance of the vagina, normal vaginal discharge Speculum Exam - Cervix: normal appearance of the cervix Bimanual Exam- Vagina AND Uterus: bladder normal to palpation, normal bimanual exam, uterus non-tender, other Bimanual Exam- Adnexa, other: adnexae non-tender Skin General: no rashes or lesions noted Neuro Motor: muscle tone normal throughout, no movement abnormalities noted Extrem General: normal to inspection, full ROM Assessment AND Plan Problems 1. Encounter for supervision of other normal in first trimester Z34.81 SAI 12/10/18 PC January Renzo 2. BMI 30.0-30.9,adult Z68.30 ordered 1 tm glucola 3. History of delivery, antepartum O34.219 considering , education given Plan Patient oriented to practice and discussed care expectations and screenings. OG book offered to patient. labs and 19-20 week anatomy ultrasound ordered. see problem list details for plan information. Genetic screening offered to patient and patient chose: discussed options and considering Orders Orders: Supplemental Info ACOG book given and patient encouraged to read about nutrition, exercise, weight gain, and food avoidance in . Coding Level of Care Code OB Routine Diagnoses Encounter for supervision of other normal in first trimester Z34.81 Normal : other normal Trimester: first trimester BMI 30.0-30.9,adult Z68.30 History of delivery, antepartum O34.219 05/07/18 1558 <Electronically signed by Savana Solis MD> Date Savana Solis MD Cosigner Signature: Date (if applicable) CC: PROGRESS Observed: 02/05/2018 Status: COMPLETED Source: [place] 1:45 PM [facility] REPOSITORY O ID: [id number] Author: Meño Healy Service: (none) Author Type: Physician Type: Progress Notes Filed: 02/05/2018 1:54 PM Note Text: CC: Dianayasmine Rivas is a 22 year old female who presents to the office for a well woman examination. HPI: She is currently with malodorous vaginal discharge without color change, comes and goes. She denies any vaginal dryness. She is not currently sexually active. She uses nothing for control. Currently her menstrual cycle is regular flow and is every 28-30 days. She denies irregular bleeding, menorrhagia, menometrorrhagia. She is not on estrogen replacement and has no past history of estrogen replacement. PAST MEDICAL HISTORY Diagnosis Date - Depression - Menarche age 9 - PMH - PAST MEDICAL HISTORY OF 09/07/2010 Normal Color Vision - Vitamin D deficiency PAST SURGICAL HISTORY Procedure Laterality Date - DELIVERY ONLY 01/14/2010 , low transverse, daughter Steph Social History: Social History Substance Use Topics - Smoking status: Never Smoker - Smokeless tobacco: Never Used - Alcohol use No FAMILY HISTORY Problem Relation Age of Onset - Hypertension Maternal Grandmother - Diabetes Maternal Grandmother diet controlled - Cancer Maternal Grandmother Pancreatic/Liver/Uterine - Thyroid Maternal Grandmother - Heart Other Acute GA at age 35 - Thyroid Maternal Aunt Current Outpatient prescriptions: sertraline (ZOLOFT) 25 mg tablet Take 1 tablet by mouth daily at bedtime. buPROPion XL (WELLBUTRIN XL) 150 mg 24 hr tablet Take 1 tablet by mouth once daily. metroNIDAZOLE (FLAGYL) 500 mg tablet Take 1 tablet by mouth twice daily for 7 days. Levonorgestrel-Ethinyl Estrad (AVIANE) 0.1mg - 20mcg per tablet Take 1 tablet by mouth once daily. Allergies: ALLERGIES No Known Allergies ROS: See HPI PE: 02/05/18 1305 BP: 120/70 Pulse: 80 Resp: 20 Temp: 36.7 ?C (98 ?F) TempSrc: Left Tympanic Weight: 102.5 kg (226 lb) Height: 174 cm (5' 8.5) Gen: AANDO, NAD, non-toxic appearing, Pleasant, cooperative HEENT: NT/AC, PERRLA, EOMs intact b/l, nares clear and patent b/l, pharynx without erythema, exudate or lesions. Uvula midline. EACs without erythema or debris. TMs pearly membreno with intact landmarks b/l. Neck: supple, No cervical LAD, no thyromegaly, no carotid bruits CV: RRR, normal S1 and S2, no murmurs, no gallops, no rubs, Pulses 2+ and symmetric in UE and LE b/l Lungs: normal respiratory effort, CTA b/l, no wheezing or rhonchi or rales Abd: soft, NT, ND, +BS, no hepatosplenomegaly Breasts: large size without any skin abnormalities or skin lesions. Nipples without skin changes, drainage or bleeding. No lumps or masses or pain on examination. No axillary LAD. Genitourinary: Urethral meatus intact without lesions externally, External genitalia appear normal without atrophy or lesions. Vagina is normal appearing, pink, without lesions except for malodorous vaginal discharge., no pain during examination. Cervix appears normal without bleeding, + whitish clear discharge. Bimanual examination reveals uterus to be mobile, normal size and non tender. No adnexal tenderness b/l. Skin: warm, dry, intact, No rashes or lesions on exposed skin. ASSESSMENT/PLAN: 1. Well woman exam with routine gynecological exam - ICD9: V72.31, ICD10: Z01.419 (primary diagnosis) - Completed pelvic and breast exam - Encouraged monthly BSE - Increase calcium intake with supplements or by diet (goal of 3869-3198 mg/day - Follow up for annual exam in one year. - PAP FLUID CERVICAL SCREENING 2. Vaginal discharge - ICD9: 623.5, ICD10: N89.8 - likely BV, rx as below - METRONIDAZOLE 500 MG TABLET Meño Healy DO To ER if develops chest pain, shortness of breath, or severe worsening of symptoms. Discussed risks, benefits, alternatives, and potential side effects of medications. Patient expressed understanding and agreed with the plan. Meño Healy DO [address] [place] [address] CYTOLOGY Observed: 02/05/2018 Status: F Source: [facility] 1:43 PM [facility] REPOSITORY Specimen originated from [facility] Specimen #: [id number] Submitting Physician: MEÑO HEALY DO SPECIMEN SUBMITTED A: CERVICAL, SCREENING, FLUID FINAL DIAGNOSIS A. CERVICAL, SCREENING, FLUID Satisfactory for interpretation. Negative for intraepithelial lesion or malignancy. Predominance of coccobacilli consistent with shift in vaginal ria. This specimen has been analyzed by the ThinPrep Imaging System, an automated imaging and review system, which assists the laboratory in evaluating cells on ThinPrep Pap tests. Following automated imaging, selected sim from every slide are reviewed by a land degradation analyst. ELISEO Heanr(ASCP) (Electronic Signature) CLINICAL DATA ROUTINE EXAM, HPV Testing: Yes, Reflex HPV for ASCUS Date of Last Menstrual Period: 01/14/2018 STAINS A: CERVICAL, SCREENING, FLUID THIN PREP CLAIM REP Lauren De La Fuente M.D., Mud Tank Operator Date of Report: 02/14/2018 Date of Procedure: 02/05/2018 Date of Receipt: 02/06/2018 Submitted by: MEÑO HEALY DO Location: [facility] Diagnostic interpretation performed at [facility], [address] [place] [address]. The Pap Smear is a screening test for cervical cancer. False negative results occur with all screening tests, emphasizing the need for rescreening at recommended intervals, and clinical correlation. CNOV Observed: 02/05/2018 Status: COMPLETED Source: [facility] 1:00 PM [facility] REPOSITORY Office Visit (FAMPWS) DIANA RIVAS ([id number]) 1995 F Date Time Provider Department 02/05/18 1:00 PM [facility] During your visit today, we recorded the following information about you: Temperature Pulse Respiration Blood pressure 98 degrees 80/minute 20/minute 120/70 Weight Height Last Period 102.5 kg 1.74 m 01/14/18 Meño Healy DO 02/05/2018 1:54 PM Signed CC: Diana Rivas is a 22 year old female who presents to the office for a well woman examination. HPI: She is currently with malodorous vaginal discharge without color change, comes and goes. She denies any vaginal dryness. She is not currently sexually active. She uses nothing for control. Currently her menstrual cycle is regular flow and is every 28-30 days. She denies irregular bleeding, menorrhagia, menometrorrhagia. She is not on estrogen replacement and has no past history of estrogen replacement. PAST MEDICAL HISTORY Diagnosis Date - Depression - Menarche age 9 - PMH - PAST MEDICAL HISTORY OF 09/07/2010 Normal Color Vision - Vitamin D deficiency PAST SURGICAL HISTORY Procedure Laterality Date - DELIVERY ONLY 01/14/2010 , low transverse, daughter Steph Social History: Social History Substance Use Topics - Smoking status: Never Smoker - Smokeless tobacco: Never Used - Alcohol use No FAMILY HISTORY Problem Relation Age of Onset - Hypertension Maternal Grandmother - Diabetes Maternal Grandmother diet controlled - Cancer Maternal Grandmother Pancreatic/Liver/Uterine - Thyroid Maternal Grandmother - Heart Other Acute GA at age 35 - Thyroid Maternal Aunt Current Outpatient prescriptions: sertraline (ZOLOFT) 25 mg tablet Take 1 tablet by mouth daily at bedtime. buPROPion XL (WELLBUTRIN XL) 150 mg 24 hr tablet Take 1 tablet by mouth once daily. metroNIDAZOLE (FLAGYL) 500 mg tablet Take 1 tablet by mouth twice daily for 7 days. Levonorgestrel-Ethinyl Estrad (AVIANE) 0.1mg - 20mcg per tablet Take 1 tablet by mouth once daily. Allergies: ALLERGIES No Known Allergies ROS: See HPI PE: 02/05/18 1305 BP: 120/70 Pulse: 80 Resp: 20 Temp: 36.7 ?C (98 ?F) TempSrc: Left Tympanic Weight: 102.5 kg (226 lb) Height: 174 cm (5' 8.5ANDquot;) Gen: AANDamp;O, NAD, non-toxic appearing, Pleasant, cooperative HEENT: NT/AC, PERRLA, EOMs intact b/l, nares clear and patent b/l, pharynx without erythema, exudate or lesions. Uvula midline. EACs without erythema or debris. TMs pearly membreno with intact landmarks b/l. Neck: supple, No cervical LAD, no thyromegaly, no carotid bruits CV: RRR, normal S1 and S2, no murmurs, no gallops, no rubs, Pulses 2+ and symmetric in UE and LE b/l Lungs: normal respiratory effort, CTA b/l, no wheezing or rhonchi or rales Abd: soft, NT, ND, +BS, no hepatosplenomegaly Breasts: large size without any skin abnormalities or skin lesions. Nipples without skin changes, drainage or bleeding. No lumps or masses or pain on examination. No axillary LAD. Genitourinary: Urethral meatus intact without lesions externally, External genitalia appear normal without atrophy or lesions. Vagina is normal appearing, pink, without lesions except for malodorous vaginal discharge., no pain during examination. Cervix appears normal without bleeding, + whitish clear discharge. Bimanual examination reveals uterus to be mobile, normal size and non tender. No adnexal tenderness b/l. Skin: warm, dry, intact, No rashes or lesions on exposed skin. ASSESSMENT/PLAN: 1. Well woman exam with routine gynecological exam - ICD9: V72.31, ICD10: Z01.419 (primary diagnosis) - Completed pelvic and breast exam - Encouraged monthly BSE - Increase calcium intake with supplements or by diet (goal of 7828-8329 mg/day - Follow up for annual exam in one year. - PAP FLUID CERVICAL SCREENING 2. Vaginal discharge - ICD9: 623.5, ICD10: N89.8 - likely BV, rx as below - METRONIDAZOLE 500 MG TABLET Meño Healy DO To ER if develops chest pain, shortness of breath, or severe worsening of symptoms. Discussed risks, benefits, alternatives, and potential side effects of medications. Patient expressed understanding and agreed with the plan. 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 [50] Primary Visit Diagnosis:Well woman exam with routine gynecological exam [Z01.419] Other Visit Diagnosis:Vaginal discharge [N89.8] Order(s):PAP FLUID CERVICAL SCREENING [[id number]] Order #: [id number] metroNIDAZOLE (FLAGYL) 500 mg tabletTake 1 tablet by mouth twice daily for 7 days.Disp: 14 tabletRfl: 0 Prescriptions as of 02/05/2018 Sig: SERTRALINE 25 MG TABLET Take 1 tablet by mouth daily * BUPROPION XL 150 MG TAB Take 1 tablet by mouth once d* METRONIDAZOLE 500 MG TABLET Take 1 tablet by mouth twice * LEVONORGESTREL-ETHINYL ESTRAD* Take 1 tablet by mouth once d* Problem List As Of Date 02/05/2018 Noted Resolved Depression [F32.9] INVALID FOR* Fatigue [R53.83] INVALID FOR* Weight gain [R63.5] INVALID FOR* Obesity (BMI 30.0-34.9) [E66.9] INVALID FOR* Vitamin D deficiency [E55.9] INVALID FOR* Low HDL (under 40) [E78.6] INVALID FOR* Chronic tension-type headache, not intractable *INVALID FOR* Prescriptions ordered this encounter Disp Refills Start End METRONIDAZOLE 500 MG TABLET 14 t* 0 02/05/2018 02/12/2018 Route: ORAL Sig: Take 1 tablet by mouth twice daily for 7 days. Medications Discontinued During This Encounter ondansetron orally disintegrating (Z* 12 t* 0 04/29/2016 02/05/2018 Route: ORAL Sig: Take 1 tablet by mouth every 6 hours as needed for Nausea/Vomiting. Disc: Reason for discontinue is not on file. Encounter Status:Closed by MEÑO HEALY DO on 02/05/18 Observed: 12/29/2017 Status: F Source: [facility] URINE CULTURE 12:23 PM [facility] REPOSITORY Sp. Request/Comment: - Specimen received in preservative Culture Result - 10,000 - <50,000 CFU/ml Lactose positive gram negative bacilli --> ABNORMAL ALERT Insignificant colony count. No further workup. --> ABNORMAL ALERT 10,000 - <50,000 CFU/ml Normal urogenital ria Performed By: #### URCUL #### [facility] [address] [place], [place] [address] PROGRESS Observed: 12/29/2017 Status: COMPLETED Source: [facility] 12:22 PM [facility] REPOSITORY HNO ID: [id number] Author: Alysha Granda Service: (none) Author Type: Physician Forms Analyst Type: Progress Notes Filed: 12/29/2017 2:56 PM Note Text: 12/29/2017 Patient presents with: burning and frequency with urination: x 3 days SUBJECTIVE: This is a 22 year old that is here today for Complaint(s) of dysuria and urinary frequency x 3 days. + lower abdominal pressure. Denies fever/chills, abdominal pain, back pain. PAST MEDICAL HISTORY Diagnosis Date - Depression - Menarche age 9 - PMH - PAST MEDICAL HISTORY OF 09/07/2010 Normal Color Vision - Vitamin D deficiency ALLERGIES Review of patient's allergies indicates no known allergies. MEDICATIONS Current Outpatient Prescriptions: sertraline (ZOLOFT) 25 mg tablet Take 1 tablet by mouth daily at bedtime. buPROPion XL (WELLBUTRIN XL) 150 mg 24 hr tablet Take 1 tablet by mouth once daily. Levonorgestrel-Ethinyl Estrad (AVIANE) 0.1mg - 20mcg per tablet Take 1 tablet by mouth once daily. ondansetron orally disintegrating (ZOFRAN ODT) 4 mg disintegrating tablet Take 1 tablet by mouth every 6 hours as needed for Nausea/Vomiting. No current facility-administered medications for this visit. SOCIAL HISTORY Social History Marital status: Single Spouse name: Years of education: Number of children: 1 Occupational History Occupation Employer Comment [employer]* Social History Main Topics Smoking status: Never Smoker Smokeless status: Never Used Alcohol use: No Drug use: No Sexual activity: Yes Partners with: Male control/protection: Pill Social History Narrative Daughter Steph ( 01/2010), engaged 10/2013 REVIEW OF SYSTEMS All other reviewed and negative other than HPI. OBJECTIVE: BP 114/70 Pulse 72 Temp 36.3 ?C (97.4 ?F) (Tympanic) Resp 18 Wt 101.4 kg (223 lb 9.6 oz) BMI 33.21 kg/m2 APPEARANCE Well appearing, alert, in no acute distress, well-hydrated, well nourished. BACK no cva TTP ABDOMEN soft, non-tender. ASSESSMENT/PLAN: 1. Burning with urination - ICD9: 788.1, ICD10: R30.0 acute - UA positive for rachele esterase and hematuria - Send urine for culture - Begin treatment with Bactrim DS BID for 5 days - Patient education for prevention given - UA DIP B/O - URINE CULTURE - SULFAMETHOXAZOLE 800 MG-TRIMETHOPRIM 160 MG TABLET - PHENAZOPYRIDINE 200 MG TABLET The patient indicates understanding of these issues and agrees with the plan. Reviewed red flags and when to seek care sooner. Alysha Granda PA-C ALLERGIES ALLERGIES DATE TYPE / CODE NAME / CODE REACTION SEVERITY SOURCE 10/15/2018 Drug No Known Unknown [place] Allergy/146287810(S Allergies/F0019 Community NOMED [place]) [address](RXNORM) Hospital Repository NG/013167098(SNOMED NO KNOWN [facility]GIES [facility] Repository Miscellaneous NO KNOWN [facility] Allergy/737510368(S ALLERGIES [facility] Hospital Repository Drug NO KNOWN [place] Class/549682056(SNO ALLERGIES [facility]) [place] Repository ENCOUNTERS ENCOUNTERS ADMIT/DISCHARGE ACCOUNT NUMBER ADMITTING ENCOUNTER LOCATION SOURCE CLASS 10/15/2018 [id number] Ambulatory BMSBuilding: [place] BMS.[facility] Repository 10/15/2018 [id number] Ella Solis BMSBuilding: [place] BMS.[facility] Repository 10/15/2018 [id number] Ella Solis BMSBuilding: [place] BMS.[facility] Repository 10/15/2018 [id number] Will Ambulatory BMSBuilding: [place] BMS.[facility] Repository 10/15/2018 [id number] Will Ambulatory BMSBuilding: [place] BMS.[facility] Repository 10/15/2018 [id number] Will Ambulatory BMSBuilding: [place] BMS.[facility] Repository 10/15/2018 [id number] Will Ambulatory BMSBuilding: [place] BMS.[facility] Repository 10/15/2018 [id number] Ella Solis BMSBuilding: [place] BMS.CF.[facility] Repository 10/15/2018 [id number] Rajendramilena, Inpatient [place] [facility] ding:WPRoom: Repository HW072Xek: 1 10/12/2018/10/12/20 [id number] Ambulatory Building:[address] Repository 10/12/2018/10/12/20 [id number] Ambulatory Building:[address] Repository 10/08/2018/10/08/20 [id number] [facility]patient [place] 18 [facility], Encounter Clinic Other [facility] Repository 10/08/2018/10/08/20 [id number] JAYA, Ambulatory [address] Repository [place] ng:DELRoom: KN62Qoc: 01 10/03/2018/10/03/20 [id number] Ambulatory Building:[address] Repository 10/03/2018/10/03/20 [id number] Ambulatory Building:[address] Repository 10/03/2018/10/03/20 [id number] Ambulatory Building:[address] Repository 10/01/2018 [id number] Ambulatory [facility] ding:LABSPEC Repository 10/01/2018/10/01/20 [id number] Ambulatory BMSBuilding: [place] 18 [facility] Repository 09/17/2018 [id number] Ambulatory BMSBuilding: [place] BMS.CF.[facility] Repository 09/17/2018/09/17/20 [id number] Ambulatory BMSBuilding: [place] 18 [facility] Repository 09/14/2018/09/14/20 [id number] Ambulatory Building:[address] Repository 09/12/2018 [id number] Ambulatory [facility] Repository CENTERBuildi ng:AKFEC 09/11/2018/09/14/20 [id number] EHRENBERG Inpatient [place] 18 [place], Encounter Clinic [place] [facility] Repository 09/11/2018/09/14/20 [id number] JAYA, Inpatient [address] MEDICAL Repository CENTERBuildi nBRoom: 2419Bed: 09/11/2018/09/11/20 [id number] Ambulatory [address] ding:WPOUTRo Repository om: WP014 09/08/2018/09/08/20 [id number] Ambulatory [address] ding:WPOUTRo Repository om: WP012 09/03/2018 [id number] Ambulatory [facility] ding:LABSPEC Repository 09/03/2018 [id number] Ambulatory [facility] ding:LAB Repository 09/03/2018/09/03/20 [id number] Ambulatory BMSBuilding: [place] 18 BMS.[facility] Repository 09/03/2018 [id number] Ambulatory Building:[facility] Repository 08/20/2018 [id number] Ambulatory BMSBuilding: [place] BMS.CF.[facility] Repository 08/20/2018/08/20/20 [id number] Ambulatory [address] [facility] Repository om: WP013 08/06/2018/08/06/20 [id number] Ambulatory BMSBuilding: [place] 18 BMS.[facility] Repository 08/06/2018/08/06/20 [id number] Ambulatory Building:[address] Repository 08/06/2018/08/06/20 [id number] Ambulatory Building:[address] Repository 07/17/2018 [id number] Ambulatory [facility] ding:OPUS Repository 07/02/2018/07/02/20 [id number] Ambulatory BMSBuilding: [place] 18 BMS.[facility] Repository 06/04/2018/06/04/20 [id number] Ambulatory BMSBuilding: [place] 18 BMS.[facility] Repository 05/08/2018 [id number] Ambulatory [facility] ding:LAB Repository 05/07/2018/05/07/20 [id number] Ambulatory BMSBuilding: [place] 18 BMS.[facility] Repository 02/07/2018 [id number] Ambulatory BMS [facility] Repository 02/05/2018/02/07/20 [id number] Ambulatory [address] Repository 12/29/2017/01/02/20 [id number] Ambulatory [address] Repository PAYERS PAYERS ENCOUNTER GUARANTOR PAYER SUBSCRIBER SOURCE 10/15/2018 DIANA Bradley Primary JUAN R ELLIOTTDOB: [place] [id number] Insurance:ANTHEMPolic [id number] Community CARRIAGE y Number: [place], [place] [id number] Repository [address]Nua: (330) Date:9194-41-90YJ [phone] () [id number] [place] [address]YY: 10/15/2018 Secondary NOT GIVENUNK [place] Insurance:SELF PAY Community [facility] Number: Effective Repository Date:2018-10-15 10/15/2018 DIANA Bradley Primary JUAN R ELLIOTTDOB: [place] [id number] Insurance:ANTHEMPolic [id number] Community CARRIAGE y Number: [place], [place] [id number] Repository [address]Yrd: (330) Date:0768-83-09SG [phone] () [id number], [place] [address]SJ: 10/15/2018 Secondary NOT GIVENUNK [place] Insurance:SELF PAY Community [facility] Number: Effective Repository Date:2018-10-15 10/15/2018 DIANA Bradley Primary JUAN R ELLINDIGOTTDOB: [place] [id number] Insurance:ANTHEMPolic [id number] Community CARRIAGE y Number: [place], [place] [id number] Repository [address]Jnv: (330) Date:4119-43-40HK [phone] () [place], [place] [address]YY: 10/15/2018 Secondary NOT GIVENUNK [place] Insurance:SELF PAY Community [facility] Number: Effective Repository Date:2018-10-15 10/15/2018 DIANA Bradley Primary JUAN R ELLINDIGOTTDOB: [place] [id number] Insurance:ANTHEMPolic [id number] Community CARRIAGE y Number: [place], [place] [id number] Repository [address]Bew: (330) Date:8642-35-23TT [phone] () [address] [place] [address] [place] [address]OZ: 10/15/2018 Secondary NOT GIVENUNK [place] Insurance:SELF PAY Community [facility] Number: Effective Repository Date:2018-10-15 10/15/2018 DIANA Kirk Primary JUAN R ELLINDIGOTTDOB: [place] [id number] Insurance:ANTHEMPolic [id number] Community CARRIAGE y Number: [place], [place] [id number] Repository [address]Ffi: (330) Date:5805-69-78CQ [phone] () [address] [place] [address] [place] [address]AA: 10/15/2018 Secondary NOT GIVENUNK [place] Insurance:SELF PAY Community [facility] Number: Effective Repository Date:2018-10-15 10/15/2018 DIAAN Kirk Primary JUAN R EVELYNDOB: [place] [id number] Insurance:ANTHEMPolic [id number] Community CARRIAGE y Number: [place], [place] [id number] Repository [address]Xdn: (330) Date:0567-25-25AE [phone] () [address] [place] [address] [place] [address]GM: 10/15/2018 Secondary NOT GIVENUNK [place] Insurance:SELF PAY Community [facility] Number: Effective Repository Date:2018-10-15 10/15/2018 DIANA Bradley Primary JUAN R ELLCHAITANYADOB: [place] [id number] Insurance:ANTHEMPolic [id number] Community CARRIAGE y Number: [place], [place] [id number] Repository [address]Mlw: (330) Date:5355-25-82WZ [phone] () [address] [place] [address]JV: 10/15/2018 Secondary NOT GIVENUNK [place] Insurance:SELF PAY Community [facility] Number: Effective Repository Date:2018-10-15 10/15/2018 PARROTT N Primary JUAN R ELLIOTTDOB: [place] [id number] Insurance:ANTHEMPolic [id number] Community CARRIAGE y Number: [facility] [place] [id number] Repository [address]Qeh: (330) Date:7340-69-37GI [phone] () [id number] [place] [address]YT: 10/15/2018 Secondary NOT GIVENUNK [place] Insurance:SELF PAY [facility] Number: Effective Repository Date:2018-10-15 10/15/2018 [facility] Primary JUAN R ELLIOTTDOB: [place] [id number] Insurance:ANTHEMPolic [id number] Community CARRIAGE y Number: [place], [place] [id number] Repository [address]Lhx: (330) Date:8812-62-74WA [phone] () [address] [place] [address]FY: 10/15/2018 Secondary NOT GIVENUNK [place] Insurance:SELF PAY [facility] Number: Effective Repository Date:2018-10-15 10/12/2018 [facility] ELLIOTTDOB: Insurance:ANTHEMPolic [id number] Hospital y Number: [place]RI[place] Repository [place] [id number] [place] Date: [address]Npj: () 10/12/2018 [facility] ELLIOTTDOB: [facility] ELLIOTTDOB: Insurance:ANTHEMPolic [id number] Hospital y Number: [place] Repository [place] [id number] [place] Date: (HP) 10/08/2018 [facility]: Insurance:[facility]: [facility]: [id number] Repository [place] [id number] [place] Date: [id number]: (HP) 10/03/2018 [facility] [id number] [facility] y Number: [place]RI[place] Repository [place] [id number] [place] Date: [address]Tel: (HP) 10/03/2018 [facility]: [facility]: [facility] [id number] [facility] y Number: CARRIAGE Repository [place] [id number] [place] Date: () 10/03/2018 [facility] [id number] [facility] y Number: CARRIAGE Repository [place] [id number] [place] Date: 691Tel: (HP) 10/01/2018 [facility] [place] [id number] [facility] [id number] Community CARRIAGE y Number: Hospital [place] [id number] Repository 90333Fhm: (330) Date:1992-23-23EH [phone] () [id number], [place] [address]GA: 10/01/2018 Secondary NOT GIVENUNK Jamey Insurance:SELF PAY [facility] Number: Effective Repository Date:2018-10-01 10/01/2018 DIANA Bradley Primary JUAN R ELLIOTTDOB: [place] [id number] Insurance:ANTHEMPolic [id number] Community CARRIAGE y Number: [place], [place] [id number] Repository 19969Eob: (330) Date:6403-17-41JH [phone] () [address] [place] [address] 415[address]JS: 10/01/2018 Secondary NOT GIVENUNK Jamey Insurance:SELF PAY [facility] Number: Effective Repository Date:2018-10-01 09/17/2018 DIANA Braldey Primary NOT GIVENUNK [place] [id number] Insurance:SELF PAY Community [place] Number: Effective Repository 40742Zai: (330) Date:2018-09-17 [phone] () 09/17/[address] [facility] JUAN R ELLIOTTDOB: Jamey [id number] Insurance:ANTHEMPolic [id number] Community CARRIAGE y Number: [place], [place] [id number] Repository [address]1029Vcg: (330) Date:5824-02-36FN [phone] () [address] [place] [address] 46117MT: 09/17/2018 Secondary NOT GIVENUNK [place] Insurance:SELF PAY [facility] Number: Effective Repository Date:2018-09-17 09/14/2018 [facility] ELLIOTTDOB: Insurance:ANTHEMPolic [id number] [facility] [id number] y Number: CARRIAGE Repository CARRIAGE [id number] [place], [place] Date: [address] 39868Rty: () 09/11/2018 [facility] Primary [facility] General ELLIOTTDOB: Insurance:BLUE ACCESS THOMPSONDOB: [facility] OPolicy Number: [id number] Repository CARRIAGE [id number] [place], [place] Date: [address]Bbk: () 09/11/2018 DIANA Bradley Primary JUAN R RIVASDOB: [place] [id number] Insurance:ANTHEMPolic [id number] Community CARRIAGE y Number: [place], [place] [id number] Repository 82871Kwj: (330) Date:9120-46-99XQ [phone] () [address] [place] [address] [place] [address]AS: 09/11/2018 Secondary NOT GIVENUNK Jamey Insurance:SELF PAY [facility] Number: Effective Repository Date:2018-09-11 09/08/2018 DIANA Bradley Primary JUAN R RIVASDOB: Jamey [id number] Insurance:ANTHEMPolic [id number] Community CARRIAGE y Number: [place], [place] [id number] Repository 879[address]Yaf: (330) Date:9770-41-24CD [phone] () [address] [place] [address] [place] [address]XA: 09/08/2018 Secondary NOT GIVENUNK [place] Insurance:SELF PAY [facility] Number: Effective Repository Date:2018-09-08 09/03/2018 DIANA Bradley Primary JUAN R RIVASDOB: Jamey [id number] Insurance:ANTHEMPolic [id number] Community CARRIAGE y Number: [place] [id number] Repository 59356Xnn: (330) Date:3865-97-63GW [phone] () [address] [place] [address] [place] 07[address]DS: 09/03/2018 Secondary NOT GIVENUNK Jamey Insurance:SELF PAY [facility] Number: Effective Repository Date:2018-09-03 09/03/2018 DIANA Bradley Primary JUAN R EVELYNDOB: Jame[place] [id number] Insurance:ANTHEMPolic [id number] Community CARRIAGE y Number: [facility] [place] [id number] Repository 67[address]Zun: (330) Date:4343-85-65VB [phone] () [id number] [place] [address]JK: 09/03/2018 Secondary NOT GIVENUNK Jamey Insurance:SELF PAY [facility] Number: Effective Repository Date:2018-09-03 09/03/2018 [facility] Primary JUAN R ELLIOTTDOB: [place] [id number] Insurance:ANTHEMPolic [id number] Community CARRIAGE y Number: [place] [id number] Repository [address]Itk: (330) Date:7266-76-34IM [phone] () [id number] [place] [address]PX: 09/03/2018 Secondary NOT GIVENUNK [place] Insurance:SELF PAY Community [facility] Number: Effective Repository Date:2018-09-03 09/03/2018 [facility] ELLIOTTDOB: [facility] ELLIOTTDOB: Insurance:ANTHEMPolic [id number] [facility] y Number: CARRIAGE Repository CARRIAGE [id number] [place] Date: [phone]: () 08/20/2018 [facility] Primary Juan R ElliottDOB: [place] [id number] Insurance:ANTHEMPolic [id number] Community CARRIAGE y Number: [place], [place] [id number] Repository 809[address]Wxb: (330) Date:9451-74-16DZ [phone] () [place], [place] [address]XS: 08/20/2018 Secondary NOT GIVENUNK [place] Insurance:SELF PAY Community [facility] Number: Effective Repository Date:2018-08-20 08/20/2018 [facility] Primary JUAN R ELLIOTTDOB: Jamey [id number] Insurance:ANTHEMPolic [id number] Community CARRIAGE y Number: [facility] [place] [id number] Repository 806[address]Ypw: (330) Date:7912-31-94QQ [phone] () [address] [place] [address]VI: 08/20/2018 Secondary NOT GIVENUNK Jamey Insurance:SELF PAY [facility] Number: Effective Repository Date:2018-08-20 08/06/2018 [facility] Primary Juan R ElliottDOB: [place] [id number] Insurance:ANTHEMPolic [id number] Community CARRIAGE y Number: [place], [place] [id number] Repository 14000Zmk: (330) Date:7121-21-83ZT [phone] () [id number] [place] [address] 125[address]LQ: 08/06/2018 Secondary NOT GIVENUNK [place] Insurance:SELF PAY [facility] Number: Effective Repository Date:2018-07-23 08/06/2018 [facility] ELLIOTTDOB: [facility] ELLIOTTDOB: Insurance:ANTHEMPolic [id number] Hospital y Number: CARRIAGE Repository [place]RI[place] [id number] [place] Date: [address]Tel: () 08/06/2018 [facility] ELLIOTTDOB: [facility] ELLIOTTDOB: Insurance:ANTHEMPolic [id number] [facility] y Number: CARRIAGE Repository CARRIAGE [id number] [place] Date: () 07/17/2018 [facility] Primary Juan R ElliottDOB: Jamey [id number] Insurance:ANTHEMPolic [id number] Community CARRIAGE y Number: [facility] [place] [place] [id number] Repository 624[address]Bqe: (330) Date:5819-86-06YV [phone] () [address] [place] [address] [place] [address]OP: 07/17/2018 Secondary NOT GIVENUNK Jamey Insurance:SELF PAY [facility]: Effective Repository Date:2018-06-05 07/02/2018 DIANA N Primary Juan R ElliottDOB: [place] [id number] Insurance:ANTHEMPolic [id number] Community CARRIAGE y Number: [place], [place] [id number] Repository 428[address]Guy: (330) Date:2628-00-75YX [phone] () [address] [place] [address] [place] [address]CI: 07/02/2018 Secondary NOT GIVENUNK Jamey Insurance:SELF PAY Community [facility] Number: Effective Repository Date:2018-06-29 06/04/2018 PARROTT N Primary Juan R ElliottDOB: [place] [id number] Insurance:ANTHEMPolic [id number] Community CARRIAGE y Number: [place] [id number] Repository 37[address]Woe: (330) Date:1713-27-37LC [phone] () [address] [place] [address] [place] 000[address]BV: 06/04/2018 Secondary NOT GIVENUNK Jamey Insurance:SELF PAY Community [facility] Number: Effective Repository Date:2018-06-04 05/08/2018 PARROTT N Primary Juan R ElliottDOB: Jamey [id number] Insurance:ANTHEMPolic [id number] Community CARRIAGE y Number: [place] [id number] Repository 77436Hzn: (330) Date:4683-57-45JI [phone] () [place], [place] [address]MV: 05/08/2018 Secondary NOT GIVENUNK [place] Insurance:SELF PAY Community [facility] Number: Effective Repository Date:2018-05-07 05/07/2018 DIANA Primary Juan R ElliottDOB: Jamey [id number] Insurance:ANTHEMPolic [id number] Community CARRIAGE y Number: [place], [place] [id number] Repository 15724Awd: (330) Date:7003-79-10TN [phone] () [address]XZXQSMQ, [place] [address]VK: 05/07/2018 Secondary NOT GIVENUNK Jamey Insurance:SELF PAY Community [facility] Number: Effective Repository Date:2018-04-03 02/07/2018 DIANA N Primary [facility] ElliottDOB: [place] [id number] Insurance:ANTHEMPolic [id number] Community CARRIAGE y Number: [place], [place] [id number] Repository 54886Bau: (330) Date:6078-41-59YF [phone] () [address]45[address]ASGHSHB, [place] [address]LX: 02/07/2018 Secondary NOT GIVENUNK [place] Insurance:SELF PAY [facility] Number: Effective Repository Date:2018-02-07
== END ==
PROVIDERS: Family Provider Student in an Organized Health Care Education/Training Program; PCP Student in an Organized Health Care Education/Training Program; Referring Provider Nurse Practitioner Women's Health; Visit Provider Nurse Practitioner Women's Health
DX: N39.0 Urinary tract infection, site not specified (principal)
CPT/HCPCS: 87086; 87088

== ENCOUNTER 2018-10-15 08:15 | Inpatient (IN) | payer BC, MEDICAID, SELFPAY ==
[2018-10-01 15:56] VITALS: BMI 33.5
[2018-10-15 08:21] VITALS: BMI 33.3
--- NOTE | 2018-10-15 08:50 | US_ITS ---
STUDY: OBSTETRICAL ULTRASOUND - BIOPHYSICAL PROFILE REASON FOR EXAM: Female, 23 years old. well-being. LMP: March 05, 2018. PRIOR ULTRASOUND: Comparison is made with prior study dated September 11, 2018. TECHNIQUE: Transabdominal TECHNICAL QUALITY: Adequate. FINDINGS: There is a single intrauterine fetus. The fetus is in a cephalic presentation. There is demonstrated cardiac activity with a heart rate of 147 bpm. There is a normal amniotic fluid volume. The largest amniotic fluid pocket measures 7.2 cm x 9.7 cm. The amniotic fluid index (ALTAF) is 14 cm. The placenta is anterior in location and is not low lying. There are Grade 2 placental changes. Gender: Male BIOPHYSICAL PROFILE: Breathing Movements (FBM): 2 Gross Body Movements (GBM): 2 Tone (FT): 2 Amniotic Fluid Volume (AFV): 2 TOTAL SCORE: 8 / 8 US/Biophysical Profile IMPRESSION: Normal biophysical profile of 06/13. Electronically Signed: Karthikeyan Kruse MD at 11:22 EST Tel [phone], Service support ,
[2018-10-15] MEDS: Acetaminophen 500 MG Tablet 1000 MG PO (09:55)
[2018-10-15 13:59] LABS: Hematocrit 34.4 % (37-47); Hemoglobin 11.3 g/dl (12.0-15.0); Mean Corp Hgb Conc 32.8 g/gl (32-36); Mean Corpuscular Volume 94.5 fL (81-99); Mean Platelet Vol. 8.4 fl (6.2-12.0); Platelet Count 281 K/mm3 (150-450); RBC Distribution Width CV 12.8 % (11.6-14.6); RBC Distribution Width SD 44.3 fl (35.1-43.9); Red Blood Count 3.64 M/mm3 (4.2-5.4); White Blood Count 10.5 K/mm3 (4.4-11.0)
[2018-10-15 14:03] LABS: Scan Indicated on CBC? Y/N NO
[2018-10-15 15:17] LABS: Group B Strep DNA By PCR Negative (Negative); Internal Control PASS; Probe Check PASS; Specimen Processing Control PASS
--- NOTE | 2018-10-15 16:12 | HP.PCM_ITS ---
- Problem List (1) Vasa previa Status: Acute (2) Contraception management Status: Acute Qualifiers: Comment: Nexplanon at 6 wk pp visit-do insurance auth after 11/06/18 (3) Vaginal bleeding during Status: Acute (4) Antepartum cervical shortening Status: Acute Comment: given vaginal progesterone (5) Marginal insertion of umbilical cord Status: Acute Comment: growth US every 4 weeks (6) Placenta previa antepartum Status: Acute Comment: Resolved/Anterior previa, no accreata, previous C/S. MFM Consult US (7) Status: Acute Qualifiers: Comment: declines genetic and NTD screening. anatomy scan reviewed (8) History of delivery, antepartum Status: Acute Comment: considering , education given (9) BMI 30.0-30.9,adult Status: Acute Comment: ordered 1 tm glucola (10) Supervision of normal Status: Acute Qualifiers: Comment: PRR SAI 12/10/18 boy Adolfo PC Steph Renzo History Date of Admission: 10/15/18 Final SAI: 11/26/18 Gestational age: 34 Weeks and 0 Days History of this : This is a 23 year-old, at 32 weeks gestational age presents for admission secondary to vasa previa. she has had a complicated by shortened cervical length and intially a placenta previa, and now she has a vasa previa. she denies any bleeding, contractions, or discharge. 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.3 Surgical History: Surgical History (Last Reviewed 10/01/18 @ 15:57 by Lorelei Grant) H/O section Onset Date: ~2009 Z98.891 Allergies No Known Allergies Allergy (Verified 10/15/18 08:23) Home Medications: Home Medications vit 123-iron 28 mg-folic acid 800 [id number] 235 mg capsule 1 cap PO QDAY 05/07/18 Famotidine 40 mg PO DAILY 09/08/18 Progesterone, Micronized [Prometrium] 200 mg VAGINAL DAILY 09/11/18 Sertraline HCl [Zoloft] 50 mg PO QDAY 10/15/18 Smoking Status: Never smoker Alcohol: None Number of Fetus(es): 1 History Past Pregnancies: Past Pregnancies Delivery Date Name GA/Weeks Outcome Route Weight Infant Gender Labor Length Anesthesia Delivery Location Provider FOB Labs: Medications Generic Name Dose Route Start Last Admin Trade Name Lily PRN Reason Stop Dose Admin Acetaminophen 1,000 mg 10/15/18 09:33 10/15/18 09:55 Tylenol PO 1,000 mg Q8H PRN Administration [facility] Labor & Delivery Reason for Admission Other (Please document other reason below) Other Reason for Admission: Vasa previa Mom's Microbiology 10/15/18 Unknown Genital vaginal Group B Streptococcus Culture - Pending Mom's Labs & Results 10/15/18 10/15/18 10/15/18 09:10 09:40 09:55 WBC RBC Hgb Hct MCV MCH MCHC RDW RDW Differential Plt Count MPV Group B Strep DNA Negative Specimen Comment Not Reportable Blood Type Cancelled A POSITIVE Antibody Screen Cancelled NEGATIVE 10/15/18 13:45 WBC 10.5 RBC 3.64 L Hgb 11.3 L Hct 34.4 L MCV 94.5 MCH 31.0 MCHC 32.8 RDW 12.8 RDW Differential 44.3 H Plt Count 281 MPV 8.4 Group B Strep DNA Specimen Comment Blood Type Antibody Screen Course Did the patient receive Yes care? Labs Blood Type: A RH: POSITIVE RPR/VDRL/Syphilis Nonreactive Rubella status Immune HbSAg Negative Chlamydia Negative Gonorrhea Negative HIV/AIDS Non-Reactive Group B Strep: Collected on Admission Current Obstetrical History Gestational Diabetes No Incompetent Cervix No Infertility No IUGR No Macrosomia No Hypertension/Pre-eclampsia No Placenta Previa/Abruption Yes: placenta previa at 28 wks. Resolved. PTL/PROM No Uterine anomaly Yes: bicornate uterus Oligohydramnios No Polyhydramnios No Multiple gestation No Past Medical History Asthma No Diabetes No Hypertension No Heart disease No Mitral valve prolapse No Neurologic/Seizure disorder/ No Migraines Kidney disease No Liver disease No Varicosities No Clotting disorders/Hx of DVT No Thyroid Dysfunction No Other medical diseases No Psychiatric disorders No Major trauma No Abnormal PAP smear No Sleep apnea No Mammogram in the last 2 years No Social History Marital Status: SINGLE Alleged father Renzo Gomes Hx Smoking No Smoking Status Never smoker Expected Infant Delivery Method: Scheduled Section Review of Systems Constitutional: Denies: Fever, Malaise Eyes: Denies: Blurred vision, Vision Change HEENT: Denies: Head Aches, Visual Changes Cardiovascular: Denies: Chest Pain, Palpitations Respiratory: Denies: Cough, Shortness of Breath, Wheezing Gastrointestinal: Denies: Abdominal Pain, Diarrhea, Nausea, Vomiting Genitourinary: Denies: Dysuria, Hematuria Musculoskeletal: Denies: Joint Pain, Muscle pain Skin: Denies: Lesions, Rash Neurological: Denies: Blurred vision, Focal weakness, Headaches Psychiatric: Denies: Anxiety, Depression Endocrine: Denies: Heat/ Cold Intolerance Hematologic/ Lymphatic: Denies: Easy Bruising, Easy Bleeding Physical Exam General: Alert, Cooperative, No apparent distress HEENT: Atraumatic, Normocephalic. Negative for: Thyromegaly, Lymphadenopathy Cardiovascular: Regular rate Lungs: Normal air movement Abdomen: Soft, Non Tender, Gravid Neurological: Deep Tendon Reflexes 2+/4 and Symmetrical, Neuro grossly intact. 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 Negative for: Vulvar lesions Estimated gestational size: Appropriate for gestational size Presentation: Cephalic Assessment/Plan All Active Problems (Last Reviewed 10/01/18 @ 15:57 by Lorelei Grant) Vasa previa (Acute) Contraception management (Acute) Vaginal bleeding during (Acute) Antepartum cervical shortening (Acute) Marginal insertion of umbilical cord (Acute) Placenta previa antepartum (Acute) (Acute) History of delivery, antepartum (Acute) BMI 30.0-30.9,adult (Acute) Supervision of normal (Acute) This is a 23 year-old, at 32 weeks gestational age with vasa previa discussed with MFM- recommend RLTCS at 34-35 weeks due to vasa previa, recommend delivery earlier if develops bleeding or labor or SROM. will admit for monitoring for 1 hour twice daily, twice weekly BPP, and plan RLTCS at 34 weeks. give celestone now.
[2018-10-15] MEDS: Betamethasone/Betamethasone 30 MG/5 ML Vial 12 MG IM (16:35)
--- NOTE | 2018-10-15 18:04 | NURSING ---
called to confirm SAI. charted in her H & P this am as 11/26/18 but stated that was an error and would correct tomorrow. Correct SAI is 12/10/18 as stated in her OB records.
[2018-10-15] MEDS: Sertraline 50 MG Tablet PO (20:37)
[2018-10-15] MEDS: Prenatal Vits Tablet 1 TABLET PO (20:37)
[2018-10-16] MEDS: Famotidine 20 MG Tablet 40 MG PO (09:04)
[2018-10-16] MEDS: 0.9 % NaCl (Sterile) Posiflush 10 mL IV ×2 (10:00→20:24)
[2018-10-16] MEDS: Betamethasone/Betamethasone 30 MG/5 ML Vial 12 MG IM (16:35)
[2018-10-16] MEDS: Prenatal Vits Tablet 1 TABLET PO (20:24)
[2018-10-16] MEDS: Sertraline 50 MG Tablet PO (20:24)
--- NOTE | 2018-10-16 21:31 | PCM.PN.OB ---
Subjective: patient denies any bleeding or lof, good fm and denies any ctx. no CP SOB N V - Physical Exam General: Alert, Oriented x3 Abdomen: Gravid Comment: FHT 140 moderte variability reactive no decels cat I Weight: 225 lb 6.4 oz Body Mass Index (BMI) 33.3 Microbiology Past 72 Hours 10/15/18 Unknown Group B Streptococcus Culture - Preliminary Genital vaginal Medical Necessity - Tobacco Use Smoking Status: Never smoker Assessment/Plan All Active Problems (Last Reviewed 10/01/18 @ 15:57 by Lorelei Grant) Vasa previa (Acute) Contraception management (Acute) Antepartum cervical shortening (Acute) Marginal insertion of umbilical cord (Acute) (Acute) History of delivery, antepartum (Acute) BMI 30.0-30.9,adult (Acute) Supervision of normal (Acute) Placenta previa antepartum (Resolved) Vaginal bleeding during (Resolved) This is a 23 year-old, at 32 weeks gestational age with vasa previa Vasa previa- discussed with MFM- recommend RLTCS at 34-35 weeks due to vasa previa, recommend delivery earlier if develops bleeding or labor or SROM. Monitoring- plan monitoring for 1 hour twice daily, twice weekly BPP, and plan RLTCS at 34 weeks on 10/31 Prematurity- s/p celestone x 2 previous x 1 cervical shortening- continue progesterone suppositories
[2018-10-17] MEDS: 0.9 % NaCl (Sterile) Posiflush 10 mL IV (07:50)
[2018-10-17] MEDS: Famotidine 20 MG Tablet 40 MG PO (09:04)
--- NOTE | 2018-10-17 18:01 | PCM.PN.OB ---
Subjective: no vb lof good fm no regular ctx no CP SOB NV - Physical Exam General: Alert, Oriented x3 Comment: fht 140s moderate variability reactive no decels cat I tracing toco no ctx Weight: 225 lb 6.4 oz Body Mass Index (BMI) 33.3 Microbiology Past 72 Hours 10/15/18 Unknown Group B Streptococcus Culture - Preliminary Genital vaginal Medical Necessity - Tobacco Use Smoking Status: Never smoker Assessment/Plan All Active Problems (Last Reviewed 10/01/18 @ 15:57 by Lorelei Grant) Vasa previa (Acute) Contraception management (Acute) Antepartum cervical shortening (Acute) Marginal insertion of umbilical cord (Acute) (Acute) History of delivery, antepartum (Acute) BMI 30.0-30.9,adult (Acute) Supervision of normal (Acute) Placenta previa antepartum (Resolved) Vaginal bleeding during (Resolved) This is a 23 year-old, at 32w2d gestational age with vasa previa Vasa previa- discussed with MFM- recommend RLTCS at 34-35 weeks due to vasa previa, recommend delivery earlier if develops bleeding or labor or SROM. Monitoring- plan monitoring for 1 hour twice daily, twice weekly BPP, and plan RLTCS at 34 weeks on 10/31 Prematurity- s/p celestone x 2 previous x 1 cervical shortening- continue progesterone suppositories
[2018-10-17] MEDS: Prenatal Vits Tablet 1 TABLET PO (21:55)
[2018-10-17] MEDS: Sertraline 50 MG Tablet PO (21:55)
[2018-10-18] MEDS: 0.9 % NaCl (Sterile) Posiflush 10 mL IV (00:52)
--- NOTE | 2018-10-18 07:24 | US_ITS ---
STUDY: OBSTETRICAL ULTRASOUND - BIOPHYSICAL PROFILE REASON FOR EXAM: Female, 23 years old. well-being. LMP: March 05, 2018. PRIOR ULTRASOUND: Comparison is made with prior study dated October 15, 2018. TECHNIQUE: Transabdominal TECHNICAL QUALITY: Adequate. FINDINGS: There is a single intrauterine fetus. The fetus is in a cephalic presentation. There is demonstrated cardiac activity with a heart rate of 156 bpm. There is a normal amniotic fluid volume. The largest amniotic fluid pocket measures 8 cm x 10 cm. The amniotic fluid index (ALTAF) is 29.9 cm. The placenta is anterior in location and is not low lying. There are Grade 0 placental changes. Gender: Male BIOPHYSICAL PROFILE: Breathing Movements (FBM): 2 Gross Body Movements (GBM): 2 Tone (FT): 2 Amniotic Fluid Volume (AFV): 2 TOTAL SCORE: 8 / 8 US/Biophysical Profile IMPRESSION: Normal biophysical profile of 06/13. Electronically Signed: Karthikeyan Kruse MD at 13:35 EST Tel [phone], Service support ,
[2018-10-18] MEDS: Famotidine 20 MG Tablet 40 MG PO (11:10)
--- NOTE | 2018-10-18 12:20 | NURSING ---
BPP 06/13 today.
[2018-10-18] MEDS: 0.9% NaCl Peripheral Flush Adult/Peds 10 ML IV ×2 (12:33→21:31)
--- NOTE | 2018-10-18 17:23 | PCM.PN.OB ---
Subjective: doing well no CP SOB N V no vb lof good fm no regular ctx - Physical Exam General: Alert, Oriented x3 Abdomen: - - fht reactive and reassuring Weight: 225 lb 6.4 oz Body Mass Index (BMI) 33.3 Microbiology Past 72 Hours 10/15/18 Unknown Group B Streptococcus Culture - Final Genital vaginal Group B Beta Streptococcus is not isolated. Laboratory Tests Past 24 Hrs 10/18/18 09:00 Blood Type A POSITIVE Antibody Screen NEGATIVE Medical Necessity - Tobacco Use Smoking Status: Never smoker Assessment/Plan All Active Problems (Last Reviewed 10/01/18 @ 15:57 by Lorelei Grant) Vasa previa (Acute) Contraception management (Acute) Antepartum cervical shortening (Acute) Marginal insertion of umbilical cord (Acute) (Acute) History of delivery, antepartum (Acute) BMI 30.0-30.9,adult (Acute) Supervision of normal (Acute) Placenta previa antepartum (Resolved) Vaginal bleeding during (Resolved) This is a 23 year-old, at 32w3d gestational age with vasa previa Vasa previa- discussed with MFM- recommend RLTCS at 34-35 weeks due to vasa previa, recommend delivery earlier if develops bleeding or labor or SROM. Monitoring- plan monitoring for 1 hour twice daily, twice weekly BPP, and plan RLTCS at 34 weeks on 10/31 Prematurity- s/p celestone x 2 previous x 1 cervical shortening- continue progesterone suppositories
[2018-10-18] MEDS: Acetaminophen 500 MG Tablet 1000 MG PO (21:30)
[2018-10-18] MEDS: Sertraline 50 MG Tablet PO (21:30)
[2018-10-18] MEDS: Prenatal Vits Tablet 1 TABLET PO (21:30)
--- NOTE | 2018-10-18 21:36 | NURSING ---
2105- called dr emanuel castillo for dibucaine for hemorrhoids, made aware of pt feeling the lower back pain denies feeling contx/tightening, was placing pt on monitor when she c/o of the discomfort rating it 7/10 no pain with percussion planning on monitoring pt for her hour of tracing, giving tylenol and then to get her up to ambulate-pt states moving seemed to help. order for heating pad if needed as well. also aware of pt feeling like she has to push to start to void, denies feeling painful, dr castellanos already aware of this, will continue to monitor.
[2018-10-18] MEDS: Dibucaine 30 GM Tube 1 APPLIC TOPICAL (22:38)
--- NOTE | 2018-10-19 08:06 | PCM.PN.OB ---
Subjective: No vaginal bleeding, LOF. Good movement. Doing well. Was able to sleep well last night. - Physical Exam General: Alert, Oriented x3 Abdomen: Non Tender, Gravid Weight: 225 lb 6.4 oz Body Mass Index (BMI) 33.3 Microbiology Past 72 Hours 10/15/18 Unknown Group B Streptococcus Culture - Final Genital vaginal Group B Beta Streptococcus is not isolated. Laboratory Tests Past 24 Hrs 10/18/18 09:00 Blood Type A POSITIVE Antibody Screen NEGATIVE Medical Necessity - Tobacco Use Smoking Status: Never smoker Assessment/Plan All Active Problems (Last Reviewed 10/01/18 @ 15:57 by Lorelei Grant) Vasa previa (Acute) Contraception management (Acute) Antepartum cervical shortening (Acute) Marginal insertion of umbilical cord (Acute) (Acute) History of delivery, antepartum (Acute) BMI 30.0-30.9,adult (Acute) Supervision of normal (Acute) Placenta previa antepartum (Resolved) Vaginal bleeding during (Resolved) Continue care as per plan Dr. Solis: This is a 23 year-old, at 32w3d gestational age with vasa previa Vasa previa- discussed with MFM- recommend RLTCS at 34-35 weeks due to vasa previa, recommend delivery earlier if develops bleeding or labor or SROM. Monitoring- plan monitoring for 1 hour twice daily, twice weekly BPP, and plan RLTCS at 34 weeks on 10/31 Prematurity- s/p celestone x 2 previous x 1 cervical shortening- continue progesterone suppositories
[2018-10-19] MEDS: 0.9% NaCl Peripheral Flush Adult/Peds 10 ML IV ×2 (09:25→20:35)
[2018-10-19] MEDS: Famotidine 20 MG Tablet 40 MG PO (09:25)
[2018-10-19] MEDS: Sertraline 50 MG Tablet PO (20:35)
[2018-10-19] MEDS: Prenatal Vits Tablet 1 TABLET PO (20:35)
[2018-10-19] MEDS: Dibucaine 30 GM Tube 1 APPLIC TOPICAL (20:36)
--- NOTE | 2018-10-20 08:53 | PCM.PN.OB ---
Subjective: Doing well. Good Fm. No vaginal bleeding, LOF. - Physical Exam General: Alert, Oriented x3 Abdomen: Soft, Non Tender, Gravid Weight: 225 lb 6.4 oz Body Mass Index (BMI) 33.3 Microbiology Past 72 Hours 10/15/18 Unknown Group B Streptococcus Culture - Final Genital vaginal Group B Beta Streptococcus is not isolated. Medical Necessity - Tobacco Use Smoking Status: Never smoker Assessment/Plan All Active Problems (Last Reviewed 10/01/18 @ 15:57 by Lorelei Garnt) Vasa previa (Acute) Contraception management (Acute) Antepartum cervical shortening (Acute) Marginal insertion of umbilical cord (Acute) (Acute) History of delivery, antepartum (Acute) BMI 30.0-30.9,adult (Acute) Supervision of normal (Acute) Placenta previa antepartum (Resolved) Vaginal bleeding during (Resolved) Continue care as per plan Dr. Solis: This is a 23 year-old, at 32w3d gestational age with vasa previa Vasa previa- discussed with MFM- recommend RLTCS at 34-35 weeks due to vasa previa, recommend delivery earlier if develops bleeding or labor or SROM. Monitoring- plan monitoring for 1 hour twice daily, twice weekly BPP, and plan RLTCS at 34 weeks on 10/31 Prematurity- s/p celestone x 2 previous x 1 cervical shortening- continue progesterone suppositories
[2018-10-20] MEDS: 0.9% NaCl Peripheral Flush Adult/Peds 10 ML IV ×2 (08:57→21:13)
[2018-10-20] MEDS: Famotidine 20 MG Tablet 40 MG PO (10:02)
[2018-10-20] MEDS: Prenatal Vits Tablet 1 TABLET PO (21:10)
[2018-10-20] MEDS: Sertraline 50 MG Tablet PO (21:10)
[2018-10-21] MEDS: Famotidine 20 MG Tablet 40 MG PO (08:06)
[2018-10-21] MEDS: 0.9% NaCl Peripheral Flush Adult/Peds 10 ML IV ×3 (08:10→20:40)
--- NOTE | 2018-10-21 09:15 | NURSING ---
Pt IV leaking, needing new site. Looked at orders and pt due to have CBC drawn tomorrow. Per Dr Moses go ahead and draw CBC today with new IV stick so pt does not have to be stuck again tomorrow.
--- NOTE | 2018-10-21 09:28 | PCM.PN.OB ---
Subjective: No complaints today. No abdominal cramping, no bleeding. Good movement. Objective: Afeb VSS FHR tracing Cat 1. - Physical Exam General: Alert, Oriented x3, Cooperative, No apparent distress Lungs: Clear to auscultation, Normal air movement Cardiovascular: Regular rate, Regular Rhythm Abdomen: Soft, Non Tender, Non-Distended, Gravid, Appropriate for Gestational Age Extremities: No edema Neurological: Neuro grossly intact Psych/Mental Status: Normal Affect Weight: 225 lb 6.4 oz Body Mass Index (BMI) 33.3 Microbiology Past 72 Hours 10/15/18 Unknown Group B Streptococcus Culture - Final Genital vaginal Group B Beta Streptococcus is not isolated. Medical Necessity - Tobacco Use Smoking Status: Never smoker Assessment/Plan All Active Problems (Last Reviewed 10/01/18 @ 15:57 by Lorelei Grant) Vasa previa (Acute) Contraception management (Acute) Antepartum cervical shortening (Acute) Marginal insertion of umbilical cord (Acute) (Acute) History of delivery, antepartum (Acute) BMI 30.0-30.9,adult (Acute) Supervision of normal (Acute) Placenta previa antepartum (Resolved) Vaginal bleeding during (Resolved) Stable with no signs of labor. No bleeding. Continue observation. Encouraged to try to get out of bed at times. Mood seems appropriate considering.
[2018-10-21 09:55] LABS: Absolute Lymphocyte Count 2.23 X10^3/ul (0.83-4.51); Absolute Neutrophil Count 11.2 X10^3/uL (2.0-7.7); Basophil# 0.01 X10^3/uL; Basophil% 0.1 % (0-1); Eosinophil# 0.06 X10^3/uL; Eosinophils% 0.4 % (0-5); Hematocrit 37.8 % (37-47); Hemoglobin 12.6 g/dl (12.0-15.0); Lymphocyte # 2.23 X10^3/ul (4.0); Lymphocyte % 15.6 % (19-41); Mean Corp Hgb Conc 33.3 g/gl (32-36); Mean Corpuscular Hgb 31.3 pg (27.0-32.0); Mean Platelet Vol. 8.3 fl (6.2-12.0); Monocyte# 0.78 X10^3/uL; Monocyte% 5.5 % (0-10); Neutrophil # 11.15 X10^3/uL (2.7-7.7); Neutrophil % 78.1 % (47-70); Platelet Count 312 K/mm3 (150-450); RBC Distribution Width CV 13.1 % (11.6-14.6); RBC Distribution Width SD 44.9 fl (35.1-43.9); Red Blood Count 4.02 M/mm3 (4.2-5.4); White Blood Count 14.3 K/mm3 (4.4-11.0)
[2018-10-21 09:57] LABS: POSITIVE COUNT NO; POSITIVE DIFFERENTIAL NO; POSITIVE MORPHOLOGY NO
[2018-10-21] MEDS: Sertraline 50 MG Tablet PO ×2 (20:27→20:28)
[2018-10-21] MEDS: Prenatal Vits Tablet 1 TABLET PO (20:27)
[2018-10-22] MEDS: Famotidine 20 MG Tablet 40 MG PO (09:16)
[2018-10-22] MEDS: 0.9% NaCl Peripheral Flush Adult/Peds 10 ML IV ×2 (09:17→21:28)
--- NOTE | 2018-10-22 09:45 | US_ITS ---
STUDY: OBSTETRICAL ULTRASOUND - BIOPHYSICAL PROFILE REASON FOR EXAM: Female, 23 years old. well-being. LMP: March 05, 2018. PRIOR ULTRASOUND: Comparison is made with prior study dated October 18, 2018. TECHNIQUE: Transabdominal TECHNICAL QUALITY: Adequate. FINDINGS: There is a single intrauterine fetus. The fetus is in a cephalic presentation. There is demonstrated cardiac activity with a heart rate of 158 bpm. There is a normal amniotic fluid volume. The largest amniotic fluid pocket measures 6.4 cm x 10.3 cm. The amniotic fluid index (ALTAF) is 17.4 cm. The placenta is There are Grade 0 placental changes. Age by LMP: 33 weeks, 0 days. SAI by LMP: December 10, 2017. Gender: Male BIOPHYSICAL PROFILE: Breathing Movements (FBM): 2 Gross Body Movements (GBM): 2 Tone (FT): 2 Amniotic Fluid Volume (AFV): 2 TOTAL SCORE: 8 / 8 US/Biophysical Profile IMPRESSION: Normal biophysical profile of 06/13. Electronically Signed: Karthikeyan Kruse MD at 14:30 EST Tel [phone], Service support ,
[2018-10-22] MEDS: Sertraline 50 MG Tablet PO (21:28)
[2018-10-22] MEDS: Prenatal Vits Tablet 1 TABLET PO (21:28)
--- NOTE | 2018-10-22 22:07 | PCM.PN.OB ---
Subjective: doing well no complaints no vb lof good fm no regular ctx no CP SOB N V - Physical Exam General: Alert, Oriented x3 Abdomen: - - fht 140-150 moderate variability reactiv orion decels cat I tracing no Ctx Weight: 225 lb 6.4 oz Body Mass Index (BMI) 33.3 Medical Necessity - Tobacco Use Smoking Status: Never smoker Assessment/Plan All Active Problems (Last Reviewed 10/01/18 @ 15:57 by Lorelei Grant) Vasa previa (Acute) Contraception management (Acute) Antepartum cervical shortening (Acute) Marginal insertion of umbilical cord (Acute) (Acute) History of delivery, antepartum (Acute) BMI 30.0-30.9,adult (Acute) Supervision of normal (Acute) Placenta previa antepartum (Resolved) Vaginal bleeding during (Resolved) This is a 23 year-old, at 33w0d gestational age with vasa previa Vasa previa- discussed with MFM- recommend RLTCS at 34-35 weeks due to vasa previa, recommend delivery earlier if develops bleeding or labor or SROM. Monitoring- plan monitoring for 1 hour twice daily, twice weekly BPP, and plan RLTCS at 34 weeks on 10/31 Prematurity- s/p celestone x 2 previous x 1 cervical shortening- continue progesterone suppositories
[2018-10-23] MEDS: Famotidine 20 MG Tablet 40 MG PO (09:10)
[2018-10-23] MEDS: 0.9% NaCl Peripheral Flush Adult/Peds 10 ML IV (10:54)
[2018-10-23] MEDS: Sertraline 50 MG Tablet PO (21:10)
[2018-10-23] MEDS: Prenatal Vits Tablet 1 TABLET PO (21:10)
[2018-10-23] MEDS: Acetaminophen 500 MG Tablet 1000 MG PO (21:25)
--- NOTE | 2018-10-23 21:44 | PCM.PN.OB ---
Subjective: doing well no complaints no CP SOB N V no vb lof good fm no regular ctx - Physical Exam General: Alert, Oriented x3, Cooperative Abdomen: Soft, Non Tender Weight: 225 lb 6.4 oz Body Mass Index (BMI) 33.3 Medical Necessity - Tobacco Use Smoking Status: Never smoker Assessment/Plan All Active Problems (Last Reviewed 10/01/18 @ 15:57 by Lorelei Grant) Vasa previa (Acute) Contraception management (Acute) Antepartum cervical shortening (Acute) Marginal insertion of umbilical cord (Acute) (Acute) History of delivery, antepartum (Acute) BMI 30.0-30.9,adult (Acute) Supervision of normal (Acute) Placenta previa antepartum (Resolved) Vaginal bleeding during (Resolved) This is a 23 year-old, at 33w1d gestational age with vasa previa Vasa previa- discussed with MFM- recommend RLTCS at 34-35 weeks due to vasa previa, recommend delivery earlier if develops bleeding or labor or SROM. Monitoring- plan monitoring for 1 hour twice daily, twice weekly BPP, and plan RLTCS at 34 weeks on 10/31 Prematurity- s/p celestone x 2 previous x 1 cervical shortening- continue progesterone suppositories
[2018-10-24] MEDS: 0.9% NaCl Peripheral Flush Adult/Peds 10 ML IV ×3 (06:34→20:56)
[2018-10-24] MEDS: Acetaminophen 500 MG Tablet 1000 MG PO (08:08)
[2018-10-24] MEDS: Famotidine 20 MG Tablet 40 MG PO (08:08)
[2018-10-24] MEDS: proMETHazine 25 MG Tablet 12.5 MG PO (15:24)
--- NOTE | 2018-10-24 17:10 | PCM.PN.OB ---
Subjective: doing well no complaints no CP SOB N V no vb lof good fm no regular ctx co some headaches - Physical Exam General: Alert, Oriented x3 Neck: Trachea Midline, Thyroid Normal Size and Texture Weight: 225 lb 6.4 oz Body Mass Index (BMI) 33.3 Laboratory Tests Past 24 Hrs 10/24/18 10:15 Blood Type A POSITIVE Antibody Screen NEGATIVE Medical Necessity - Tobacco Use Smoking Status: Never smoker Assessment/Plan All Active Problems (Last Reviewed 10/01/18 @ 15:57 by Lorelei Grant) Vasa previa (Acute) Contraception management (Acute) Antepartum cervical shortening (Acute) Marginal insertion of umbilical cord (Acute) (Acute) History of delivery, antepartum (Acute) BMI 30.0-30.9,adult (Acute) Supervision of normal (Acute) Placenta previa antepartum (Resolved) Vaginal bleeding during (Resolved) This is a 23 year-old, at 33w2d gestational age with vasa previa Vasa previa- discussed with MFM- recommend RLTCS at 34-35 weeks due to vasa previa, recommend delivery earlier if develops bleeding or labor or SROM. Monitoring- plan monitoring for 1 hour twice daily, twice weekly BPP, and plan RLTCS at 34 weeks on 10/31 Prematurity- s/p celestone x 2 previous x 1 cervical shortening- continue progesterone suppositories
[2018-10-24] MEDS: Sertraline 50 MG Tablet PO (20:56)
[2018-10-24] MEDS: Prenatal Vits Tablet 1 TABLET PO (20:56)
[2018-10-25] VITALS (20 sets, daily range): BP systolic 104–140; BP diastolic 54–83; PULSE 93–118; RESP 13–21; TEMP 36.8; O2SAT 96–98
[2018-10-25] MEDS: 0.9% NaCl Peripheral Flush Adult/Peds 10 ML IV (09:28)
[2018-10-25] MEDS: Famotidine 20 MG Tablet 40 MG PO (09:34)
--- NOTE | 2018-10-25 10:37 | US_ITS ---
STUDY: OBSTETRICAL ULTRASOUND - BIOPHYSICAL PROFILE REASON FOR EXAM: Female, 23 years old. Evaluate growth LMP: Unknown. PRIOR ULTRASOUND: 10/22/2018 TECHNIQUE: Transabdominal TECHNICAL QUALITY: Adequate. FINDINGS: There is a single intrauterine fetus. The fetus is in a cephalic presentation. There is demonstrated cardiac activity with a heart rate of 156 bpm. There is a normal amniotic fluid volume. The largest amniotic fluid pocket measures 7.2 x 6.6 cm. The amniotic fluid index (ALTAF) is 22.9 cm. The placenta is anterior in location and is not low lying. There are Grade 2 placental changes. age by LMP 33 weeks 3 days. Estimated date of delivery by LMP 12/10/2018 BIOPHYSICAL PROFILE: Breathing Movements (FBM): 2 Gross Body Movements (GBM): 2 Tone (FT): 2 Amniotic Fluid Volume (AFV): 2 TOTAL SCORE: 8 / 8 US/Biophysical Profile IMPRESSION: Normal biophysical profile of 8/8. Electronically Signed: Taj Key MD at 20:02 EST , Service support ,
[2018-10-25] MEDS: Lactated Ringers 1,000 ML 999 ML IV (16:40)
[2018-10-25] MEDS: Sodium Citrate/Citric Acid 30 ML UDC PO (17:30)
[2018-10-25] MEDS: Cefazolin 2 GM in 0.9% Normal Saline 100 ML IV (17:38)
[2018-10-25] MEDS: Lactated Ringers 1,000 ML 150 ML IV (17:40)
--- NOTE | 2018-10-25 17:58 | UT_PTH ---
PATIENT: STEFF RIVAS LOC: [facility] U#:[id number] AGE/SX: 23/F ROOM: WP011 RE10/15/[address]: Dr. Savana Solis MD : 1995 BED: 1 DIS: 10/29/2018 SPEC #: [id number] RECD: 10/26/18 01:43 STATUS: IRENE REMarcus #: [id number] RENETTA: 10/25/18 17:[address]: Savana Solis DEPT: SURGICAL PATHOLOGY RECD BY: Vinicius Crawford ENTERED: 10/26/18 12:31 SP TYPE: UTERUS OTHR DR: Dr. Trung Saldivar, DO Dr. Meño Willis DO Tissues: Uterus, NOS Procedures: Surgery Specimen Level V HEADER OPERATION: Repeat section, hysterectomy PRE-OP DIAGNOSIS: Vasa previa TISSUE SUBMITTED: Uterus MICROSCOPIC DIAGNOSIS Uterus, supracervical hysterectomy: Endometrium - predominantly denuded endometrial surface with focal area of hemorrhage and decidual changes. Myometrium - no pathologic diagnosis. CHAD:gab 10/29/18 COMMENT No placental tissue is identified. MICROSCOPIC DESCRIPTION Slides are reviewed. GROSS DESCRIPTION Received is one container labeled with the patient's name and not further designated. The specimen consists of a supracervical hysterectomy specimen consisting of uterus without cervix and weighing 562 gm and measures 12.5 x 13 x 6 cm. The serosal surface is jansen, glistening. 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 The endometrium appears denuded and endometrial surface is congested and hemorrhagic. No obvious placental tissue is identified. The anterior or posterior surface could not be oriented. Sections of the uterine wall do not reveal any mass lesion and measures up to 3.5 cm in thickness. Medical Record Clerk sections are submitted in six cassettes. / CHAD:gab 10/26/18 TC: 5 [facility]: [id number]
[2018-10-25] MEDS: Oxytocin 30 units/NS 500 ml 30 UNITS/500 ML IV.SOLN 167 UNITS IV (18:01)
[2018-10-25] MEDS: Methylergonovine 0.2 MG/ML Ampul IM (18:40)
[2018-10-25 18:59] LABS: Absolute Lymphocyte Count 2.28 X10^3/ul (0.83-4.51); Basophil# 0.02 X10^3/uL; Basophil% 0.2 % (0-1); Eosinophil# 0.06 X10^3/uL; Eosinophils% 0.5 % (0-5); Hematocrit 28.5 % (37-47); Hemoglobin 9.5 g/dl (12.0-15.0); Lymphocyte # 2.28 X10^3/ul (4.0); Lymphocyte % 18.2 % (19-41); Mean Corp Hgb Conc 33.3 g/gl (32-36); Mean Corpuscular Hgb 31.6 pg (27.0-32.0); Mean Corpuscular Volume 94.7 fL (81-99); Mean Platelet Vol. 8.5 fl (6.2-12.0); Monocyte# 1.18 X10^3/uL; Monocyte% 9.4 % (0-10); Neutrophil # 8.99 X10^3/uL (2.7-7.7); Neutrophil % 71.5 % (47-70); Platelet Count 304 K/mm3 (150-450); RBC Distribution Width SD 44.5 fl (35.1-43.9); Red Blood Count 3.01 M/mm3 (4.2-5.4); White Blood Count 12.6 K/mm3 (4.4-11.0)
[2018-10-25 19:00] LABS: Differential Indicated SCAN CRITERIA MET; POSITIVE COUNT YES; POSITIVE DIFFERENTIAL NO; POSITIVE MORPHOLOGY YES
[2018-10-25 19:24] LABS: International Normalized Ratio 1.1; Partial Thromboplast Time 24.1 Seconds (24.1-36.2); Prothrombin Time (Protime)PT. 14.6 SECONDS (11.7-14.9)
[2018-10-25 19:33] LABS: Fibrinogen 382 mg/dl (203-444)
[2018-10-25 19:43] LABS: Absolute Neutrophil Count 22.3 X10^3/uL (2.0-7.7); Basophil# 0.02 X10^3/uL; Basophil% 0.1 % (0-1); Eosinophil# 0.04 X10^3/uL; Eosinophils% 0.1 % (0-5); Hematocrit 32.9 % (37-47); Hemoglobin 10.9 g/dl (12.0-15.0); Lymphocyte % 9.3 % (19-41); Mean Corp Hgb Conc 33.1 g/gl (32-36); Mean Corpuscular Hgb 30.5 pg (27.0-32.0); Mean Corpuscular Volume 92.2 fL (81-99); Mean Platelet Vol. 8.1 fl (6.2-12.0); Monocyte# 1.98 X10^3/uL; Monocyte% 7.4 % (0-10); Neutrophil # 22.28 X10^3/uL (2.7-7.7); Neutrophil % 82.8 % (47-70); Platelet Count 219 K/mm3 (150-450); RBC Distribution Width CV 13.7 % (11.6-14.6); RBC Distribution Width SD 45.8 fl (35.1-43.9); Red Blood Count 3.57 M/mm3 (4.2-5.4); White Blood Count 26.9 K/mm3 (4.4-11.0)
[2018-10-25 19:46] LABS: Differential Indicated SCAN CRITERIA MET; POSITIVE COUNT NO; POSITIVE DIFFERENTIAL YES; POSITIVE MORPHOLOGY YES
[2018-10-25 19:50] LABS: Fibrinogen 329 mg/dl (203-444); International Normalized Ratio 1.2; Partial Thromboplast Time 26.2 Seconds (24.1-36.2); Prothrombin Time (Protime)PT. 14.7 SECONDS (11.7-14.9)
--- NOTE | 2018-10-25 20:10 | RAD_ITS ---
STUDY: X-RAY - ABDOMEN/PELVIS REASON FOR EXAM: Female, 23 years old. Foreign body TECHNIQUE: Two AP supine views of the abdomen and pelvis. COMPARISON: None. FINDINGS: The lung bases are not included in the [id number] of this study. There is an unremarkable bowel gas pattern. There is no demonstrated free abdominal air. The visualized liver, spleen and kidneys are grossly normal in size and morphology. Normal soft tissue structures. Normal visualized osseous structures. RAD/Abdomen Single View (Portable) IMPRESSION: Normal x-ray examination of the abdomen and pelvis. No radiopaque foreign body is identified. Electronically Signed: Taj Key MD at 21:03 EST , Service support ,
[2018-10-25 20:23] LABS: Differential Comment SCANNED
[2018-10-25 20:26] LABS: Hematocrit 28.9 % (37-47); Hemoglobin 9.7 g/dl (12.0-15.0); Mean Corp Hgb Conc 33.6 g/gl (32-36); Mean Corpuscular Hgb 30.7 pg (27.0-32.0); Mean Corpuscular Volume 91.5 fL (81-99); Mean Platelet Vol. 8.1 fl (6.2-12.0); Platelet Count 205 K/mm3 (150-450); RBC Distribution Width CV 13.8 % (11.6-14.6); RBC Distribution Width SD 45.8 fl (35.1-43.9); Red Blood Count 3.16 M/mm3 (4.2-5.4); White Blood Count 19.8 K/mm3 (4.4-11.0)
[2018-10-25 20:30] LABS: Scan Indicated on CBC? Y/N NO
[2018-10-25 20:35] LABS: International Normalized Ratio 1.2; Prothrombin Time (Protime)PT. 14.9 SECONDS (11.7-14.9)
--- NOTE | 2018-10-25 20:35 | NURSING ---
Notes for time in OR 10/25/18 starting at 1813 1813 - request to cross and hold another 2 units of blood (in addition to 2 units crossed and held prior to surgery). Order to tranfuse 2 units., Methylene blue prepped and administered to check bladder per otis coughlin. 300 cc placed into orellana tube. No staining noted in abd. 1814-phone call to die engraving supervisor - pt. to get blood, calling for second surgeon to come in 1815- phone call to lab to request 2 units be ready to transfuse 1816 - phone call to lab to order Code Cardinal as ordered per Dr. Solis 1818-Fifi to lab for blood 1822- Order to transfuse 4 units of blood, and requesting for ffp to be available 1824-Phone call from lab - ffp will be ready in 20 min 1831-loader operator called to place page to Dr. Bassett 1833-Dr. Bassett called to unit-phone held to Dr. Solis's ear- request for her to come to OR to assess bladder 1833-blood started, see anesthesia record for 4 units transfused 1842-OR staff called in for possible impending hysterectomy per supervisor vat house 185-decision made for hysterectomy 1902-Ophthalmic Dispenser called, plan for pt. to go to ICU post-op 1905- OR team arrived to take over for hysterectomy case 1924-art. line placed per Dr. lAex Ramsay, labs drawn from this @ 1927 1916-ffp #1 started, see anesthesia record for 2 units transfused See anesthesia record and Hemorrhage checklist for additional information
[2018-10-25 20:36] LABS: Partial Thromboplast Time 26.3 Seconds (24.1-36.2)
[2018-10-25 20:42] LABS: ALB/GLOB Ratio 0.8 RATIO (0.9-2.4); AST(SGOT) 15 U/L (15-37); Alanine Aminotransfer ALT/SGPT 11 U/L (13-56); Alkaline Phosphatase 84 U/L (45-117); Anion Gap 11 (5-15); BUN 8 mg/dL (7-18); BUN/Creat Ratio 16.9 RATIO (10-20); Calcium,Total 7.2 mg/dL (8.5-10.1); Chloride 109 mmol/L (98-107); Creatinine, Serum 0.47 mg/dL (0.55-1.02); EST Glomerular Filtration Rate 169 mL/min (>60); Est Glom Filt Rate - Afr Amer 205 mL/min (>60); Estimated Creatinine Clearance 191.22 ml/min; Globulin 2.6 g/dL (2.2-4.2); Glucose 95 mg/dL (74-106); Potassium 4.5 mmol/L (3.5-5.1); Protein, Total 4.6 g/dL (6.4-8.2); Sodium Level 140 mmol/L (136-145)
[2018-10-25] MEDS: Ondansetron 4 MG/2 ML Vial IV (21:27)
[2018-10-25] MEDS: 0.9% Saline Lock 10 ML Syringe IV ×2 (21:27→22:11)
[2018-10-25] MEDS: HYDROmorphone 0.5 MG/0.5 ML SYRINGE IV ×2 (21:40→22:05)
--- NOTE | 2018-10-25 21:41 | PCM.OPRPT ---
Problem List (1) Vasa previa Status: Acute (2) Contraception management Status: Acute Qualifiers: Comment: Nexplanon at 6 wk pp visit-do insurance auth after 11/06/18 (3) Antepartum cervical shortening Status: Acute Comment: given vaginal progesterone (4) Marginal insertion of umbilical cord Status: Acute Comment: growth US every 4 weeks (5) Status: Acute Qualifiers: Comment: declines genetic and NTD screening. anatomy scan reviewed (6) History of delivery, antepartum Status: Acute Comment: considering , education given (7) BMI 30.0-30.9,adult Status: Acute Comment: ordered 1 tm glucola (8) Supervision of normal Status: Acute Qualifiers: Comment: PRR SAI 12/10/18 boy Adolfo Choi Renzo Report of Operation Date of Procedure: 10/25/18 Pre-Operative Diagnosis: vasa previa Post-Operative Diagnosis: same plus hemorrhage secondary to abnormal vasculature. Surgery/Procedure Performed:: hysterectomy Description of Surgical Findings:: Anterior placenta and vasa previa, abnormal vessels in EMILY and vesicouterine adhesions. hemorrhage due to abnormal bleeding. farm equipment mechanic apprentice: Gil Graff farm equipment mechanic apprentice: Lacie Rodrigues Type of Anesthesia:: Spinal Special Medications: 4 u prbcs, 2 u ffp, cory Specimen's removed: male infant vertex presentation, uterus Drains: orellana Estimated Blood Loss (mL): 5500 Fluids Replaced: 4 L crystalloid, 4 U prbcs 2 U ffp Description of Procedure: Patient had been admitted for inpatient monitoring due to vasa previa status as recommended by maternal- medicine. In the late afternoon she noted brown discharge and passage of what looked like to be a mucous plug and so I contacted and controlled with maternal medicine and they recommended to proceed with delivery due to concern of her risk of labor. She was taken the operating room and spinal anesthesia was placed and found to be adequate. Patient was prepped and draped in normal sterile fashion in dorsal supine position. Pfannenstiel skin incision was made to the previous incision and carried through the underlying the fascia with a scalpel fascia was nicked in the midline incision extended laterally. Rectus bellies dissected off superiorly and peritoneum entered digitally incision stretched laterally. The uterus was noted to be very thin and bulbous appearing. Low transverse uterine incision was made with a scalpel and the placenta was encountered and the delivered through the placenta and the cord was clamped and cut and the was handed off to the ditcher. It was noted that there was a very dense adherent nature of the placenta to the uterus and the uterus was exteriorized and the placenta was carefully attempted to be removed from the uterus. Pieces of the placenta were removed and large abnormal vasculature was encountered in the lower uterine segment and very dense bladder adhesions were noted to be attached. Multiple passes were made with surgical towels to remove all remaining placenta and vasculature. Several vessels were noted to be traversing across the membranes over the cervix it was difficult to ascertain if everything had been removed. At this time an additional PEARL PELLER Dr. Hernandez was called in for assistance. Several [id number]-[id number]'s of 3-0 Monocryl were used to oversew the areas of abnormal vasculature in the lower uterine segment and 2 [place] stitches were placed on the right uterine artery with persistent bleeding noted. The lining of the uterus was still noted to be very raw and difficult to control bleeding in multiple areas particularly on the lower uterine segment. The bladder was dissected off sharply and there was a densely adherent portion that was unable to tell if the uterus was growing into the bladder and there was still adherent placenta present therefore the decision to call in uro-field service analyst Dr. Lacie Rodrigues was made. The bladder was backfilled with methylene blue and was noted to come up immediately to the operative area but everything was intact with no lacerations noted. throughout this process extensive blood loss was encountered and blood products were beginning to be replaced and a code cardinal and then a code Alcides was called in preparation for any additional blood product needs. The anesthesiologist had been called in prior to this also and was present and helping manage the patient. Due to the persistent bleeding and already extensive blood loss and unclear diagnosis of placental invasion into the uterus the decision for hysterectomy was made. This was discussed with the patient and her while she was still awake and she agreed to the procedure. The utero-ovarian ligament was skeletonized and transected and sutured with 0 Monocryl followed by the round ligament and then the uterine arteries were skeletonized bilaterally and clamped cut and suture ligated with [address] Rodrigues arrived and assisted in dissection of the lower uterine segment off of the bladder and the area of dense adhesions were noted to have abnormal blood vessels going to and from the bladder to the lower uterine segment which were transected and suture ligated with 2-0 Vicryl. The uterus was clamped and crossed at the base and suture ligated with 0 Monocryl's and additional [id number] sutures were placed across the cuff to obtain excellent hemostasis. Cory was placed over the operative areas due to a raw appearance but excellent hemostasis was noted. Ureters were palpated bilaterally noted to be inferior lateral to the operative field. Peritoneum was closed with 3-0 Monocryl fascia closed with 0 strata fix PDS and the subcutaneous tissue was approximated with 3-0 Monocryl and the skin was closed with 3-0 Monocryl. Steri-Strips and a silver Mepilex were applied and patient was taken to the ICU in stable condition. Labs have been checked every 30 minutes throughout the case and the most recent hemoglobin after transfusing with 4 units of packed red blood cells 2 units of FFP and 4 L of crystalloid had her hemoglobin at 9.7 and platelets at 205. Signout was given directly to Dr. Trung Saldivar and patient was checked on in the ICU and I discussed with the family the events of the evening. Grafts/Implants Used: none - Complications hemorrhage with abnormal vasculature, anemia secondary to acute blood loss
--- NOTE | 2018-10-25 21:52 | OP.PCM_ITS ---
Problem List (1) Vasa previa Status: Acute (2) Contraception management Status: Acute Qualifiers: Comment: Nexplanon at 6 wk pp visit-do insurance auth after 11/06/18 (3) Antepartum cervical shortening Status: Acute Comment: given vaginal progesterone (4) Marginal insertion of umbilical cord Status: Acute Comment: growth US every 4 weeks (5) Status: Acute Qualifiers: Comment: declines genetic and NTD screening. anatomy scan reviewed (6) History of delivery, antepartum Status: Acute Comment: considering , education given (7) BMI 30.0-30.9,adult Status: Acute Comment: ordered 1 tm glucola (8) Supervision of normal Status: Acute Qualifiers: Comment: PRR SAI 12/10/18 boy Adolfo Choi Renzo Report of Operation Date of Procedure: 10/25/18 Pre-Operative Diagnosis: vasa previa Post-Operative Diagnosis: same plus hemorrhage secondary to abnormal vasculature. Surgery/Procedure Performed:: hysterectomy Description of Surgical Findings:: Anterior placenta and vasa previa, abnormal vessels in EMILY and vesicouterine adhesions. hemorrhage due to abnormal bleeding. jail guard: Gil Graff jail guard: Lacie Rodrigues Type of Anesthesia:: Spinal Special Medications: 4 u prbcs, 2 u ffp, cory Specimen's removed: male infant vertex presentation, uterus Drains: orellana Estimated Blood Loss (mL): 5500 Fluids Replaced: 4 L crystalloid, 4 U prbcs 2 U ffp Description of Procedure: Patient had been admitted for inpatient monitoring due to vasa previa status as recommended by maternal- medicine. In the late afternoon she noted brown discharge and passage of what looked like to be a mucous plug and so I contacted and controlled with maternal medicine and they recommended to proceed with delivery due to concern of her risk of labor. She was taken the operating room and spinal anesthesia was placed and found to be adequate. Patient was prepped and draped in normal sterile fashion in dorsal supine position. Pfannenstiel skin incision was made to the previous incision and carried through the underlying the fascia with a scalpel fascia was nicked in the midline incision extended laterally. Rectus bellies dissected off superiorly and peritoneum entered digitally incision stretched laterally. The uterus was noted to be very thin and bulbous appearing. Low transverse uterine incision was made with a scalpel and the placenta was encountered and the delivered through the placenta and the cord was clamped and cut and the was handed off to the coverer. It was noted that there was a very dense adherent nature of the placenta to the uterus and the uterus was exteriorized and the placenta was carefully attempted to be removed from the uterus. Pieces of the placenta were removed and large abnormal vasculature was encountered in the lower uterine segment and very dense bladder adhesions were noted to be attached. Multiple passes were made with surgical towels to remove all remaining placenta and vasculature. Several vessels were noted to be traversing across the membranes over the cervix it was difficult to ascertain if everything had been removed. At this time an additional BIOSTATISTICS TEACHER Dr. Hernandez was called in for assistance. Several abimxr-nd-xanqx's of 3-0 Monocryl were used to oversew the areas of abnormal vasculature in the lower uterine segment and 2 [place] stitches were placed on the right uterine artery with persistent bleeding noted. The lining of the uterus was still noted to be very raw and difficult to control bleeding in multiple areas particularly on the lower uterine segment. The bladder was dissected off sharply and there was a densely adherent portion that was unable to tell if the uterus was growing into the bladder and there was still adherent placenta present therefore the decision to call in uro- senior php developer Dr. Lacie Rodrigues was made. The bladder was backfilled with methylene blue and was noted to come up immediately to the operative area but everything was intact with no lacerations noted. throughout this process extensive blood loss was encountered and blood products were beginning to be replaced and a code cardinal and then a code Alcides was called in preparation for any additional blood product needs. The anesthesiologist had been called in prior to this also and was present and helping manage the patient. Due to the persistent bleeding and already extensive blood loss and unclear diagnosis of placental invasion into the uterus the decision for hysterectomy was made. This was discussed with the patient and her while she was still awake and she agreed to the procedure. The utero-ovarian ligament was skeletonized and transected and sutured with 0 Monocryl followed by the round ligament and then the uterine arteries were skeletonized bilaterally and clamped cut and suture ligated with [address] Rodrigues arrived and assisted in dissection of the lower uterine segment off of the bladder and the area of dense adhesions were noted to have abnormal blood vessels going to and from the bladder to the lower uterine segment which were transected and suture ligated with 2-0 Vicryl. The uterus was clamped and crossed at the base and suture ligated with 0 Monocryl's and additional [id number]-hk-mpaei sutures were placed across the cuff to obtain excellent hemostasis. Cory was placed over the operative areas due to a raw appearance but excellent hemostasis was noted. Ureters were palpated bilaterally noted to be inferior lateral to the operative field. Peritoneum was closed with 3-0 Monocryl fascia closed with 0 strata fix PDS and the subcutaneous tissue was approximated with 3-0 Monocryl and the skin was closed with 3-0 Monocryl. Steri-Strips and a silver Mepilex were applied and patient was taken to the ICU in stable condition. Labs have been checked every 30 minutes throughout the case and the most recent hemoglobin after transfusing with 4 units of packed red blood cells 2 units of FFP and 4 L of crystalloid had her hemoglobin at 9.7 and platelets at 205. Signout was given directly to Dr. Trung Saldivar and patient was checked on in the ICU and I discussed with the family the events of the evening. Grafts/Implants Used: none - Complications hemorrhage with abnormal vasculature, anemia secondary to acute blood loss
--- NOTE | 2018-10-25 21:58 | NURSING ---
192 Report received from Radha Salcido in OR 1927 labs drawn by anesthesia 1931 second FFP hung by anesthesia 1939 Dr. Nieto left OR 1943 blood bank called to inform staff that blood products are available, Dr. Solis aware 1944 research contracts supervisor called for ICU bed placement
--- NOTE | 2018-10-25 22:00 | NURSING ---
2039 Report given to Lakesha Cuevas RN in ICU
[2018-10-26] VITALS (20 sets, daily range): BP systolic 93–130; BP diastolic 54–78; PULSE 95–133; RESP 13–22; TEMP 36.7–37.9; O2SAT 95–98
[2018-10-26 00:21] LABS: Hematocrit 28.6 % (37-47); Hemoglobin 9.7 g/dl (12.0-15.0)
[2018-10-26 00:29] LABS: Fibrinogen 304 mg/dl (203-444); International Normalized Ratio 1.1; Prothrombin Time (Protime)PT. 14.2 SECONDS (11.7-14.9)
[2018-10-26] MEDS: HYDROmorphone 0.5 MG/0.5 ML SYRINGE IV ×9 (01:02→11:50)
[2018-10-26] MEDS: 0.9% Saline Lock 10 ML Syringe IV ×9 (01:03→20:05)
[2018-10-26] MEDS: Ceftriaxone 1 GM/50 ML BAG IV (01:12)
[2018-10-26 01:55] LABS: Pathology Specimen OB SEE PATHOLOGY REPORT
[2018-10-26 04:30] LABS: Hematocrit 26.5 % (37-47); Mean Corpuscular Hgb 31.5 pg (27.0-32.0); Mean Corpuscular Volume 92.7 fL (81-99); Mean Platelet Vol. 8.2 fl (6.2-12.0); Platelet Count 214 K/mm3 (150-450); RBC Distribution Width CV 14.3 % (11.6-14.6); RBC Distribution Width SD 46.4 fl (35.1-43.9); Red Blood Count 2.86 M/mm3 (4.2-5.4); Scan Indicated on CBC? Y/N NO; White Blood Count 14.8 K/mm3 (4.4-11.0)
[2018-10-26 04:37] LABS: International Normalized Ratio 1.2; Prothrombin Time (Protime)PT. 14.8 SECONDS (11.7-14.9)
[2018-10-26 04:38] LABS: Fibrinogen 312 mg/dl (203-444); Partial Thromboplast Time 24.8 Seconds (24.1-36.2)
[2018-10-26 04:42] LABS: Anion Gap 8 (5-15); BUN 9 mg/dL (7-18); BUN/Creat Ratio 19.5 RATIO (10-20); Calcium,Total 7.5 mg/dL (8.5-10.1); Chloride 108 mmol/L (98-107); Creatinine, Serum 0.46 mg/dL (0.55-1.02); EST Glomerular Filtration Rate 175 mL/min (>60); Est Glom Filt Rate - Afr Amer 212 mL/min (>60); Estimated Creatinine Clearance 195.38 ml/min; Glucose 84 mg/dL (74-106); Potassium 4.1 mmol/L (3.5-5.1); Sodium Level 142 mmol/L (136-145)
--- NOTE | 2018-10-26 07:16 | PCM.CON.CC ---
Reason for Consult Date of Consultation: 10/26/18 Reason for Consultation: Acute blood loss anemia History of Present Illness: The patient is a 23-year-old female, with a history as outlined below, who [facility] due to being high risk secondary to the presence of a placenta previa, which was then complicated by a vasa previa. The patient was noted to be 33 weeks gestational age with a previous uncomplicated . The patient was monitored daily on the inpatient setting on the afternoon of October 25 developed brown vaginal discharge. Due to concern for labor, the patient was taken to the OR to proceed with delivery. The baby was able to be delivered without complication. However, the patient went on to develop hemorrhage with abnormal vasculature noted and subsequently developed acute blood loss anemia. She received a total of 4 L of fluid intraoperatively along with 4 units of packed red blood cells and 2 units of fresh frozen plasma. Significant intraoperative blood loss was noted. The patient was subsequently transferred to the medical intensive care unit postoperatively for further management. Despite the aforementioned, the patient remained hemodynamically stable without further sequelae of ongoing blood loss. No overnight issues were identified by the nursing staff. The patient's only issue this morning is for that of pain. She remains hemodynamically stable on room air. The patient's blood counts have been normal. Her coagulation profile has been within normal limits. Her last fibrinogen level was noted to be 312. Chemistry profile is unremarkable. 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 Allergies No Known Allergies Allergy (Verified 10/15/18 08:23) Home Medications: Ambulatory Orders Medication Instructions Recorded vit 123-iron 28 mg-folic 1 cap PO QDAY 05/07/18 acid 800 [id number] 235 mg capsule Famotidine 40 mg PO DAILY 09/08/18 Progesterone, Micronized 200 mg VAGINAL DAILY 09/11/18 [Prometrium] Sertraline HCl [Zoloft] 50 mg PO QDAY 10/15/18 Surgical History: Surgical History (Last Reviewed 10/01/18 @ 15:57 by Lorelei Grant) H/O section Onset Date: Z98.891 Smoking Status: Never smoker Alcohol: None Review of Systems Constitutional: Denies: Chills, Fever Eyes: Denies: Blurred vision, Double vision HEENT: Denies: Head Aches, Sinus Congestion, Sinus Drainage Cardiovascular: Denies: Chest Pain, Palpitations Respiratory: Denies: Cough, Shortness of breath at rest, Sputum production Gastrointestinal: Reports: Abdominal Pain. Denies: Nausea, Vomiting Genitourinary: Denies: Dysuria Musculoskeletal: Denies: Joint Pain, Joint Tenderness Skin: Denies: Rash, Wounds Neurological: Denies: Numbness, Tingling, Focal weakness Psychiatric: Denies: Anxiety, Depression, Homicidal Ideations, Suicidal Ideations Hematologic/ Lymphatic: Reports: Anemia, Hx of blood transfusion Objective: The patient's most recent lab work, culture data and imaging studies have all been personally reviewed. - Physical Exam General: Alert, Oriented x3, Cooperative, No apparent distress HEENT: Atraumatic, PERRLA, Normocephalic Oral: No Gingival or Mucosal Lesions/ Ulcerations Neck: Supple, No Nodes, Trachea Midline Lungs: Normal air movement, No rhonchi, No wheeze, No rales, - - Somewhat limited inspiratory effort due to pain. Cardiovascular: Normal S1, Normal S2, No murmurs, Tachycardic Abdomen: Soft, Non-Distended, Hypoactive Bowel Sounds Extremities: No clubbing, No cyanosis, No edema Skin: No breakdown Musculoskeletal: No Tenderness to Palpation of Joints or Extremities, No Muscle Wasting Lymphatic: No Cervical, Supraclavicular, or Inguinal Adenopathy Neurological: Cranial nerves II-XII grossly intact, Neuro grossly intact Psych/Mental Status: Alert and oriented to time, place, person, mood and affect Vital Signs Temp Pulse Resp BP Pulse Ox 37.1 C 103 H 15 108/62 96 10/26/18 04:00 10/26/18 06:00 10/26/18 06:00 10/26/18 06:00 10/26/18 06:00 Oxygen Delivery Method Room Air Weight: 226 lb 3.108 oz Body Mass Index (BMI) 33.3 Intake and Output for Last 24 Hours 10/24/18 10/25/18 10/26/18 23:59 23:59 23:59 Intake Total 4000 / 4000 848 / 848 Output Total 200 / 200 200 / 200 Balance 3800 / 3800 648 / 648 Laboratory Tests Past 24 Hrs 10/25/18 10/25/18 10/25/18 10:15 10:15 18:18 WBC RBC Hgb Hct MCV MCH MCHC RDW RDW Differential Plt Count MPV Immature Gran % (Auto) Neut % (Auto) Lymph % (Auto) [place] % (Auto) Eos % (Auto) Baso % (Auto) Absolute Neuts (auto) Absolute Lymphs (auto) Total Counted Differential Comment PT INR APTT Fibrinogen Sodium Potassium Chloride Carbon Dioxide Anion Gap BUN Creatinine Estim Creat Clear Calc Est GFR (MDRD) Af Amer Est GFR (MDRD) Non-Af BUN/Creatinine Ratio Glucose Calcium Total Bilirubin AST ALT Alkaline Phosphatase Total Protein Albumin Globulin Albumin/Globulin Ratio Crossmatch See Detail See Detail See Detail 10/25/18 10/25/18 10/25/18 18:28 18:28 18:42 WBC 12.6 H RBC 3.01 L Hgb 9.5 L Hct 28.5 L MCV 94.7 MCH 31.6 MCHC 33.3 RDW 13.0 RDW Differential 44.5 H Plt Count 304 MPV 8.5 Immature Gran % (Auto) 0.200 Neut % (Auto) 71.5 H Lymph % (Auto) 18.2 L [place] % (Auto) 9.4 Eos % (Auto) 0.5 Baso % (Auto) 0.2 Absolute Neuts (auto) 9.0 H Absolute Lymphs (auto) 2.28 Total Counted Not Reportable Differential Comment PT 14.6 INR 1.1 APTT 24.1 Fibrinogen 382 Sodium Potassium Chloride Carbon Dioxide Anion Gap BUN Creatinine Estim Creat Clear Calc Est GFR (MDRD) Af Amer Est GFR (MDRD) Non-Af BUN/Creatinine Ratio Glucose Calcium Total Bilirubin AST ALT Alkaline Phosphatase Total Protein Albumin Globulin Albumin/Globulin Ratio Crossmatch See Detail 10/25/18 10/25/18 10/25/18 19:28 19:28 20:10 WBC 26.9 H RBC 3.57 L Hgb 10.9 L Hct 32.9 L MCV 92.2 MCH 30.5 MCHC 33.1 RDW 13.7 RDW Differential 45.8 H Plt Count 219 MPV 8.1 Immature Gran % (Auto) 0.300 Neut % (Auto) 82.8 H Lymph % (Auto) 9.3 L [place] % (Auto) 7.4 Eos % (Auto) 0.1 Baso % (Auto) 0.1 Absolute Neuts (auto) 22.3 H Absolute Lymphs (auto) 2.50 Total Counted Not Reportable Differential Comment SCANNED PT 14.7 14.9 INR 1.2 1.2 APTT 26.2 26.3 Fibrinogen 329 Sodium Potassium Chloride Carbon Dioxide Anion Gap BUN Creatinine Estim Creat Clear Calc Est GFR (MDRD) Af Amer Est GFR (MDRD) Non-Af BUN/Creatinine Ratio Glucose Calcium Total Bilirubin AST ALT Alkaline Phosphatase Total Protein Albumin Globulin Albumin/Globulin Ratio Crossmatch 10/25/18 10/25/18 10/26/18 20:10 20:10 00:10 WBC 19.8 H RBC 3.16 L Hgb 9.7 L 9.7 L Hct 28.9 L 28.6 L MCV 91.5 MCH 30.7 MCHC 33.6 RDW 13.8 RDW Differential 45.8 H Plt Count 205 MPV 8.1 Immature Gran % (Auto) Neut % (Auto) Lymph % (Auto) [place] % (Auto) Eos % (Auto) Baso % (Auto) Absolute Neuts (auto) Absolute Lymphs (auto) Total Counted Differential Comment PT INR APTT Fibrinogen Sodium 140 Potassium 4.5 Chloride 109 H Carbon Dioxide 20.0 L Anion Gap 11 BUN 8 Creatinine 0.47 L Estim Creat Clear Calc 191.22 Est GFR (MDRD) Af Amer 205 Est GFR (MDRD) Non-Af 169 BUN/Creatinine Ratio 16.9 Glucose 95 Calcium 7.2 L Total Bilirubin 0.60 AST 15 ALT 11 L Alkaline Phosphatase 84 Total Protein 4.6 L Albumin 2.0 L Globulin 2.6 Albumin/Globulin Ratio 0.8 L Crossmatch 10/26/18 10/26/18 10/26/18 00:10 04:15 04:15 WBC 14.8 H RBC 2.86 L Hgb 9.0 L Hct 26.5 L MCV 92.7 MCH 31.5 MCHC 34.0 RDW 14.3 RDW Differential 46.4 H Plt Count 214 MPV 8.2 Immature Gran % (Auto) Neut % (Auto) Lymph % (Auto) [place] % (Auto) Eos % (Auto) Baso % (Auto) Absolute Neuts (auto) Absolute Lymphs (auto) Total Counted Differential Comment PT 14.2 14.8 INR 1.1 1.2 APTT 23.0 L 24.8 Fibrinogen 304 312 Sodium Potassium Chloride Carbon Dioxide Anion Gap BUN Creatinine Estim Creat Clear Calc Est GFR (MDRD) Af Amer Est GFR (MDRD) Non-Af BUN/Creatinine Ratio Glucose Calcium Total Bilirubin AST ALT Alkaline Phosphatase Total Protein Albumin Globulin Albumin/Globulin Ratio Crossmatch 10/26/18 04:15 WBC RBC Hgb Hct MCV MCH MCHC RDW RDW Differential Plt Count MPV Immature Gran % (Auto) Neut % (Auto) Lymph % (Auto) [place] % (Auto) Eos % (Auto) Baso % (Auto) Absolute Neuts (auto) Absolute Lymphs (auto) Total Counted Differential Comment PT INR APTT Fibrinogen Sodium 142 Potassium 4.1 Chloride 108 H Carbon Dioxide 26.0 Anion Gap 8 BUN 9 Creatinine 0.46 L Estim Creat Clear Calc 195.38 Est GFR (MDRD) Af Amer 212 Est GFR (MDRD) Non-Af 175 BUN/Creatinine Ratio 19.5 Glucose 84 Calcium 7.5 L Total Bilirubin AST ALT Alkaline Phosphatase Total Protein Albumin Globulin Albumin/Globulin Ratio Crossmatch Clinical Impression(s) from Imaging Studies Biophysical Profile Ultrasound 10/15/18 08:50 IMPRESSION: Normal biophysical profile of 8. Electronically Signed: Karthikeyan Kruse MD at 11:22 EST Tel [phone], Service support , Biophysical Profile Ultrasound 10/18/18 07:24 IMPRESSION: Normal biophysical profile of 8/8. Electronically Signed: Karthikeyan Kruse MD at 13:35 EST Tel [phone], Service support , Biophysical Profile Ultrasound 10/22/18 09:45 IMPRESSION: Normal biophysical profile of 8/8. Electronically Signed: Karthikeyan Kruse MD at 14:30 EST Tel [phone], Service support , Biophysical Profile Ultrasound 10/25/18 10:37 IMPRESSION: Normal biophysical profile of 8/8. Electronically Signed: Taj Key MD at 20:02 EST , Service support , KUB X-Ray 10/25/18 20:10 IMPRESSION: Normal x-ray examination of the abdomen and pelvis. No radiopaque foreign body is identified. Electronically Signed: Taj Key MD at 21:03 EST , Service support , Assessment/Plan RECOMMENDATIONS: 1. Repeat CBC this morning around 10 AM. 2. If blood counts remain stable, will consider initiation of DVT prophylaxis with subcutaneous Lovenox. 3. Pain control with Dilaudid as ordered. Bowel regimen already in place. 4. Encourage aggressive incentive spirometer use while in bed. IMPRESSIONS: 1. Acute blood loss anemia due to hemorrhage, now POD #1 status post hysterectomy The patient's recent was complicated by an anterior placenta and vasa previa, which resulted in acute blood loss anemia due to hemorrhage. The patient was aggressively fluid resuscitated and received blood products accordingly. She has remained hemodynamically stable and her blood counts have stabilized. Her pain is currently controlled. Would recommend rechecking a CBC at 10 AM. If the patient's blood counts remained stable, we will plan to start subcutaneous DVT prophylaxis with Lovenox. The patient has been encouraged to utilize her incentive spirometer while in bed. If the patient remains clinically stable throughout the afternoon, she can be [facility]. This note was generated with [employer] dictation software. It may contain incorrect words, spelling, and punctuation that were not noted in checking the note before signing. Code Visit Inpatient E&M: 37241 Init Hosp L3
--- NOTE | 2018-10-26 07:21 | CON.PCM_ITS ---
Reason for Consult Date of Consultation: 10/26/18 Reason for Consultation: Acute blood loss anemia History of Present Illness: The patient is a 23-year-old female, with a history as outlined below, who was [facility] on October 15 due to being high risk secondary to the presence of a placenta previa, which was then complicated by a vasa previa. The patient was noted to be 33 weeks gestational age with a previous uncomplicated . The patient was monitored daily on the inpatient setting on the afternoon of October 25 developed brown vaginal discharge. Due to concern for labor, the patient was taken to the OR to proceed with delivery. The baby was able to be delivered without complication. However, the patient went on to develop hemorrhage with abnormal vasculature noted and subsequently developed acute blood loss anemia. She received a total of 4 L of fluid intraoperatively along with 4 units of packed red blood cells and 2 units of fresh frozen plasma. Significant intraoperative blood loss was noted. The patient was subsequently transferred to the medical intensive care unit postoperatively for further management. Despite the aforementioned, the patient remained hemodynamically stable without further sequelae of ongoing blood loss. No overnight issues were identified by the nursing staff. The patient's only issue this morning is for that of pain. She remains hemodynamically stable on room air. The patient's blood counts have been normal. Her coagulation profile has been within normal limits. Her last fibrinogen level was noted to be 312. Chemistry profile is unremarkable. 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 Allergies No Known Allergies Allergy (Verified 10/15/18 08:23) Home Medications: Ambulatory Orders Medication Instructions Recorded vit 123-iron 28 mg-folic 1 cap PO QDAY 05/07/18 acid 800 [id number] 235 mg capsule Famotidine 40 mg PO DAILY 09/08/18 Progesterone, Micronized 200 mg VAGINAL DAILY 09/11/18 [Prometrium] Sertraline HCl [Zoloft] 50 mg PO QDAY 10/15/18 Surgical History: Surgical History (Last Reviewed 10/01/18 @ 15:57 by Lorelei Grant) H/O section Onset Date: Z98.891 Smoking Status: Never smoker Alcohol: None Review of Systems Constitutional: Denies: Chills, Fever Eyes: Denies: Blurred vision, Double vision HEENT: Denies: Head Aches, Sinus Congestion, Sinus Drainage Cardiovascular: Denies: Chest Pain, Palpitations Respiratory: Denies: Cough, Shortness of breath at rest, Sputum production Gastrointestinal: Reports: Abdominal Pain. Denies: Nausea, Vomiting Genitourinary: Denies: Dysuria Musculoskeletal: Denies: Joint Pain, Joint Tenderness Skin: Denies: Rash, Wounds Neurological: Denies: Numbness, Tingling, Focal weakness Psychiatric: Denies: Anxiety, Depression, Homicidal Ideations, Suicidal Ideations Hematologic/ Lymphatic: Reports: Anemia, Hx of blood transfusion Objective: The patient's most recent lab work, culture data and imaging studies have all been personally reviewed. - Physical Exam General: Alert, Oriented x3, Cooperative, No apparent distress HEENT: Atraumatic, PERRLA, Normocephalic Oral: No Gingival or Mucosal Lesions/ Ulcerations Neck: Supple, No Nodes, Trachea Midline Lungs: Normal air movement, No rhonchi, No wheeze, No rales, - - Somewhat limited inspiratory effort due to pain. Cardiovascular: Normal S1, Normal S2, No murmurs, Tachycardic Abdomen: Soft, Non-Distended, Hypoactive Bowel Sounds Extremities: No clubbing, No cyanosis, No edema Skin: No breakdown Musculoskeletal: No Tenderness to Palpation of Joints or Extremities, No Muscle Wasting Lymphatic: No Cervical, Supraclavicular, or Inguinal Adenopathy Neurological: Cranial nerves II-XII grossly intact, Neuro grossly intact Psych/Mental Status: Alert and oriented to time, place, person, mood and affect Vital Signs Temp Pulse Resp BP Pulse Ox 37.1 C 103 H 15 108/62 96 10/26/18 04:00 10/26/18 06:00 10/26/18 06:00 10/26/18 06:00 10/26/18 06:00 Oxygen Delivery Method Room Air Weight: 226 lb 3.108 oz Body Mass Index (BMI) 33.3 Intake and Output for Last 24 Hours 10/24/18 10/25/18 10/26/18 23:59 23:59 23:59 Intake Total 4000 / 4000 848 / 848 Output Total 200 / 200 200 / 200 Balance 3800 / 3800 648 / 648 Laboratory Tests Past 24 Hrs 10/25/18 10/25/18 10/25/18 10:15 10:15 18:18 WBC RBC Hgb Hct MCV MCH MCHC RDW RDW Differential Plt Count MPV Immature Gran % (Auto) Neut % (Auto) Lymph % (Auto) [place] % (Auto) Eos % (Auto) Baso % (Auto) Absolute Neuts (auto) Absolute Lymphs (auto) Total Counted Differential Comment PT INR APTT Fibrinogen Sodium Potassium Chloride Carbon Dioxide Anion Gap BUN Creatinine Estim Creat Clear Calc Est GFR (MDRD) Af Amer Est GFR (MDRD) Non-Af BUN/Creatinine Ratio Glucose Calcium Total Bilirubin AST ALT Alkaline Phosphatase Total Protein Albumin Globulin Albumin/Globulin Ratio Crossmatch See Detail See Detail See Detail 10/25/18 10/25/18 10/25/18 18:28 18:28 18:42 WBC 12.6 H RBC 3.01 L Hgb 9.5 L Hct 28.5 L MCV 94.7 MCH 31.6 MCHC 33.3 RDW 13.0 RDW Differential 44.5 H Plt Count 304 MPV 8.5 Immature Gran % (Auto) 0.200 Neut % (Auto) 71.5 H Lymph % (Auto) 18.2 L [place] % (Auto) 9.4 Eos % (Auto) 0.5 Baso % (Auto) 0.2 Absolute Neuts (auto) 9.0 H Absolute Lymphs (auto) 2.28 Total Counted Not Reportable Differential Comment PT 14.6 INR 1.1 APTT 24.1 Fibrinogen 382 Sodium Potassium Chloride Carbon Dioxide Anion Gap BUN Creatinine Estim Creat Clear Calc Est GFR (MDRD) Af Amer Est GFR (MDRD) Non-Af BUN/Creatinine Ratio Glucose Calcium Total Bilirubin AST ALT Alkaline Phosphatase Total Protein Albumin Globulin Albumin/Globulin Ratio Crossmatch See Detail 10/25/18 10/25/18 10/25/18 19:28 19:28 20:10 WBC 26.9 H RBC 3.57 L Hgb 10.9 L Hct 32.9 L MCV 92.2 MCH 30.5 MCHC 33.1 RDW 13.7 RDW Differential 45.8 H Plt Count 219 MPV 8.1 Immature Gran % (Auto) 0.300 Neut % (Auto) 82.8 H Lymph % (Auto) 9.3 L [place] % (Auto) 7.4 Eos % (Auto) 0.1 Baso % (Auto) 0.1 Absolute Neuts (auto) 22.3 H Absolute Lymphs (auto) 2.50 Total Counted Not Reportable Differential Comment SCANNED PT 14.7 14.9 INR 1.2 1.2 APTT 26.2 26.3 Fibrinogen 329 Sodium Potassium Chloride Carbon Dioxide Anion Gap BUN Creatinine Estim Creat Clear Calc Est GFR (MDRD) Af Amer Est GFR (MDRD) Non-Af BUN/Creatinine Ratio Glucose Calcium Total Bilirubin AST ALT Alkaline Phosphatase Total Protein Albumin Globulin Albumin/Globulin Ratio Crossmatch 10/25/18 10/25/18 10/26/18 20:10 20:10 00:10 WBC 19.8 H RBC 3.16 L Hgb 9.7 L 9.7 L Hct 28.9 L 28.6 L MCV 91.5 MCH 30.7 MCHC 33.6 RDW 13.8 RDW Differential 45.8 H Plt Count 205 MPV 8.1 Immature Gran % (Auto) Neut % (Auto) Lymph % (Auto) [place] % (Auto) Eos % (Auto) Baso % (Auto) Absolute Neuts (auto) Absolute Lymphs (auto) Total Counted Differential Comment PT INR APTT Fibrinogen Sodium 140 Potassium 4.5 Chloride 109 H Carbon Dioxide 20.0 L Anion Gap 11 BUN 8 Creatinine 0.47 L Estim Creat Clear Calc 191.22 Est GFR (MDRD) Af Amer 205 Est GFR (MDRD) Non-Af 169 BUN/Creatinine Ratio 16.9 Glucose 95 Calcium 7.2 L Total Bilirubin 0.60 AST 15 ALT 11 L Alkaline Phosphatase 84 Total Protein 4.6 L Albumin 2.0 L Globulin 2.6 Albumin/Globulin Ratio 0.8 L Crossmatch 10/26/18 10/26/18 10/26/18 00:10 04:15 04:15 WBC 14.8 H RBC 2.86 L Hgb 9.0 L Hct 26.5 L MCV 92.7 MCH 31.5 MCHC 34.0 RDW 14.3 RDW Differential 46.4 H Plt Count 214 MPV 8.2 Immature Gran % (Auto) Neut % (Auto) Lymph % (Auto) [place] % (Auto) Eos % (Auto) Baso % (Auto) Absolute Neuts (auto) Absolute Lymphs (auto) Total Counted Differential Comment PT 14.2 14.8 INR 1.1 1.2 APTT 23.0 L 24.8 Fibrinogen 304 312 Sodium Potassium Chloride Carbon Dioxide Anion Gap BUN Creatinine Estim Creat Clear Calc Est GFR (MDRD) Af Amer Est GFR (MDRD) Non-Af BUN/Creatinine Ratio Glucose Calcium Total Bilirubin AST ALT Alkaline Phosphatase Total Protein Albumin Globulin Albumin/Globulin Ratio Crossmatch 10/26/18 04:15 WBC RBC Hgb Hct MCV MCH MCHC RDW RDW Differential Plt Count MPV Immature Gran % (Auto) Neut % (Auto) Lymph % (Auto) [place] % (Auto) Eos % (Auto) Baso % (Auto) Absolute Neuts (auto) Absolute Lymphs (auto) Total Counted Differential Comment PT INR APTT Fibrinogen Sodium 142 Potassium 4.1 Chloride 108 H Carbon Dioxide 26.0 Anion Gap 8 BUN 9 Creatinine 0.46 L Estim Creat Clear Calc 195.38 Est GFR (MDRD) Af Amer 212 Est GFR (MDRD) Non-Af 175 BUN/Creatinine Ratio 19.5 Glucose 84 Calcium 7.5 L Total Bilirubin AST ALT Alkaline Phosphatase Total Protein Albumin Globulin Albumin/Globulin Ratio Crossmatch Clinical Impression(s) from Imaging Studies Biophysical Profile Ultrasound 10/15/18 08:50 IMPRESSION: Normal biophysical profile of 8. Electronically Signed: Karthikeyan Kruse MD at 11:22 EST Tel [phone], Service support , Biophysical Profile Ultrasound 10/18/18 07:24 IMPRESSION: Normal biophysical profile of 8/8. Electronically Signed: Karthikeyan Kruse MD at 13:35 EST Tel [phone], Service support , Biophysical Profile Ultrasound 10/22/18 09:45 IMPRESSION: Normal biophysical profile of 8/8. Electronically Signed: Karthikeyan Kruse MD at 14:30 EST Tel [phone], Service support , Biophysical Profile Ultrasound 10/25/18 10:37 IMPRESSION: Normal biophysical profile of 8/8. Electronically Signed: Taj Key MD at 20:02 EST , Service support , KUB X-Ray 10/25/18 20:10 IMPRESSION: Normal x-ray examination of the abdomen and pelvis. No radiopaque foreign body is identified. Electronically Signed: Taj Key MD at 21:03 EST , Service support , Assessment/Plan RECOMMENDATIONS: 1. Repeat CBC this morning around 10 AM. 2. If blood counts remain stable, will consider initiation of DVT prophylaxis with subcutaneous Lovenox. 3. Pain control with Dilaudid as ordered. Bowel regimen already in place. 4. Encourage aggressive incentive spirometer use while in bed. IMPRESSIONS: 1. Acute blood loss anemia due to hemorrhage, now POD #1 status post hysterectomy The patient's recent was complicated by an anterior placenta and vasa previa, which resulted in acute blood loss anemia due to hemorrhage. The patient was aggressively fluid resuscitated and received blood products accordingly. She has remained hemodynamically stable and her blood counts have stabilized. Her pain is currently controlled. Would recommend rechecking a CBC at 10 AM. If the patient's blood counts remained stable, we will plan to start subcutaneous DVT prophylaxis with Lovenox. The patient has been encouraged to utilize her incentive spirometer while in bed. If the patient remains clinically stable throughout the afternoon, she can be transferred [facility]. This note was generated with [employer] dictation software. It may contain incorrect words, spelling, and punctuation that were not noted in checking the note before signing. Code Visit Inpatient E&M: 88821 Init Hosp L3
--- NOTE | 2018-10-26 08:38 | PCM.PN.OB ---
Subjective: pain controlled no CP SOB N V vaginal bleeding minimal. minimal intermittent tachycardia. discussed surgery again with patient, all questions answered. discussed with nursing and ICU attending and patient doing well- continue to monitor blood/fluid status. - Physical Exam General: Alert, Oriented x3, No apparent distress HEENT: Atraumatic, Normocephalic Lungs: Normal air movement Cardiovascular: Regular rate, Tachycardic Abdomen: Soft, Non Tender Vital Signs Temp Pulse Resp BP Pulse Ox 98.7 F 112 H 19 H 101/70 97 10/26/18 04:00 10/26/18 08:00 10/26/18 08:00 10/26/18 08:00 10/26/18 08:00 Oxygen Delivery Method Room Air Weight: 226 lb 3.108 oz Body Mass Index (BMI) 33.3 Intake and Output for Last 24 Hours 10/24/18 10/25/18 10/26/18 23:59 23:59 23:59 Intake Total 4000 / 4000 848 / 848 Output Total 200 / 200 200 / 200 Balance 3800 / 3800 648 / 648 Laboratory Tests Past 24 Hrs 10/25/18 10/25/18 10/25/18 10:15 10:15 18:18 WBC RBC Hgb Hct MCV MCH MCHC RDW RDW Differential Plt Count MPV Immature Gran % (Auto) Neut % (Auto) Lymph % (Auto) [place] % (Auto) Eos % (Auto) Baso % (Auto) Absolute Neuts (auto) Absolute Lymphs (auto) Total Counted Differential Comment PT INR APTT Fibrinogen Sodium Potassium Chloride Carbon Dioxide Anion Gap BUN Creatinine Estim Creat Clear Calc Est GFR (MDRD) Af Amer Est GFR (MDRD) Non-Af BUN/Creatinine Ratio Glucose Calcium Total Bilirubin AST ALT Alkaline Phosphatase Total Protein Albumin Globulin Albumin/Globulin Ratio Crossmatch See Detail See Detail See Detail 10/25/18 10/25/18 10/25/18 18:28 18:28 18:42 WBC 12.6 H RBC 3.01 L Hgb 9.5 L Hct 28.5 L MCV 94.7 MCH 31.6 MCHC 33.3 RDW 13.0 RDW Differential 44.5 H Plt Count 304 MPV 8.5 Immature Gran % (Auto) 0.200 Neut % (Auto) 71.5 H Lymph % (Auto) 18.2 L [place] % (Auto) 9.4 Eos % (Auto) 0.5 Baso % (Auto) 0.2 Absolute Neuts (auto) 9.0 H Absolute Lymphs (auto) 2.28 Total Counted Not Reportable Differential Comment PT 14.6 INR 1.1 APTT 24.1 Fibrinogen 382 Sodium Potassium Chloride Carbon Dioxide Anion Gap BUN Creatinine Estim Creat Clear Calc Est GFR (MDRD) Af Amer Est GFR (MDRD) Non-Af BUN/Creatinine Ratio Glucose Calcium Total Bilirubin AST ALT Alkaline Phosphatase Total Protein Albumin Globulin Albumin/Globulin Ratio Crossmatch See Detail 10/25/18 10/25/18 10/25/18 19:28 19:28 20:10 WBC 26.9 H RBC 3.57 L Hgb 10.9 L Hct 32.9 L MCV 92.2 MCH 30.5 MCHC 33.1 RDW 13.7 RDW Differential 45.8 H Plt Count 219 MPV 8.1 Immature Gran % (Auto) 0.300 Neut % (Auto) 82.8 H Lymph % (Auto) 9.3 L [place] % (Auto) 7.4 Eos % (Auto) 0.1 Baso % (Auto) 0.1 Absolute Neuts (auto) 22.3 H Absolute Lymphs (auto) 2.50 Total Counted Not Reportable Differential Comment SCANNED PT 14.7 14.9 INR 1.2 1.2 APTT 26.2 26.3 Fibrinogen 329 Sodium Potassium Chloride Carbon Dioxide Anion Gap BUN Creatinine Estim Creat Clear Calc Est GFR (MDRD) Af Amer Est GFR (MDRD) Non-Af BUN/Creatinine Ratio Glucose Calcium Total Bilirubin AST ALT Alkaline Phosphatase Total Protein Albumin Globulin Albumin/Globulin Ratio Crossmatch 10/25/18 10/25/18 10/26/18 20:10 20:10 00:10 WBC 19.8 H RBC 3.16 L Hgb 9.7 L 9.7 L Hct 28.9 L 28.6 L MCV 91.5 MCH 30.7 MCHC 33.6 RDW 13.8 RDW Differential 45.8 H Plt Count 205 MPV 8.1 Immature Gran % (Auto) Neut % (Auto) Lymph % (Auto) [place] % (Auto) Eos % (Auto) Baso % (Auto) Absolute Neuts (auto) Absolute Lymphs (auto) Total Counted Differential Comment PT INR APTT Fibrinogen Sodium 140 Potassium 4.5 Chloride 109 H Carbon Dioxide 20.0 L Anion Gap 11 BUN 8 Creatinine 0.47 L Estim Creat Clear Calc 191.22 Est GFR (MDRD) Af Amer 205 Est GFR (MDRD) Non-Af 169 BUN/Creatinine Ratio 16.9 Glucose 95 Calcium 7.2 L Total Bilirubin 0.60 AST 15 ALT 11 L Alkaline Phosphatase 84 Total Protein 4.6 L Albumin 2.0 L Globulin 2.6 Albumin/Globulin Ratio 0.8 L Crossmatch 10/26/18 10/26/18 10/26/18 00:10 04:15 04:15 WBC 14.8 H RBC 2.86 L Hgb 9.0 L Hct 26.5 L MCV 92.7 MCH 31.5 MCHC 34.0 RDW 14.3 RDW Differential 46.4 H Plt Count 214 MPV 8.2 Immature Gran % (Auto) Neut % (Auto) Lymph % (Auto) [place] % (Auto) Eos % (Auto) Baso % (Auto) Absolute Neuts (auto) Absolute Lymphs (auto) Total Counted Differential Comment PT 14.2 14.8 INR 1.1 1.2 APTT 23.0 L 24.8 Fibrinogen 304 312 Sodium Potassium Chloride Carbon Dioxide Anion Gap BUN Creatinine Estim Creat Clear Calc Est GFR (MDRD) Af Amer Est GFR (MDRD) Non-Af BUN/Creatinine Ratio Glucose Calcium Total Bilirubin AST ALT Alkaline Phosphatase Total Protein Albumin Globulin Albumin/Globulin Ratio Crossmatch 10/26/18 04:15 WBC RBC Hgb Hct MCV MCH MCHC RDW RDW Differential Plt Count MPV Immature Gran % (Auto) Neut % (Auto) Lymph % (Auto) [place] % (Auto) Eos % (Auto) Baso % (Auto) Absolute Neuts (auto) Absolute Lymphs (auto) Total Counted Differential Comment PT INR APTT Fibrinogen Sodium 142 Potassium 4.1 Chloride 108 H Carbon Dioxide 26.0 Anion Gap 8 BUN 9 Creatinine 0.46 L Estim Creat Clear Calc 195.38 Est GFR (MDRD) Af Amer 212 Est GFR (MDRD) Non-Af 175 BUN/Creatinine Ratio 19.5 Glucose 84 Calcium 7.5 L Total Bilirubin AST ALT Alkaline Phosphatase Total Protein Albumin Globulin Albumin/Globulin Ratio Crossmatch Medical Necessity - Tobacco Use Smoking Status: Never smoker Assessment/Plan All Active Problems (Last Reviewed 10/01/18 @ 15:57 by Lorelei Grant) Vasa previa (Acute) Contraception management (Acute) Antepartum cervical shortening (Acute) Marginal insertion of umbilical cord (Acute) (Acute) History of delivery, antepartum (Acute) BMI 30.0-30.9,adult (Acute) Supervision of normal (Acute) Placenta previa antepartum (Resolved) Vaginal bleeding during (Resolved)
[2018-10-26 10:30] LABS: Hematocrit 28.9 % (37-47); Hemoglobin 9.6 g/dl (12.0-15.0)
[2018-10-26 10:37] LABS: International Normalized Ratio 1.2; Partial Thromboplast Time 24.9 Seconds (24.1-36.2); Prothrombin Time (Protime)PT. 14.9 SECONDS (11.7-14.9)
[2018-10-26 10:43] LABS: Fibrinogen 357 mg/dl (203-444)
[2018-10-26] MEDS: Sertraline 50 MG Tablet PO (10:46)
[2018-10-26] MEDS: Famotidine 20 MG Tablet 40 MG PO (10:46)
[2018-10-26] MEDS: Enoxaparin 40 MG/0.4 ML Syringe SC (11:50)
[2018-10-26] MEDS: HYDROmorphone 1 MG/ML Syringe IV ×3 (13:37→22:45)
[2018-10-26] MEDS: Ketorolac 30 MG/ML Syringe IV ×2 (13:37→20:05)
--- NOTE | 2018-10-26 15:42 | NURSING ---
baby transferred to [facility]
--- NOTE | 2018-10-26 18:15 | PN.OBGYN_ITS ---
Subjective: doing well pain fairly controlled no CP SOB - Physical Exam General: Alert, Oriented x3 Abdomen: Soft, Non Tender, Non-Distended Vital Signs Temp Pulse Resp BP Pulse Ox 99.7 F H 100 16 127/70 H 98 10/26/18 17:33 18 17:33 10/26/18 17:33 10/26/18 13:00 10/26/18 17:33 Oxygen Delivery Method Room Air Weight: 226 lb 3.108 oz Body Mass Index (BMI) 33.3 Intake and Output for Last 24 Hours 10/24/18 10/25/18 10/26/18 23:59 23:59 23:59 Intake Total 4000 / 4000 848 / 848 Output Total 200 / 200 200 / 200 Balance 3800 / 3800 648 / 648 Laboratory Tests Past 24 Hrs 10/25/18 10/25/18 10/25/18 10:15 10:15 18:18 WBC RBC Hgb Hct MCV MCH MCHC RDW RDW Differential Plt Count MPV Immature Gran % (Auto) Neut % (Auto) Lymph % (Auto) [place] % (Auto) Eos % (Auto) Baso % (Auto) Absolute Neuts (auto) Absolute Lymphs (auto) Total Counted Differential Comment PT INR APTT Fibrinogen Sodium Potassium Chloride Carbon Dioxide Anion Gap BUN Creatinine Estim Creat Clear Calc Est GFR (MDRD) Af Amer Est GFR (MDRD) Non-Af BUN/Creatinine Ratio Glucose Calcium Total Bilirubin AST ALT Alkaline Phosphatase Total Protein Albumin Globulin Albumin/Globulin Ratio Crossmatch See Detail See Detail See Detail 10/25/18 10/25/18 10/25/18 18:28 18:28 18:42 WBC 12.6 H RBC 3.01 L Hgb 9.5 L Hct 28.5 L MCV 94.7 MCH 31.6 MCHC 33.3 RDW 13.0 RDW Differential 44.5 H Plt Count 304 MPV 8.5 Immature Gran % (Auto) 0.200 Neut % (Auto) 71.5 H Lymph % (Auto) 18.2 L [place] % (Auto) 9.4 Eos % (Auto) 0.5 Baso % (Auto) 0.2 Absolute Neuts (auto) 9.0 H Absolute Lymphs (auto) 2.28 Total Counted Not Reportable Differential Comment PT 14.6 INR 1.1 APTT 24.1 Fibrinogen 382 Sodium Potassium Chloride Carbon Dioxide Anion Gap BUN Creatinine Estim Creat Clear Calc Est GFR (MDRD) Af Amer Est GFR (MDRD) Non-Af BUN/Creatinine Ratio Glucose Calcium Total Bilirubin AST ALT Alkaline Phosphatase Total Protein Albumin Globulin Albumin/Globulin Ratio Crossmatch See Detail 10/25/18 10/25/18 10/25/18 19:28 19:28 20:10 WBC 26.9 H RBC 3.57 L Hgb 10.9 L Hct 32.9 L MCV 92.2 MCH 30.5 MCHC 33.1 RDW 13.7 RDW Differential 45.8 H Plt Count 219 MPV 8.1 Immature Gran % (Auto) 0.300 Neut % (Auto) 82.8 H Lymph % (Auto) 9.3 L [place] % (Auto) 7.4 Eos % (Auto) 0.1 Baso % (Auto) 0.1 Absolute Neuts (auto) 22.3 H Absolute Lymphs (auto) 2.50 Total Counted Not Reportable Differential Comment SCANNED PT 14.7 14.9 INR 1.2 1.2 APTT 26.2 26.3 Fibrinogen 329 Sodium Potassium Chloride Carbon Dioxide Anion Gap BUN Creatinine Estim Creat Clear Calc Est GFR (MDRD) Af Amer Est GFR (MDRD) Non-Af BUN/Creatinine Ratio Glucose Calcium Total Bilirubin AST ALT Alkaline Phosphatase Total Protein Albumin Globulin Albumin/Globulin Ratio Crossmatch 10/25/18 10/25/18 10/26/18 20:10 20:10 00:10 WBC 19.8 H RBC 3.16 L Hgb 9.7 L 9.7 L Hct 28.9 L 28.6 L MCV 91.5 MCH 30.7 MCHC 33.6 RDW 13.8 RDW Differential 45.8 H Plt Count 205 MPV 8.1 Immature Gran % (Auto) Neut % (Auto) Lymph % (Auto) [place] % (Auto) Eos % (Auto) Baso % (Auto) Absolute Neuts (auto) Absolute Lymphs (auto) Total Counted Differential Comment PT INR APTT Fibrinogen Sodium 140 Potassium 4.5 Chloride 109 H Carbon Dioxide 20.0 L Anion Gap 11 BUN 8 Creatinine 0.47 L Estim Creat Clear Calc 191.22 Est GFR (MDRD) Af Amer 205 Est GFR (MDRD) Non-Af 169 BUN/Creatinine Ratio 16.9 Glucose 95 Calcium 7.2 L Total Bilirubin 0.60 AST 15 ALT 11 L Alkaline Phosphatase 84 Total Protein 4.6 L Albumin 2.0 L Globulin 2.6 Albumin/Globulin Ratio 0.8 L Crossmatch 10/26/18 10/26/18 10/26/18 00:10 04:15 04:15 WBC 14.8 H RBC 2.86 L Hgb 9.0 L Hct 26.5 L MCV 92.7 MCH 31.5 MCHC 34.0 RDW 14.3 RDW Differential 46.4 H Plt Count 214 MPV 8.2 Immature Gran % (Auto) Neut % (Auto) Lymph % (Auto) [place] % (Auto) Eos % (Auto) Baso % (Auto) Absolute Neuts (auto) Absolute Lymphs (auto) Total Counted Differential Comment PT 14.2 14.8 INR 1.1 1.2 APTT 23.0 L 24.8 Fibrinogen 304 312 Sodium Potassium Chloride Carbon Dioxide Anion Gap BUN Creatinine Estim Creat Clear Calc Est GFR (MDRD) Af Amer Est GFR (MDRD) Non-Af BUN/Creatinine Ratio Glucose Calcium Total Bilirubin AST ALT Alkaline Phosphatase Total Protein Albumin Globulin Albumin/Globulin Ratio Crossmatch 10/26/18 10/26/18 10/26/18 04:15 10:15 10:15 WBC RBC Hgb 9.6 L Hct 28.9 L MCV MCH MCHC RDW RDW Differential Plt Count MPV Immature Gran % (Auto) Neut % (Auto) Lymph % (Auto) [place] % (Auto) Eos % (Auto) Baso % (Auto) Absolute Neuts (auto) Absolute Lymphs (auto) Total Counted Differential Comment PT 14.9 INR 1.2 APTT 24.9 Fibrinogen 357 Sodium 142 Potassium 4.1 Chloride 108 H Carbon Dioxide 26.0 Anion Gap 8 BUN 9 Creatinine 0.46 L Estim Creat Clear Calc 195.38 Est GFR (MDRD) Af Amer 212 Est GFR (MDRD) Non-Af 175 BUN/Creatinine Ratio 19.5 Glucose 84 Calcium 7.5 L Total Bilirubin AST ALT Alkaline Phosphatase Total Protein Albumin Globulin Albumin/Globulin Ratio Crossmatch Medical Necessity - Tobacco Use Smoking Status: Never smoker Assessment/Plan All Active Problems (Last Reviewed 10/01/18 @ 15:57 by Lorelei Grant) Vasa previa (Acute) Contraception management (Acute) Antepartum cervical shortening (Acute) Marginal insertion of umbilical cord (Acute) (Acute) History of delivery, antepartum (Acute) BMI 30.0-30.9,adult (Acute) Supervision of normal (Acute) Placenta previa antepartum (Resolved) Vaginal bleeding during (Resolved) A/P: 23 yo s/p hysterectomy due to severe hemorrhage, POD 1 1. anemia secondary to acute blood loss- in ICU, following H/H and transfuse PRN. s/p 4 U PRBCs and 2 U FFP. appreciate ICU management- now transferred to floor 2. s/p hysterectomy- ambulate 3. - pumping at present 4. DVT prophylaxis- SCDs, lovenox 5. dc orellana once ambulating
[2018-10-26] MEDS: Senna/Docusate Sodium 1 Tablet PO (19:00)
[2018-10-27] VITALS (11 sets, daily range): BP systolic 106–128; BP diastolic 55–67; PULSE 89–109; RESP 16; TEMP 37–37.9; O2SAT 96–100
[2018-10-27] MEDS: Ketorolac 30 MG/ML Syringe IV ×4 (01:03→20:51)
[2018-10-27] MEDS: Acetaminophen 500 MG Tablet 1000 MG PO ×2 (01:42→11:16)
--- NOTE | 2018-10-27 02:03 | DCINST_ITS ---
Discharge Diet: No Restrictions Discharge Activity: Return to Normal Activity, May Not Drive - while taking narcotic pain medications. May resume sexual activity in: 6-8 weeks Call your doctor if your incision/area has: Continuous Slow Oozing, Sudden Increased Bleeding, Increased Pain/ Swelling, Increased Redness, Foul Smelling Discharge Call your doctor if you observe: Fever of 101 or Higher Allergies/Adverse Reactions: Allergies No Known Allergies Allergy (Verified 10/15/18 08:23) Medications to take at Discharge vit 123-iron 28 mg-folic acid 800 [id number] 235 mg capsule 1 cap PO QDAY 05/07/18 Famotidine 40 mg PO DAILY 09/08/18 Progesterone, Micronized [Prometrium] 200 mg VAGINAL DAILY 09/11/18 Sertraline HCl [Zoloft] 50 mg PO QDAY 10/15/18 Ferrous Sulfate [Slow Fe] 142 mg PO BID #60 tablet.er 10/27/18 Naproxen [Naprosyn] 250 - 500 mg PO Q8H PRN PRN #30 tablet 10/27/18 Oxycodone HCl/Acetaminophen [Percocet 5-325] 1 - 2 tablet PO Q4H PRN PRN 7 Days #28 tablet 10/27/18 The following prescriptions were given: Oxycodone HCl/Acetaminophen [Percocet 5-325] 1 - 2 tablet PO Q4H PRN PRN 7 Days #28 tablet PRN Reason: Moderate-Severe pain Naproxen [Naprosyn] 250 - 500 mg PO Q8H PRN PRN #30 tablet PRN Reason: MILD PAIN Ferrous Sulfate [Slow Fe] 142 mg PO BID #60 tablet.er Primary Care Physician: Meño Willis DO [Primary Care Provider] - Test Results: Test results from this visit will be discussed in further detail at your follow- up appointment, if applicable. Please Follow Up With: Savana Solis MD - [phone] When: in 2 weeks
[2018-10-27 05:49] LABS: Hematocrit 22.1 % (37-47); Hemoglobin 7.4 g/dl (12.0-15.0); Mean Corp Hgb Conc 33.5 g/gl (32-36); Mean Corpuscular Hgb 30.7 pg (27.0-32.0); Mean Corpuscular Volume 91.7 fL (81-99); Mean Platelet Vol. 7.9 fl (6.2-12.0); Platelet Count 159 K/mm3 (150-450); RBC Distribution Width CV 14.3 % (11.6-14.6); RBC Distribution Width SD 47.3 fl (35.1-43.9); Red Blood Count 2.41 M/mm3 (4.2-5.4); White Blood Count 18.4 K/mm3 (4.4-11.0)
[2018-10-27 05:56] LABS: Scan Indicated on CBC? Y/N NO
[2018-10-27] MEDS: 0.9% Saline Lock 10 ML Syringe IV ×2 (08:21→14:46)
[2018-10-27] MEDS: oxyCODONE 5 MG Tablet PO ×2 (13:31→20:07)
[2018-10-27] MEDS: Enoxaparin 40 MG/0.4 ML Syringe SC (15:43)
[2018-10-27 20:33] LABS: Hematocrit 29.9 % (37-47)
--- NOTE | 2018-10-27 20:39 | PCM.PN.OB ---
Subjective: late entry- patient seen at 9:30 am- some low grade temps but overall feeling alright. orellana still in, has gotten up some, tolerating po. no CP SOB N V no dizziness - Physical Exam General: Alert, Oriented x3 Lungs: Normal air movement Cardiovascular: Tachycardic Abdomen: Soft, Non Tender, Non-Distended Vital Signs Temp Pulse Resp BP Pulse Ox 99.7 F H 105 H 16 124/58 H 100 10/27/18 20:29 10/27/18 20:29 10/27/18 20:29 10/27/18 20:29 10/27/18 20:29 Oxygen Delivery Method Room Air Weight: 226 lb 3.108 oz Body Mass Index (BMI) 33.3 Intake and Output for Last 24 Hours 10/25/18 10/26/18 10/27/18 23:59 23:59 23:59 Intake Total 4000 / 4000 1298 / 1298 2100 / 2100 Output Total 200 / 200 1000 / 1000 3200 / 3200 Balance 3800 / 3800 298 / 298 -1100 / -1100 Laboratory Tests Past 24 Hrs 10/25/18 10/25/18 10/27/18 18:18 18:42 05:40 WBC 18.4 H RBC 2.41 L Hgb 7.4 L Hct 22.1 L MCV 91.7 MCH 30.7 MCHC 33.5 RDW 14.3 RDW Differential 47.3 H Plt Count 159 MPV 7.9 Blood Type Antibody Screen Crossmatch See Detail See Detail 10/27/18 10/27/18 09:10 20:15 WBC RBC Hgb 10.0 L Hct 29.9 L MCV MCH MCHC RDW RDW Differential Plt Count MPV Blood Type A POSITIVE Antibody Screen NEGATIVE Crossmatch See Detail Medical Necessity - Tobacco Use Smoking Status: Never smoker Assessment/Plan All Active Problems (Last Reviewed 10/01/18 @ 15:57 by Lorelei Grant) Vasa previa (Acute) Contraception management (Acute) Antepartum cervical shortening (Acute) Marginal insertion of umbilical cord (Acute) (Acute) History of delivery, antepartum (Acute) BMI 30.0-30.9,adult (Acute) Supervision of normal (Acute) Placenta previa antepartum (Resolved) Vaginal bleeding during (Resolved) A/P: 23 yo s/p hysterectomy due to severe hemorrhage, POD 1 1. anemia secondary to acute blood loss- s/p ICU admission following H/H and transfuse PRN. s/p 4 U PRBCs and 2 U FFP. will give additional 2 units today due to lower Hg this morning and tachycardia. likely due to normalization of fluid status after surgery. check Hg 4 hrs post transfusion 2. s/p hysterectomy- ambulate 3. - pumping at present 4. DVT prophylaxis- SCDs, lovenox
[2018-10-28] VITALS (7 sets, daily range): BP systolic 117–124; BP diastolic 56–61; PULSE 86–101; RESP 16–18; TEMP 36.8–38.1; O2SAT 98–99
[2018-10-28] MEDS: 0.9% Saline Lock 10 ML Syringe IV ×2 (02:08→09:00)
[2018-10-28] MEDS: Ketorolac 30 MG/ML Syringe IV ×2 (02:08→09:00)
[2018-10-28] MEDS: Enoxaparin 40 MG/0.4 ML Syringe SC (05:31)
[2018-10-28] MEDS: oxyCODONE 5 MG Tablet PO ×3 (05:41→17:55)
--- NOTE | 2018-10-28 08:12 | PCM.PN.OB ---
Subjective: pain decreased, moving around more, small amount vaginal bleeding. no CP SOB N V - Physical Exam General: Alert, Oriented x3 Cardiovascular: Regular rate Abdomen: Soft, Non Tender Vital Signs Temp Pulse Resp BP Pulse Ox 99.8 F H 100 16 117/61 99 10/28/18 02:15 10/28/18 02:15 10/28/18 02:15 10/28/18 02:15 10/28/18 02:15 Oxygen Delivery Method Room Air Weight: 226 lb 3.108 oz Body Mass Index (BMI) 33.3 Intake and Output for Last 24 Hours 10/26/18 10/27/18 10/28/18 23:59 23:59 23:59 Intake Total 1298 / 1298 2100 / 2100 1300 / 1300 Output Total 1000 / 1000 3200 / 3200 600 / 600 Balance 298 / 298 -1100 / -1100 700 / 700 Laboratory Tests Past 24 Hrs 10/25/18 10/25/18 10/27/18 18:18 18:42 09:10 Hgb Hct Blood Type A POSITIVE Antibody Screen NEGATIVE Crossmatch See Detail See Detail See Detail 10/27/18 20:15 Hgb 10.0 L Hct 29.9 L Blood Type Antibody Screen Crossmatch Medical Necessity - Tobacco Use Smoking Status: Never smoker Assessment/Plan All Active Problems (Last Reviewed 10/01/18 @ 15:57 by Lorelei Grant) Vasa previa (Acute) Contraception management (Acute) Antepartum cervical shortening (Acute) Marginal insertion of umbilical cord (Acute) (Acute) History of delivery, antepartum (Acute) BMI 30.0-30.9,adult (Acute) Supervision of normal (Acute) Placenta previa antepartum (Resolved) Vaginal bleeding during (Resolved) A/P: 23 yo s/p hysterectomy due to severe hemorrhage, POD 3 1. anemia secondary to acute blood loss- s/p ICU admission following H/H and transfuse PRN. s/p 6 U PRBCs and 2 U FFP. stable and doing well 2. s/p hysterectomy- ambulate 3. - pumping at present 4. DVT prophylaxis- SCDs, lovenox 5. mildly elevated temp- likely inflammatory reaction, continue tylenol and monitor for infection
[2018-10-28] MEDS: Senna/Docusate Sodium 1 Tablet PO (08:56)
[2018-10-28] MEDS: Acetaminophen 500 MG Tablet 1000 MG PO ×2 (08:58→17:50)
--- NOTE | 2018-10-28 18:40 | RAD_ITS ---
STUDY: X-RAY CHEST REASON FOR EXAM: Female, 23 years old. Recent . Fever. TECHNIQUE: Frontal and lateral views of the chest. COMPARISON: None. FINDINGS: The lungs are clear and expanded. There is no demonstrated pleural abnormality. Normal size heart. Normal mediastinum and lizbeth. Normal visualized pulmonary arteries. Normal visualized aortic arch and descending thoracic aorta. Normal visualized thoracic spine. Normal visualized ribs, clavicles, and shoulders. There is no demonstrated abnormality of the visualized soft tissue structures of the upper abdomen. RAD/Chest PA and Lateral IMPRESSION: Normal x-ray examination of the chest. Electronically Signed: Boubacar Luna MD at 19:14 EST , Service support ,
[2018-10-28] MEDS: Ibuprofen 600 MG Tablet PO (18:57)
[2018-10-29 02:10] VITALS: BP 109/58; PULSE 77; RESP 16; TEMP 36.9; O2SAT 98
[2018-10-29] MEDS: Ibuprofen 600 MG Tablet PO ×2 (02:12→10:15)
[2018-10-29 06:06] VITALS: TEMP 36.9
[2018-10-29] MEDS: Enoxaparin 40 MG/0.4 ML Syringe SC (06:06)
[2018-10-29] MEDS: Acetaminophen 500 MG Tablet 1000 MG PO (06:07)
[2018-10-29] MEDS: Senna/Docusate Sodium 1 Tablet PO (08:58)
[2018-10-29 09:02] VITALS: BP 117/67; PULSE 82; RESP 16; TEMP 36.8; O2SAT 97
--- NOTE | 2018-10-29 09:18 | PCM.PN.OB ---
Subjective: pain controlled, had elevated temp again last night but normal CXR no CP SOB N V feeling better now - Physical Exam General: Alert, Oriented x3 Oral: Moist Mucosa Lungs: Normal air movement Cardiovascular: Regular rate Abdomen: Soft, Non Tender, Non-Distended Extremities: No Calf Tenderness, Edema Vital Signs Temp Pulse Resp BP Pulse Ox 98.2 F 82 16 117/67 97 10/29/18 09:02 10/29/18 09:02 10/29/18 09:02 10/29/18 09:02 10/29/18 09:02 Oxygen Delivery Method Room Air Weight: 226 lb 3.108 oz Body Mass Index (BMI) 33.3 Intake and Output for Last 24 Hours 10/27/18 10/28/18 10/29/18 23:59 23:59 23:59 Intake Total 2100 / 2100 1300 / 1300 Output Total 3200 / 3200 600 / 600 Balance -1100 / -1100 700 / 700 Medical Necessity - Tobacco Use Smoking Status: Never smoker Assessment/Plan All Active Problems (Last Reviewed 10/01/18 @ 15:57 by Lorelei Grant) Vasa previa (Acute) Contraception management (Acute) Antepartum cervical shortening (Acute) Marginal insertion of umbilical cord (Acute) (Acute) History of delivery, antepartum (Acute) BMI 30.0-30.9,adult (Acute) Supervision of normal (Acute) Placenta previa antepartum (Resolved) Vaginal bleeding during (Resolved) A/P: 23 yo s/p hysterectomy due to severe hemorrhage, POD 3 1. anemia secondary to acute blood loss- s/p ICU admission following H/H and transfuse PRN. s/p 6 U PRBCs and 2 U FFP. stable and doing well 2. s/p hysterectomy- ambulate 3. - pumping at present 4. DVT prophylaxis- SCDs, lovenox 5. mildly elevated temp- likely inflammatory reaction, continue tylenol and monitor for infection. neg cxr, urine culture sent
[2018-10-29 14:15] VITALS: BP 134/77; PULSE 92; RESP 16; TEMP 36.4; O2SAT 99
--- NOTE | 2018-10-31 22:25 | PCM.DC.SUM ---
Discharge Date and Diagnosis Date of Admission: 10/15/18 Date of Discharge: 10/29/18 - Primary Discharge Diagnosis vasa previa, hemorrhage, anemia secondary to acute blood loss, s/p hysterectomy Hospital Course and Treatment Imaging Results: negative chest xray, reassuring BPPs antepartum ICU, Urogyn intraoperative Operations: - - hysterectomy Procedures: Aterial line placement Summary of Care Provided: The patient is a 23 year old F who presented at 32 weeks for inpatient expectant management of vasa previa. Patient had been initially seen as an outpatient and was following with [facility] maternal medicine for a anterior placenta previa which was noted to subsequently resolve however upon an MRI a vasa previa was noted. There was no placental invasion of surrounding organs seen on imaging. After consultation with maternal medicine they recommended inpatient management until delivery at 34 weeks via repeat . It was discussed preadmission with the maternal medicine specialist, the [facility]'s [place] nursing officer, and the patient regarding location for admission and she met criteria for local admission and the patient preferred this to be closer to her daughter and family particularly around the holidays. Patient was monitored for 1 hour twice daily during her antepartum admission and was getting twice weekly biophysical profiles which were all reassuring. At 33 weeks and 3 days patient passed a large brown mucous plug appearing structure vaginally and this was discussed with maternal medicine and they recommended immediate delivery due to suspicion of imminent labor. Patient had a history of shortened cervical length that was being treated with progesterone vaginal capsules. Patient underwent spinal anesthesia and section began and after the baby was delivered patient developed severe hemorrhage due to enlarged and abnormal vasculature that was noted in the lower uterine segment. An additional SOFTWARE ENGINEER was called in for assistance and urogynecology was consulted for possible bladder invasion by the structures and it was felt that it was not a placenta percreta however large, abnormal blood vessels were noted to be present connecting the lower uterine segment to the bladder which was unusual. hysterectomy was performed and patient received 4 units of red blood cells and 2 units of FFP intraoperatively. Overall blood loss was at least 5500 cc. patient tolerated surgery well and did not develop DIC or any other perioperative complications and was monitored in the ICU postoperatively and was noted to be stable. On postop day 2 her hemoglobin had dropped down to 7.5 and she was tachycardic with any activity so she was transfused an additional 2 units. Patient developed some low-grade temperatures post operatively but nothing was persistent and therefore likely inflammatory due to the transfusion and the extent of surgery. By postop day 4 patient was ambulating well tolerating p.o. and had adequate pain control with oral medications. Patient was stable for discharge to home. - Physical Exam Vital Signs Temp Pulse Resp BP Pulse Ox 97.6 F L 92 16 134/77 H 99 10/29/18 14:15 10/29/18 14:15 10/29/18 14:15 10/29/18 14:15 10/29/18 14:15 Oxygen Delivery Method Room Air Weight: 226 lb 3.108 oz Body Mass Index (BMI) 33.3 Microbiology Past 72 Hours 10/28/18 22:20 Urine Culture - Final Urine, Clean Catch Mixed Gram Pos & Gram Neg Org Discharge Diet: No Restrictions Discharge Activity: Return to Normal Activity, May Not Drive - while taking narcotic pain medications. May resume sexual activity in: 6-8 weeks Call your doctor if your incision/area has: Continuous Slow Oozing, Sudden Increased Bleeding, Increased Pain/ Swelling, Increased Redness, Foul Smelling Discharge Call your doctor if you observe: Fever of 101 or Higher Home Medications: Medications to take at Discharge vit 123-iron 28 mg-folic acid 800 [id number] 235 mg capsule 1 cap PO QDAY 05/07/18 Famotidine 40 mg PO DAILY 09/08/18 Progesterone, Micronized [Prometrium] 200 mg VAGINAL DAILY 09/11/18 Sertraline HCl [Zoloft] 50 mg PO QDAY 10/15/18 Ferrous Sulfate [Slow Fe] 142 mg PO BID #60 tablet.er 10/27/18 Naproxen [Naprosyn] 250 - 500 mg PO Q8H PRN PRN #30 tablet 10/27/18 Oxycodone HCl/Acetaminophen [Percocet 5-325] 1 - 2 tablet PO Q4H PRN PRN 7 Days #28 tablet 10/27/18 Following Prescrptions Were Given to Patient: Oxycodone HCl/Acetaminophen [Percocet 5-325] 1 - 2 tablet PO Q4H PRN PRN 7 Days #28 tablet PRN Reason: Moderate-Severe pain Naproxen [Naprosyn] 250 - 500 mg PO Q8H PRN PRN #30 tablet PRN Reason: MILD PAIN Ferrous Sulfate [Slow Fe] 142 mg PO BID #60 tablet.er Primary Care Physician: Meño Willis DO [Primary Care Provider] - Please Follow Up With: Savana Solis MD When: in 2 weeks Please Follow Up With: Savana Solis MD When: Make appt in 6 weeks for follow-up. Medical Necessity - Tobacco Use Smoking Status: Never smoker Meaningful Use Info Meaningful Use Diagnoses (Choose all that apply): None applicable
--- NOTE | 2018-10-31 22:37 | DS.PCM_ITS ---
Discharge Date and Diagnosis Date of Admission: 10/15/18 Date of Discharge: 10/29/18 - Primary Discharge Diagnosis vasa previa, hemorrhage, anemia secondary to acute blood loss, s/p hysterectomy Hospital Course and Treatment Imaging Results: negative chest xray, reassuring BPPs antepartum ICU, Urogyn intraoperative Operations: - - hysterectomy Procedures: Aterial line placement Summary of Care Provided: The patient is a 23 year old F who presented at 32 weeks for inpatient expectant management of vasa previa. Patient had been initially seen as an outpatient and was following with [facility] maternal medicine for a anterior placenta previa which was noted to subsequently resolve however upon an MRI a vasa previa was noted. There was no placental invasion of surrounding organs seen on imaging. After consultation with maternal medicine they recommended inpatient management until delivery at 34 weeks via repeat C- section. It was discussed preadmission with the maternal medicine specialist, the [facility]'s [place] manager nursing, and the patient regarding location for admission and she met criteria for local admission and the patient preferred this to be closer to her daughter and family particularly around the holidays. Patient was monitored for 1 hour twice daily during her antepartum admission and was getting twice weekly biophysical profiles which were all reassuring. At 33 weeks and 3 days patient passed a large brown mucous plug appearing structure vaginally and this was discussed with maternal medicine and they recommended immediate delivery due to suspicion of imminent labor. Patient had a history of shortened cervical length that was being treated with progesterone vaginal capsules. Patient underwent spinal anesthesia and section began and after the baby was delivered patient developed severe hemorrhage due to enlarged and abnormal vasculature that was noted in the lower uterine segment. An additional CNC LASER OPERATOR was called in for assistance and urogynecology was consulted for possible bladder invasion by the structures and it was felt that it was not a placenta percreta however large, abnormal blood vessels were noted to be present connecting the lower uterine segment to the bladder which was unusual. hysterectomy was performed and patient received 4 units of red blood cells and 2 units of FFP intraoperatively. Overall blood loss was at least 5500 cc. patient tolerated surgery well and did not develop DIC or any other perioperative complications and was monitored in the ICU postoperatively and was noted to be stable. On postop day 2 her hemoglobin had dropped down to 7.5 and she was tachycardic with any activity so she was transfused an additional 2 units. Patient developed some low-grade temperatures post operatively but nothing was persistent and therefore likely inflammatory due to the transfusion and the extent of surgery. By postop day 4 patient was ambulating well tolerating p.o. and had adequate pain control with oral medications. Patient was stable for discharge to home. - Physical Exam Vital Signs Temp Pulse Resp BP Pulse Ox 97.6 F L 92 16 134/77 H 99 10/29/18 14:15 10/29/18 14:15 10/29/18 14:15 10/29/18 14:15 10/29/18 14:15 Oxygen Delivery Method Room Air Weight: 226 lb 3.108 oz Body Mass Index (BMI) 33.3 Microbiology Past 72 Hours 10/28/18 22:20 Urine Culture - Final Urine, Clean Catch Mixed Gram Pos & Gram Neg Org Discharge Diet: No Restrictions Discharge Activity: Return to Normal Activity, May Not Drive - while taking narcotic pain medications. May resume sexual activity in: 6-8 weeks Call your doctor if your incision/area has: Continuous Slow Oozing, Sudden Increased Bleeding, Increased Pain/ Swelling, Increased Redness, Foul Smelling Discharge Call your doctor if you observe: Fever of 101 or Higher Home Medications: Medications to take at Discharge vit 123-iron 28 mg-folic acid 800 [id number] 235 mg capsule 1 cap PO QDAY 05/07/18 Famotidine 40 mg PO DAILY 09/08/18 Progesterone, Micronized [Prometrium] 200 mg VAGINAL DAILY 09/11/18 Sertraline HCl [Zoloft] 50 mg PO QDAY 10/15/18 Ferrous Sulfate [Slow Fe] 142 mg PO BID #60 tablet.er 10/27/18 Naproxen [Naprosyn] 250 - 500 mg PO Q8H PRN PRN #30 tablet 10/27/18 Oxycodone HCl/Acetaminophen [Percocet 5-325] 1 - 2 tablet PO Q4H PRN PRN 7 Days #28 tablet 10/27/18 Following Prescrptions Were Given to Patient: Oxycodone HCl/Acetaminophen [Percocet 5-325] 1 - 2 tablet PO Q4H PRN PRN 7 Days #28 tablet PRN Reason: Moderate-Severe pain Naproxen [Naprosyn] 250 - 500 mg PO Q8H PRN PRN #30 tablet PRN Reason: MILD PAIN Ferrous Sulfate [Slow Fe] 142 mg PO BID #60 tablet.er Primary Care Physician: Meño Willis DO [Primary Care Provider] - Please Follow Up With: Savana Solis MD When: in 2 weeks Please Follow Up With: Savana Solis MD When: Make appt in 6 weeks for follow-up. Medical Necessity - Tobacco Use Smoking Status: Never smoker Meaningful Use Info Meaningful Use Diagnoses (Choose all that apply): None applicable
[2018-11-19 12:49] LABS: Pathology Specimen OB SEE PATHOLOGY REPORT
== END 2018-10-29 14:15 | disposition home or self-care (01) | DRG 787 ==
LOC: WP 10-25 18:58 → ICU 10-25 20:45 → WP 10-26 12:22
PROVIDERS: Anesthesiology; Internal Medicine Critical Care Medicine; Obstetrics & Gynecology; Admitting Provider Obstetrics & Gynecology; Family Provider Student in an Organized Health Care Education/Training Program; PCP Student in an Organized Health Care Education/Training Program; Referring Provider Obstetrics & Gynecology; Visit Provider Obstetrics & Gynecology
PROC: (CPT 59514; principal; 2018-10-31 07:15)
DX: O69.4XX0 Labor and delivery complicated by vasa previa, not applicable or unspecified (principal); O26.873 Cervical shortening, third trimester; D62 Acute posthemorrhagic anemia; O86.4 Pyrexia of unknown origin following delivery; O72.1 Other immediate postpartum hemorrhage; Z3A.32 32 weeks gestation of pregnancy; Z37.0 Single live birth; O90.81 Anemia of the puerperium; Z79.899 Other long term (current) drug therapy
CPT/HCPCS: 36415; 59050; 71046; 74018; 76818; 80048; 80053; 85014; 85018; 85025; 85027; 85384; 85610; 85730; 86644; 86850; 86900; 86920; 86922; 87081; 87086; 87088; 87653; 88307; 99218; J7120; P9016; P9017; A4216; G0378; J0702; J2405; Q9968

== ENCOUNTER → 2018-11-05 17:42 | Outpatient (CLI) | payer BC, SELFPAY ==
[2018-11-05 11:30] VITALS: BMI 33.3
== END ==
PROVIDERS: Family Provider Student in an Organized Health Care Education/Training Program; PCP Student in an Organized Health Care Education/Training Program; Referring Provider Obstetrics & Gynecology; Visit Provider Obstetrics & Gynecology
DX: N39.0 Urinary tract infection, site not specified (principal)
CPT/HCPCS: 87086; 87088

== ENCOUNTER → 2018-11-15 15:16 | Outpatient (CLI) | payer BC, SELFPAY ==
[2018-11-05 11:30] VITALS: BMI 33.3
[2018-11-15 15:29] LABS: Absolute Lymphocyte Count 2.93 X10^3/ul (0.83-4.51); Absolute Neutrophil Count 5.2 X10^3/uL (2.0-7.7); Basophil# 0.05 X10^3/uL; Basophil% 0.5 % (0-1); Eosinophil# 0.19 X10^3/uL; Eosinophils% 2.1 % (0-5); Hematocrit 37.1 % (37-47); Lymphocyte # 2.93 X10^3/ul (4.0); Lymphocyte % 31.8 % (19-41); Mean Corp Hgb Conc 32.3 g/gl (32-36); Mean Corpuscular Hgb 30.3 pg (27.0-32.0); Mean Corpuscular Volume 93.7 fL (81-99); Mean Platelet Vol. 8.3 fl (6.2-12.0); Monocyte# 0.84 X10^3/uL; Monocyte% 9.1 % (0-10); Neutrophil # 5.19 X10^3/uL (2.7-7.7); Neutrophil % 56.4 % (47-70); Platelet Count 448 K/mm3 (150-450); RBC Distribution Width SD 43.6 fl (35.1-43.9); Red Blood Count 3.96 M/mm3 (4.2-5.4); White Blood Count 9.2 K/mm3 (4.4-11.0)
[2018-11-15 15:31] LABS: POSITIVE COUNT NO; POSITIVE DIFFERENTIAL NO; POSITIVE MORPHOLOGY NO
== END ==
PROVIDERS: Family Provider Student in an Organized Health Care Education/Training Program; PCP Student in an Organized Health Care Education/Training Program; Referring Provider Obstetrics & Gynecology; Visit Provider Obstetrics & Gynecology
DX: R42 Dizziness and giddiness (principal)
CPT/HCPCS: 36415; 85025

== ENCOUNTER → 2018-12-12 12:16 | Outpatient (CLI) | payer BC, MEDICAID, SELFPAY ==
[2018-12-12 11:57] VITALS: BMI 33.3
[2018-12-12 13:03] LABS: Absolute Lymphocyte Count 2.31 X10^3/ul (0.83-4.51); Absolute Neutrophil Count 4.9 X10^3/uL (2.0-7.7); Basophil# 0.02 X10^3/uL; Basophil% 0.2 % (0-1); Eosinophil# 0.14 X10^3/uL; Eosinophils% 1.7 % (0-5); Hematocrit 40.6 % (37-47); Hemoglobin 13.1 g/dl (12.0-15.0); Lymphocyte # 2.31 X10^3/ul (4.0); Lymphocyte % 28.7 % (19-41); Mean Corp Hgb Conc 32.3 g/gl (32-36); Mean Corpuscular Hgb 29.8 pg (27.0-32.0); Mean Corpuscular Volume 92.5 fL (81-99); Mean Platelet Vol. 8.3 fl (6.2-12.0); Monocyte# 0.64 X10^3/uL; Neutrophil # 4.93 X10^3/uL (2.7-7.7); Neutrophil % 61.3 % (47-70); Platelet Count 328 K/mm3 (150-450); RBC Distribution Width CV 13.1 % (11.6-14.6); Red Blood Count 4.39 M/mm3 (4.2-5.4); White Blood Count 8.1 K/mm3 (4.4-11.0)
[2018-12-12 13:05] LABS: POSITIVE COUNT NO; POSITIVE DIFFERENTIAL NO; POSITIVE MORPHOLOGY NO
== END ==
PROVIDERS: Family Provider Student in an Organized Health Care Education/Training Program; PCP Student in an Organized Health Care Education/Training Program; Referring Provider Obstetrics & Gynecology; Visit Provider Obstetrics & Gynecology
DX: I10 Essential (primary) hypertension (principal)
CPT/HCPCS: 36415; 85025

== ENCOUNTER → 2020-06-11 | Outpatient (CLI) | payer BC, SELFPAY ==
[2018-12-12 11:57] VITALS: BMI 33.3
== END | disposition home or self-care (01) ==
LOC: LABSPEC 18:09
PROVIDERS: PCP Student in an Organized Health Care Education/Training Program; Referring Provider Nurse Practitioner Family; Visit Provider Nurse Practitioner Family
DX: U07.1 COVID-19 (principal)
CPT/HCPCS: 87635; 94799; U0003

== ENCOUNTER → 2020-08-13 | Outpatient (CLI) | payer BC, SELFPAY ==
[2020-08-13 08:57] VITALS: BMI 33.3
[2020-08-18 07:44] LABS: Chlamydia By Nucleic Acid AMP Negative (Negative)
[2020-08-18 08:03] LABS: Gonococcus By Nucleic Acid AMP Negative (Negative)
== END | disposition home or self-care (01) ==
PROVIDERS: PCP Student in an Organized Health Care Education/Training Program; Referring Provider Obstetrics & Gynecology; Visit Provider Obstetrics & Gynecology
DX: Z11.3 Encounter for screening for infections with a predominantly sexual mode of transmission (principal)
CPT/HCPCS: 87070; 87205; 87491; 87591

== ENCOUNTER 2021-09-28 10:16 | Emergency (ER) | payer BC, SELFPAY ==
[2021-09-28 10:16] VITALS: BP 152/95; PULSE 90; RESP 18; TEMP 36.6; O2SAT 100; BMI 33.2
--- NOTE | 2021-09-28 10:46 | CT_ITS ---
EXAM: CT ABDOMEN AND PELVIS WITHOUT INTRAVENOUS CONTRAST CLINICAL INDICATION: Right flank pain TECHNIQUE: Helically acquired images were obtained of the abdomen and pelvis without intravenous contrast. This CT exam was performed using one or more of the following dose reduction techniques: automated exposure control, adjustment of the mA and/or kV according to patient size, and/or use of iterative reconstruction technique. This report was created using LEHR report generation technology. COMPARISON: None. FINDINGS: LOWER THORAX: Unremarkable. Lung bases are clear. No cardiomegaly. No significant pericardial effusion. ABDOMEN: LIVER: Mild fatty infiltration liver. GALLBLADDER AND BILE DUCTS: Unremarkable. No calcified gallstones. No gallbladder distention or wall edema. No intra- or extrahepatic biliary ductal dilation. PANCREAS: Unremarkable. No focal cystic mass. SPLEEN: Unremarkable. Normal size without focal cystic or solid mass. ADRENALS: Unremarkable. No nodules. KIDNEYS AND URETERS: Unremarkable. Normal renal size and position. No hydronephrosis. STOMACH AND BOWEL: Unremarkable. No stomach or bowel distention. No focal inflammatory change. PELVIS: APPENDIX: No evidence of acute appendicitis. BLADDER: Unremarkable. REPRODUCTIVE: Partial hysterectomy. ABDOMEN and PELVIS: INTRAPERITONEAL SPACE: Unremarkable. No ascites or other fluid collection. No free air. BONES/JOINTS: Facet dominant degenerative changes of the lumbar spine. No suspicious lytic or blastic abnormality. SOFT TISSUES: Unremarkable. No discrete abdominal or pelvic wall hernia. VASCULATURE: There are vascular phleboliths of the pelvis. Abdominal aorta is non-dilated. LYMPH NODES: Unremarkable. No enlarged lymph nodes. CT/Abdomen/Pelvis without Cont IMPRESSION: No hydronephrosis or urinary tract calcifications. Electronically Signed: Elmer Campbell MD (Brooks) at 11:26 EST , Service support ,
--- NOTE | 2021-09-28 10:46 | EX.ED.DYSGE1 ---
HPI History of Present Illness Chief Complaint: Abd Pain Informant: patient Narrative Narrative: 26-year-old female otherwise healthy presents the emergency room with right lower abdominal pain. Patient states that she was at work when she got a sudden severe stabbing right lower quadrant abdominal pain. She states that it has been waxing and waning. She now feels some radiation to her flank and when the pain is severe she develops nausea. She denies any changes in bowel habits. No fevers. She was treated for a urinary tract infection last week with Keflex. [facility] Medical History Acid reflux Anxiety Bicornate uterus Genital herpes History of chlamydia Home Medications valacyclovir 500 mg tablet 500 mg PO DAILY #30 tab 08/13/20 [Rx Last Taken Unknown] Allergy/AdvReac Type Severity Reaction Status Date / Time No Known Allergies Allergy Verified 09/28/21 10:19 Surgical History H/O section (~2009) H/O: hysterectomy Social History adopted: No household members: children housing: apartment number of children: 2 current occupational status: employed current occupation: [employer] Smoking Status: Never smoker second hand exposure: No alcohol intake: never substance use type: does not use caffeine: Yes what type of physical activity do you participate in: walking and running frequency: 1-2 times per week seatbelt use: always do you feel safe at home: Yes additional social history: Single ROS ROS ED Constitutional Constitutional ED: Denies chills, fever(s) or weight loss Eyes Eyes: Denies change in vision or diplopia ENT ENT ED: Denies ear pain, rhinorrhea or sore throat Cardiovascular Cardiovascular: Denies chest pain, orthopnea, palpitations or racing heartbeat Respiratory/Chest Respiratory/Chest: Denies cough, dyspnea or orthopnea Gastrointestinal Gastrointestinal: Reports abdominal pain and nausea; Denies diarrhea or vomiting Genitourinary Genitourinary ED: Denies dysuria, hematuria or urinary frequency Musculoskeletal Musculoskeletal: Denies arthralgias or myalgias Integumentary Denies abscess or rash Neurologic Neurologic: Denies headache(s) or weakness Psychiatric Psychiatric: Denies anxiety, depression, suicidal ideation or suicidal thoughts Endocrine Endocrinology: Denies polydipsia, polyphagia or polyuria Allergic/Immunologic Allergic/Immunologic ED: Denies mouth swelling, tongue swelling or urticaria EXAM Physical Exam Const Vital Signs: 09/28/21 10:16 Temperature 97.8 F Temperature Source Temporal Pulse Rate 90 Respiratory Rate 18 Blood Pressure 152/95 H Blood Pressure Mean 114 Pulse Ox 100 Oxygen Delivery Method Room Air Positive well nourished, well developed and obese General Appearance ED: well developed Nutritional Appearance: obese HEENT Reports normocephalic, head/scalp atraumatic, TM's clear and moist mucous membranes Negative for trauma Tympanic Membrane ED: Yes TM's clear Eyes PERRL and EOMs intact bilaterally Neck no lymphadenopathy, supple and no JVD Resp normal respiratory effort and clear to auscultation bilaterally Cardio regular rate, regular rhythm and no murmurs GI Palpation: soft and tender RLQ; Negative for guarding Back/Spine no CVA tenderness and normal ROM Extremity normal to inspection General Extremety ED: Negative for edema General Extremity: Negative for edema Neuro oriented x3 and CN's II-XII intact bilaterally Sensorium / Orientation: alert Motor Exam: strength 5/5 throughout Psych mental status grossly normal Mood & Affect: Negative for depressed or tearful Skin no rashes or lesions noted and no wounds MDM MDM MDM Narrative Medical decision making narrative: CBC and BMP were normal. Urinalysis with 25-50 white cells but no bacteria no red cells and nitrite negative. CT the abdomen pelvis did not demonstrate any ureterolithiasis. Patient received Toradol and Zofran. Repeat examination finds the patient to be doing better. At this point I cannot tell her exactly why she had that pain I do not see anything emergent. Patient to return if worsening or concerns. Return instructions were given for abdominal pain of unknown etiology. Lab Data Attestation: I reviewed the patient's lab results. Labs: Laboratory Results - last 24 hr 09/28/21 09/28/21 09/28/21 10:41 10:41 10:50 WBC 7.2 RBC 4.54 Hgb 14.1 Hct 41.2 MCV 90.7 MCH 31.1 MCHC 34.2 RDW Std Deviation 39.2 RDW Coeff of Yogesh 11.8 Plt Count 353 MPV 8.3 Immature Gran % (Auto) 0.300 Neut % (Auto) 60.8 Lymph % (Auto) 29.0 Cook % (Auto) 7.3 Eos % (Auto) 2.0 Baso % (Auto) 0.6 Absolute Neuts (auto) 4.4 Absolute Lymphs (auto) 2.07 Nucleated RBC % 0 Sodium 137 Potassium 4.2 Chloride 108 H Carbon Dioxide 24.0 Anion Gap 5 BUN 12 Creatinine 0.75 Estim Creat Clear Calc 116.71 Est GFR (MDRD) Af Amer 119 Est GFR (MDRD) Non-Af 98 BUN/Creatinine Ratio 16.1 Glucose 93 Calcium 8.6 Urine Color Straw Urine Clarity Sl. Cloudy Urine pH 6.0 Ur Specific [place] 1.010 Urine Protein Negative Urine Glucose (UA) Normal Urine Ketones Negative Urine Occult Blood Negative Urine Nitrite Negative Urine Bilirubin Negative Urine Urobilinogen Normal Ur Leukocyte Esterase 500 H Urine RBC 0 SEEN Urine WBC 25-50 SEEN Ur Squamous Epith Cells 0-5 SEEN Urine Bacteria 0 SEEN Urine Mucus 0 SEEN Radiography Diagnostic Testing: Clinical Impression(s) from Imaging Studies Abdomen/Pelvis CT 09/28/21 10:46 IMPRESSION: No hydronephrosis or urinary tract calcifications. Electronically Signed: Elmer Campbell MD (Brooks) at 11:26 EST , Service support , Discharge Plan Triage Chief Complaint: Abd Pain ED Provider: Jared Dorantes Dx/Rx/DC Orders Clinical Impression: Abdominal pain Instructions: ED Abdominal Pain Unkn Cause Fem Prescriptions: No Action valacyclovir 500 mg tablet 500 mg PO DAILY Qty: 30 RF: 12 Primary Care Provider: Meño Willis Referrals: Meño Willis DO [Primary Care Provider] - As Needed Disposition Disposition: Home, Self Care
[2021-09-28 10:53] LABS: Absolute Lymphocyte Count 2.07 X10^3/uL (0.83-4.51); Absolute Neutrophil Count 4.4 X10^3/uL (2.0-7.7); Basophil# 0.04 X10^3/uL; Basophil% 0.6 % (0-1); Eosinophil# 0.14 X10^3/uL; Hematocrit 41.2 % (37-47); Hemoglobin 14.1 g/dL (12.0-15.0); Lymphocyte # 2.07 X10^3/ul (0.83-4.51); Mean Corp Hgb Conc 34.2 g/dL (32-36); Mean Corpuscular Hgb 31.1 pg (27.0-32.0); Mean Corpuscular Volume 90.7 fL (81-99); Mean Platelet Vol. 8.3 fl (6.2-12.0); Monocyte# 0.52 X10^3/uL; Monocyte% 7.3 % (0-10); NRBC Flagged by Analyzer 0 % (0-5); Neutrophil # 4.36 X10^3/uL (2.7-7.7); Neutrophil % 60.8 % (47-70); Platelet Count 353 K/mm3 (150-450); RBC Distribution Width CV 11.8 % (11.6-14.6); RBC Distribution Width SD 39.2 fl (35.1-43.9); Red Blood Count 4.54 M/mm3 (4.2-5.4); White Blood Count 7.2 K/mm3 (4.4-11.0)
[2021-09-28 10:55] LABS: Bacteria 0 SEEN /hpf (None Seen); Mucous, Urine 0 SEEN /hpf (<or=2+); Red Blood Cells-Urine 0 SEEN /hpf (0-5)
[2021-09-28 10:57] LABS: Color, Urine Straw (Yellow); Glucose, Dipstick Normal (Normal); Ketone-Dipstick Negative (Negative); Leukocyte Esterase-Dipstick 500 /ul (Negative); Nitrite-Dipstick Negative (Negative); Occult Blood-Urine Negative /ul (Negative); Protein-Dipstick Negative (Negative); Urine Bilirubin Dipstick Negative (Negative); Urine Clarity Sl. Cloudy (Clear); Urine Urobilinogen Normal (Normal)
[2021-09-28 11:01] LABS: Anion Gap 5 (5-15); BUN 12 mg/dL (7-18); BUN/Creat Ratio 16.1 RATIO (10-20); Calcium,Total 8.6 mg/dL (8.5-10.1); Chloride 108 mmol/L (98-107); Creatinine, Serum 0.75 mg/dL (0.55-1.02); EST Glomerular Filtration Rate 98 mL/min (>60); Est Glom Filt Rate - Afr Amer 119 mL/min (>60); Estimated Creatinine Clearance 116.71 ml/min; Glucose 93 mg/dL (74-106); Potassium 4.2 mmol/L (3.5-5.1); Sodium Level 137 mmol/L (136-145)
[2021-09-28] MEDS: Ondansetron 4 MG/2 ML Vial IV (11:02)
[2021-09-28] MEDS: Ketorolac 30 MG/ML Syringe IV (11:02)
[2021-09-28 11:07] LABS: Squamous Epithelial Cells - UA 0-5 SEEN /hpf (5-10); White Blood Cells 25-50 SEEN /hpf (0-5)
[2021-09-28 11:56] VITALS: BP 132/78; PULSE 65; RESP 18; O2SAT 99
== END 2021-09-28 11:57 | disposition home or self-care (01) ==
PROVIDERS: Emergency Provider Emergency Medicine; PCP Student in an Organized Health Care Education/Training Program
DX: R10.31 Right lower quadrant pain (principal); F41.9 Anxiety disorder, unspecified; E66.9 Obesity, unspecified; Z79.899 Other long term (current) drug therapy
CPT/HCPCS: 74176; 80048; 81001; 85025; 96374; 96375; 99283; A4216; J2405

== ENCOUNTER → 2023-03-09 | Outpatient (CLI) | payer BC, SELFPAY ==
[2023-03-09 13:27] LABS: Troponin-I HS < 3 pg/mL (3.0-54.0)
== END | disposition home or self-care (01) ==
LOC: LABSPEC 13:08
PROVIDERS: PCP Student in an Organized Health Care Education/Training Program
DX: R07.9 Chest pain, unspecified (principal)
CPT/HCPCS: 84484